=== PATIENT | female | born 1960 | race Caucasian/White ===

== ENCOUNTER 2017-03-29 11:28 | Emergency (ER) | payer OTHER ==
[~2017-03-29] VITALS: Ht 175.3 cm; Wt 74.8 kg
[~2017-03-29 11:28] MED LIST: ATEN50TA PO; CARI350T PO; ESTR10VI2 IM; OXYC30TA2 PO; PREN1TAB81 PO; PROG50VI3 IM; TRIA0.252 PO
--- NOTE | 2017-03-29 11:51 | NUR ---
PT WAS EVALUATED BY DR MCKEON. PT WAS D/C TO HOME. D/C INSTRUCTIONS GIVEN TO THE PT.
[2017-03-29 11:52] VITALS: BP 132/78
== END 2017-03-29 11:53 | disposition home or self-care (01) ==
LOC: ER 11:28
DX: Z76.0 Encounter for issue of repeat prescription (principal); I10 Essential (primary) hypertension; F32.9 Major depressive disorder, single episode, unspecified; G89.29 Other chronic pain; F17.200 Nicotine dependence, unspecified, uncomplicated; Z88.6 Allergy status to analgesic agent
CPT/HCPCS: A4663

== ENCOUNTER 2017-04-10 11:11 | Emergency (ER) | payer OTHER ==
[~2017-04-10] VITALS: Ht 175.3 cm; Wt 74.8 kg
[2017-04-10] MEDS ORDERED: PROMETHAZINE HCL 25 MG/1 ML VIAL IM ONE (12:00)
[2017-04-10] MEDS ORDERED: HYDROMORPHONE 1 MG/1 ML DISP.SYRIN IM ONE (12:00)
--- NOTE | 2017-04-10 12:01 | NUR ---
MSE COMPLETED, MEDS ADMIN, PT D/C'D HOME, ACI/RX X1 GIVEN. PT AMBULATED W'/O DIFF/TOOK ALL BELONGINGS.
[2017-04-10 12:04] VITALS: BP 142/78
[2017-04-10] MEDS ORDERED: HYDROMORPHONE 2 MG/1 ML DISP.SYRIN ONE (12:08)
[2017-04-10] MEDS ORDERED: PROMETHAZINE HCL 25 MG/1 ML VIAL ONE (12:08)
== END 2017-04-10 12:09 | disposition home or self-care (01) ==
LOC: ER 11:11
DX: M54.9 Dorsalgia, unspecified (principal); G89.29 Other chronic pain; I10 Essential (primary) hypertension; F32.9 Major depressive disorder, single episode, unspecified; F17.200 Nicotine dependence, unspecified, uncomplicated; Z88.6 Allergy status to analgesic agent
CPT/HCPCS: A4663; J1170; J2550

== ENCOUNTER 2017-04-26 14:41 | Emergency (ER) | payer OTHER ==
[~2017-04-26] VITALS: Ht 175.3 cm; Wt 74.8 kg
[2017-04-26] MEDS ORDERED: AMLO2.5T PO (14:52)
[2017-04-26] MEDS ORDERED: PROMETHAZINE HCL 25 MG/1 ML VIAL IM ONE (15:00)
[2017-04-26] MEDS ORDERED: HYDROMORPHONE 1 MG/1 ML DISP.SYRIN IM ONE (15:00)
[2017-04-26] MEDS ORDERED: PROMETHAZINE HCL 25 MG/1 ML VIAL ONE (15:12)
[2017-04-26] MEDS ORDERED: HYDROMORPHONE 2 MG/1 ML DISP.SYRIN ONE (15:12)
== END 2017-04-26 15:06 | disposition home or self-care (01) ==
LOC: ER 14:41
DX: Z76.0 Encounter for issue of repeat prescription (principal); M54.9 Dorsalgia, unspecified; G89.29 Other chronic pain; F17.200 Nicotine dependence, unspecified, uncomplicated; I10 Essential (primary) hypertension; F32.9 Major depressive disorder, single episode, unspecified; Z88.6 Allergy status to analgesic agent
CPT/HCPCS: A4663; J1170; J2550

== ENCOUNTER 2017-05-31 16:41 | Emergency (ER) | payer OTHER ==
[~2017-05-31 16:41] MED LIST changes: +AMLO2.5T PO
--- NOTE | 2017-05-31 17:15 | NUR ---
CALLED 3 TIMES, NOANSWER. PT LWBT
--- NOTE | 2017-05-31 17:50 | NUR ---
[facility]
[2017-05-31] MEDS ORDERED: ELBA1TAB PO (18:23)
== END 2017-05-31 17:15 | disposition left against medical advice (07) ==
LOC: ER 16:42
DX: G89.29 Other chronic pain (principal); M54.9 Dorsalgia, unspecified; F17.200 Nicotine dependence, unspecified, uncomplicated; I10 Essential (primary) hypertension; Z88.6 Allergy status to analgesic agent

== ENCOUNTER 2017-05-31 18:11 | Emergency (ER) | payer OTHER ==
[~2017-05-31] VITALS: Ht 175.3 cm; Wt 72.6 kg
[2017-05-31] MEDS ORDERED: ELBA1TAB PO (18:23)
--- NOTE | 2017-05-31 18:31 | NUR ---
PT IS IN ROOM #2B. DR MCKEON EVALUATED THE PT.
[2017-05-31] MEDS ORDERED: PROMETHAZINE HCL 25 MG/1 ML VIAL IM ONE (18:45)
[2017-05-31] MEDS ORDERED: HYDROMORPHONE 1 MG/1 ML DISP.SYRIN IM ONE (18:45)
--- NOTE | 2017-05-31 18:54 | NUR ---
PT WAS D/C TO HOME . D/C INSTRUCTIONS GIVEN TO THE PT.
[2017-05-31] MEDS ORDERED: HYDROMORPHONE 2 MG/1 ML DISP.SYRIN ONE (18:56)
[2017-05-31] MEDS ORDERED: PROMETHAZINE HCL 25 MG/1 ML VIAL ONE (18:57)
[2017-05-31 18:59] VITALS: BP 131/77
== END 2017-05-31 19:00 | disposition home or self-care (01) ==
LOC: ER 18:12
DX: G89.29 Other chronic pain (principal); M54.2 Cervicalgia; I10 Essential (primary) hypertension; F32.9 Major depressive disorder, single episode, unspecified; F17.200 Nicotine dependence, unspecified, uncomplicated; Z88.6 Allergy status to analgesic agent
CPT/HCPCS: A4663; J1170; J2550

== ENCOUNTER 2017-06-18 05:15 | Emergency (ER) | payer OTHER ==
[~2017-06-18] VITALS: Ht 175.3 cm; Wt 74.4 kg
[~2017-06-18 05:15] MED LIST changes: +ELBA1TAB PO
--- NOTE | 2017-06-18 05:30 | NUR ---
Patient walked in to ER c/o chronic body pain. Patient was immediately agitated upon arrival due to registration process. Patient states "I never have to fill the form out" and "my information is on file." Education provided regarding accurate records. Patient left the ER at that time stating she would go to the pharmacy instead of being seen. Patient returned several minutes later (this account) and again refused to fill out the registration form. She requested to speak to nursing social work supervisor, Nursing Industrial Workers notified and spoke with patient.
--- NOTE | 2017-06-18 05:35 | NUR ---
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
[2017-06-18] MEDS ORDERED: OXYCODONE HCL 5 MG TABLET PO ONE (05:45)
--- NOTE | 2017-06-18 05:45 | NUR ---
Patient discharged to home in stable conditon. Written and verbal after care instructions given. Patient verbalizes understanding of instructions.
--- NOTE | 2017-06-18 05:47 | NUR ---
Patient observed entering her personal vehicle and departing [place]bound on [facility] after consuming narcotic medication. ERMD, Nursing Tugboat Pilot, and [employer] notified.
[2017-06-18] MEDS ORDERED: OXYCODONE HCL 5 MG TABLET ONE (05:49)
[2017-06-19] MEDS ORDERED: OMEP20CA10 PO (11:39)
== END 2017-06-18 05:58 | disposition home or self-care (01) ==
LOC: ER 05:17
DX: G89.29 Other chronic pain (principal); Z76.5 Malingerer [conscious simulation]; F32.9 Major depressive disorder, single episode, unspecified; J84.9 Interstitial pulmonary disease, unspecified; K74.60 Unspecified cirrhosis of liver; G90.50 Complex regional pain syndrome I, unspecified; I10 Essential (primary) hypertension; Z90.49 Acquired absence of other specified parts of digestive tract; Z88.6 Allergy status to analgesic agent
CPT/HCPCS: A4663

== ENCOUNTER 2017-06-19 11:26 | Emergency (ER) | payer OTHER ==
[~2017-06-19] VITALS: Ht 175.3 cm; Wt 72.6 kg
[2017-06-19] MEDS ORDERED: OMEP20CA10 PO (11:39)
[2017-06-19 12:19] LABS: *BLOOD, URINE 1+ (NEGATIVE); *CLARITY,URINE CLEAR (CLEAR); *COLOR,URINE YELLOW (YELLOW); *KETONES,URINE 1+ (NEGATIVE); *PROTEIN,URINE 1+ (NEGATIVE); LEUKOCYTE ESTERASE ,URINE NEGATIVE (NEGATIVE); NITRITE, URINE NEGATIVE (NEGATIVE); UGLUCOSE NEGATIVE (NEGATIVE)
[2017-06-19 12:26] LABS: *BILIRUBIN,URIN NEGATIVE (NEGATIVE)
[2017-06-19 12:28] LABS: BACTERIA,URINE NONE SEEN /HPF (NONE SEEN); SQUAMOUS EPITHELIAL CELL,UR FEW /HPF (NONE SEEN); WBC,URINE NONE SEEN /HPF (0-3)
--- NOTE | 2017-06-19 15:15 | NUR ---
Patient discharged to home in stable conditon. Written and verbal after care instructions given. Patient verbalizes understanding of instructions.
== END 2017-06-19 15:16 | disposition home or self-care (01) ==
LOC: ER 11:26
DX: R31.0 Gross hematuria (principal); I10 Essential (primary) hypertension; G89.29 Other chronic pain; F32.9 Major depressive disorder, single episode, unspecified; Z88.6 Allergy status to analgesic agent; Z90.49 Acquired absence of other specified parts of digestive tract; Z87.891 Personal history of nicotine dependence
CPT/HCPCS: A4663

== ENCOUNTER 2017-07-12 08:49 | Emergency (ER) | payer OTHER ==
[~2017-07-12] VITALS: Ht 175.3 cm; Wt 73.9 kg
[~2017-07-12 08:49] MED LIST changes: -ELBA1TAB PO; +OMEP20CA10 PO
--- NOTE | 2017-07-12 09:19 | NUR ---
Patient discharged to home in stable conditon. Written and verbal after care instructions given. Patient verbalizes understanding of instructions.
== END 2017-07-12 09:20 | disposition home or self-care (01) ==
LOC: ER 08:49
DX: M54.9 Dorsalgia, unspecified (principal); R10.9 Unspecified abdominal pain; G89.29 Other chronic pain; I10 Essential (primary) hypertension; F32.9 Major depressive disorder, single episode, unspecified; F17.200 Nicotine dependence, unspecified, uncomplicated; Z88.4 Allergy status to anesthetic agent
CPT/HCPCS: A4663

== ENCOUNTER 2017-08-30 16:31 | Inpatient (IN) | payer OTHER ==
[~2017-08-30] VITALS: Ht 175.3 cm; Wt 72.6 kg
--- NOTE | 2017-08-30 18:03 | NUR ---
NPO maintained for now 2/2 to patient's complaints of abdominal pains & nausea, patient is seen resting comfortably on gurney while talking animatedly with the family members of the patient in 4B, NAD
[2017-08-30 18:04] LABS: BASOPHILS # (AUTO) 0.1 K/uL (0.0-8.0); BASOPHILS % (AUTO) 1.3 % (0.0-2.0); EOSINOPHILS # (AUTO) 0.4 K/uL (0.0-0.7); EOSINOPHILS % (AUTO) 5.5 % (0.0-7.0); HEMATOCRIT 40.3 % (37-47); HEMOGLOBIN 13.9 G/DL (12.0-16.0); LYMPHOCYTES % (AUTO) 28.1 % (20.5-51.5); MEAN CORPUSCULAR HEMOGLOBIN 33.1 UUG (27.0-31.0); MEAN CORPUSCULAR HGB CONC 35 g/dL (32.0-37.0); MEAN CORPUSCULAR VOLUME 95.9 FL (81.0-99.0); MONOCYTES # (AUTO) 0.8 K/UL (0.1-1.30); MONOCYTES % (AUTO) 12.1 % (0.0-11.0); NEUTROPHILS # (AUTO) 3.7 K/UL (1.8-8.9); PLATELET COUNT (AUTO) 197 K/UL (150-450)
[2017-08-30 18:09] LABS: CREATININE 0.7 mg/dL (0.6-1.3); POTASSIUM 3.5 mmol/L (3.5-5.1)
[2017-08-30 18:14] LABS: BILIRUBIN,TOTAL 0.2 mg/dL (0.2-1.0); TOTAL PROTEIN, SERUM 7.8 g/dL (6.4-8.2)
--- NOTE | 2017-08-30 18:35 | NUR ---
Dr Danielle is at bedside evaluating patient.
[2017-08-30] MEDS ORDERED: HYDROMORPHONE HCL 2 MG TABLET PO ONE (18:45)
[2017-08-30] MEDS ORDERED: ONDANSETRON ODT 4 MG TAB.RAPDIS SL ONE (18:45)
--- NOTE | 2017-08-30 18:50 | NUR ---
Sips of water with meds given to patient per MD order, pending results and disposition
[2017-08-30 18:55] LABS: *BILIRUBIN,URIN NEGATIVE (NEGATIVE); *BLOOD, URINE NEGATIVE (NEGATIVE); *CLARITY,URINE CLEAR (CLEAR); *COLOR,URINE LIGHT YELLOW (YELLOW); *KETONES,URINE NEGATIVE (NEGATIVE); *PROTEIN,URINE NEGATIVE (NEGATIVE); *UROBILINOGEN,URINE 0.2 E.U./dl (NORMAL); LEUKOCYTE ESTERASE ,URINE NEGATIVE (NEGATIVE); NITRITE, URINE NEGATIVE (NEGATIVE); UGLUCOSE NEGATIVE (NEGATIVE)
[2017-08-30] MEDS ORDERED: ONDANSETRON ODT 4 MG TAB.RAPDIS ONE (19:00)
[2017-08-30] MEDS ORDERED: HYDROMORPHONE HCL 2 MG TABLET ONE (19:01)
[2017-08-30 19:10] LABS: SQUAMOUS EPITHELIAL CELL,UR MODERATE /HPF (NONE SEEN); WBC,URINE 0-3 /HPF (0-3)
--- NOTE | 2017-08-30 20:26 | NUR ---
Call placed to [facility], Dr. Marcano will be paged.
[2017-08-30] MEDS ORDERED: OXYCODONE/APAP 5-325 MG TABLET PO ONE (20:30)
[2017-08-30] MEDS ORDERED: OXYCODONE/APAP 5-325 MG TABLET ONE (20:50)
--- NOTE | 2017-08-30 20:53 | NUR ---
2nd call placed to [facility], Dr. Marcano will be paged.
--- NOTE | 2017-08-30 21:01 | NUR ---
Pt. admitted to [facility], under care of Dr. Marcano Belongs List completed
[2017-08-30] MEDS ORDERED: ACETAMINOPHEN 325 MG TABLET PO PRN (21:30)
[2017-08-30] MEDS ORDERED: ONDANSETRON 4 MG/2 ML VIAL IV PRN (21:30)
[2017-08-30] MEDS ORDERED: CARISOPRODOL 350 MG TABLET PO SCH (21:30)
--- NOTE | 2017-08-30 21:30 | NUR ---
NSG: Admitted patient from ER via [facility]. A/o x4 ambulatory, able to transfer self from [facility] to bed without help/assistance. Routine admission care done. patient refused to answer questions due to assessment. patient have healed old scar on lower left leg ,under bilat breast and right knee.patient stated she have metal michelle in her leg from previous surgery done. c/o pain morphine 4 mg iv given via RN. IVHL ON RIGHT FORE ARM patient Started NS @ 75cc/hrs running well as ordred. instructed to call nurse for pain and assistance via call light. call light w/in reach..
[2017-08-30 21:35] VITALS: BP 149/55
[2017-08-30] MEDS: IV NS 1000 ML 1,000 ML IV PRN (21:45)
[2017-08-30] MEDS: AMLODIPINE 2.5 MG TABLET PO SCH (22:16)
[2017-08-30] MEDS: MORPHINE SULFATE 2 MG/1 ML DISP.SYRIN IV PRN (22:19)
[2017-08-30] MEDS ORDERED: MORPHINE SULFATE 4 MG/1 ML DISP.SYRIN ONE (22:27)
[2017-08-30] MEDS ORDERED: AMLODIPINE 2.5 MG TABLET ONE (22:28)
[2017-08-30] MEDS: TRIAZOLAM 0.125 MG TABLET PO PRN (23:27)
--- NOTE | 2017-08-30 23:28 | NUR ---
NSG: PATIENT C/O INSOMNIA. HALCION 0.125 MG PO GIVEN.
[2017-08-30] MEDS ORDERED: TRIAZOLAM 0.125 MG TABLET ONE (23:41)
[2017-08-31] MEDS: HYDROCODONE/APAP 10-325 MG TABLET PO PRN ×3 (00:18→22:22)
--- NOTE | 2017-08-31 00:20 | NUR ---
NSG: PATIENT C/O ABD PAIN. NORCO 10/325 MG PO GIVEN.
--- NOTE | 2017-08-31 00:28 | NUR ---
NSG: PATIENT STILL AWAKE.PRN NOT EFFECTIVE FOR SLEEP.
[2017-08-31] MEDS ORDERED: HYDROCODONE/APAP 10-325 MG TABLET ONE (00:32)
--- NOTE | 2017-08-31 01:20 | NUR ---
NSG: PATIENT STATED I AM FEELING BETTER NOW. PRN NORCO EFFECTIVE FOR PAIN.
[2017-08-31] MEDS: MORPHINE SULFATE 2 MG/1 ML DISP.SYRIN IV PRN ×2 (02:19→06:23)
[2017-08-31] MEDS ORDERED: MORPHINE SULFATE 4 MG/1 ML DISP.SYRIN ONE ×2 (02:28→06:34)
[2017-08-31 05:06] VITALS: BP 147/65
--- NOTE | 2017-08-31 06:45 | NUR ---
NSG: PATIENT ASKING FOR PAIN MEDICATION ROUND THE CLOCK. AMBULATE TO BATHROOM WITH STEADY GAIT. NO C/O PAIN OR DISCOMFORT THIS TIME. CONTINUE PLAN OF CARE.
[2017-08-31 07:21] LABS: BILIRUBIN,TOTAL 0.3 mg/dL (0.2-1.0); CREATININE 0.8 mg/dL (0.6-1.3); MAGNESIUM 1.9 mg/dL (1.8-2.4); PHOSPHOROUS 2.9 mg/dL (2.5-4.9); TOTAL PROTEIN, SERUM 6.9 g/dL (6.4-8.2)
[2017-08-31] MEDS ORDERED: CARISOPRODOL 350 MG TABLET PO PRN (08:00)
[2017-08-31] MEDS ORDERED: MORPHINE SULFATE 4 MG/1 ML DISP.SYRIN IV PRN (08:00)
[2017-08-31 08:07] LABS: BASOPHILS % (AUTO) 0.3 % (0.0-2.0); EOSINOPHILS # (AUTO) 0.3 K/uL (0.0-0.7); HEMATOCRIT 37.1 % (31.2-41.9); HEMOGLOBIN 13.3 g/dL (10.9-14.3); LYMPHOCYTES # (AUTO) 1.9 K/uL (20.0-40.0); LYMPHOCYTES % (AUTO) 31.2 % (20.5-51.5); MEAN CORPUSCULAR HEMOGLOBIN 34.3 uug (24.7-32.8); MEAN CORPUSCULAR HGB CONC 36 g/dL (32.3-35.6); MEAN CORPUSCULAR VOLUME 95.8 fL (75.5-95.3); MONOCYTES # (AUTO) 0.8 K/uL (2.0-10.0); MONOCYTES % (AUTO) 13.8 % (0.0-11.0); NEUTROPHILS % (AUTO) 49.7 % (38.5-71.5); PLATELET COUNT (AUTO) 190 K/uL (179-408); RED BLOOD CELL COUNT(AUTO) 3.87 MIL/uL (3.63-4.92); WHITE BLOOD COUNT (AUTO) 6.1 K/uL (3.8-11.8)
[2017-08-31] MEDS: ATENOLOL 50 MG TABLET PO SCH (08:24)
[2017-08-31] MEDS ORDERED: AMLODIPINE 2.5 MG TABLET PO SCH ×2 (09:00→21:00)
[2017-08-31] MEDS: AMLODIPINE 2.5 MG TABLET PO SCH (09:00)
[2017-08-31 11:02] VITALS: BP 128/62
[2017-08-31] MEDS: NICOTINE 7 MG/24HR PATCH TD SCH (12:28)
[2017-08-31] MEDS: HYDROMORPHONE 2 MG/1 ML DISP.SYRIN IV PRN ×3 (12:28→21:22)
[2017-08-31] MEDS: IV NS 1000 ML 1,000 ML IV PRN (12:53)
[2017-08-31] MEDS: DICYCLOMINE HCL 20 MG/2 ML AMPUL IM SCH ×2 (14:54→19:03)
[2017-08-31 15:05] VITALS: BP 122/68
[2017-08-31] MEDS: NICOTINE POLACRILEX 4 MG GUM-PK OF TEN BC PRN (19:05)
--- NOTE | 2017-08-31 19:35 | NUR ---
PT RECEIVED IN BED, AWAKE. A/OX4. ABLE TO MAKE NEEDS KNOWN. V/S STABLE. IN NO ACUTE DISTRESS. PT C/O OF ABDOMINAL PAIN 07/20. WILL ADMIN PAIN MEDICATIONS ORDERED. IVF INFUSING. ON RA, TOLERATING WELL. SAFETY MEASURES IMPLEMENTED. CALL LIGHT WITHIN REACH.
[2017-08-31 20:00] VITALS: BP 122/73
[2017-08-31] MEDS: TRIAZOLAM 0.125 MG TABLET PO PRN (21:13)
[2017-09-01] MEDS: NICOTINE POLACRILEX 4 MG GUM-PK OF TEN BC PRN ×4 (00:02→11:50)
[2017-09-01] MEDS: HYDROMORPHONE 2 MG/1 ML DISP.SYRIN IV PRN ×3 (01:21→09:14)
[2017-09-01] MEDS: IV NS 1000 ML 1,000 ML IV PRN (01:24)
[2017-09-01] MEDS: DICYCLOMINE HCL 20 MG/2 ML AMPUL IM SCH ×4 (03:06→11:28)
[2017-09-01] MEDS: HYDROCODONE/APAP 10-325 MG TABLET PO PRN ×2 (04:17→11:28)
--- NOTE | 2017-09-01 05:45 | NUR ---
END OF SHIFT NOTES. PT SLEPT INTERMITTENTLY THROUGHOUT SHIFT. IN STABLE CONDITION. IVF INFUSING. PAIN MANAGED. ALL NEEDS ATTENDED. SAFETY MAINTAINED. CALL LIGHT WITHIN REACH.
[2017-09-01 06:02] VITALS: BP 133/61
[2017-09-01 06:19] LABS: BASOPHILS % (AUTO) 0.3 % (0.0-2.0); EOSINOPHILS # (AUTO) 0.3 K/uL (0.0-0.7); EOSINOPHILS % (AUTO) 5.5 % (0.0-7.0); HEMATOCRIT 35.3 % (37-47); LYMPHOCYTES # (AUTO) 1.5 K/UL (0.8-4.8); LYMPHOCYTES % (AUTO) 23.6 % (20.5-51.5); MEAN CORPUSCULAR HEMOGLOBIN 33.2 UUG (27.0-31.0); MEAN CORPUSCULAR HGB CONC 34 g/dL (32.0-37.0); MEAN CORPUSCULAR VOLUME 97.2 FL (81.0-99.0); MONOCYTES # (AUTO) 0.8 K/UL (0.1-1.30); MONOCYTES % (AUTO) 12.1 % (0.0-11.0); NEUTROPHILS # (AUTO) 3.6 K/UL (1.8-8.9); NEUTROPHILS % (AUTO) 58.5 % (38.5-71.5); PLATELET COUNT (AUTO) 173 K/UL (150-450); RED BLOOD CELL COUNT(AUTO) 3.63 MIL/UL (4.2-5.4); WHITE BLOOD COUNT (AUTO) 6.2 K/UL (4.0-11.2)
[2017-09-01 06:34] LABS: BILIRUBIN,TOTAL 0.3 mg/dL (0.2-1.0); CREATININE 0.8 mg/dL (0.6-1.3); MAGNESIUM 1.6 mg/dL (1.8-2.4); PHOSPHOROUS 3.6 mg/dL (2.5-4.9); POTASSIUM 4.1 mmol/L (3.5-5.1); TOTAL PROTEIN, SERUM 6.2 g/dL (6.4-8.2)
--- NOTE | 2017-09-01 08:00 | NUR ---
AWAKE ALERT ORTX4 COOPERATE WELL NO SOB OR PAIN AT THIS TIME RESTING WELL WITH CALL LIGHT IN REACH CONTINUE IVF
[2017-09-01] MEDS ORDERED: ASPIRIN EC 81 MG TABLET.DR PO SCH (09:00)
[2017-09-01] MEDS: ATENOLOL 50 MG TABLET PO SCH (09:14)
[2017-09-01] MEDS: NICOTINE 7 MG/24HR PATCH TD SCH (09:14)
--- NOTE | 2017-09-01 11:00 | NUR ---
DR JULISA HIGUERA SEE PATIENT AND LAB THIS AM AND ORDER OK TO DISCHARGE HOME TODAY WITH DR DO ,D/C INSTRUCTION GIVEN ,REGARDING F/U WITH OWN PMD AND GI DR ELY ,CONTINUE HOME MEDICINE AND EDUCATION PK GIVE VERBALIZES UNDERSTAND AND SIGNS D/C SHEET HL WAS D/C AND FLU VACCINE [place] PRIOR D/C HOME TODAY
[2017-09-01 11:22] VITALS: BP 118/69
[2017-09-01] MEDS ORDERED: OXYC30TA2 PO (12:02)
[2017-09-01] MEDS ORDERED: INFLUENZA VACCINE 2017-2018 0.5 ML DISP.SYRIN IM ONE (12:30)
--- NOTE | 2017-09-01 12:30 | NUR ---
REFUSED PHAMACY TO EXPLAINED HOME MEDICINE AND DR DO
--- NOTE | 2017-09-01 13:00 | NUR ---
D/C HOME WITH HER BELONGING CONDITION STABLE
== END 2017-09-01 13:00 | disposition home or self-care (01) | DRG 254 ==
LOC: ER 16:34 → MED 21:01
PROVIDERS: ADMIT Nurse Practitioner Acute Care; ATTEND Nurse Practitioner Acute Care
DX: K59.00 Constipation, unspecified (principal); F11.20 Opioid dependence, uncomplicated; I10 Essential (primary) hypertension; K83.8 Other specified diseases of biliary tract; G89.4 Chronic pain syndrome; K57.90 Diverticulosis of intestine, part unspecified, without perforation or abscess without bleeding; Z86.19 Personal history of other infectious and parasitic diseases; Z80.9 Family history of malignant neoplasm, unspecified; Z87.891 Personal history of nicotine dependence; Z88.6 Allergy status to analgesic agent; Z87.440 Personal history of urinary (tract) infections; Z79.899 Other long term (current) drug therapy; Z82.49 Family history of ischemic heart disease and other diseases of the circulatory system; Z90.49 Acquired absence of other specified parts of digestive tract; K31.4 Gastric diverticulum; F64.0 Transsexualism; N28.1 Cyst of kidney, acquired; Z76.5 Malingerer [conscious simulation]
CPT/HCPCS: 36415; 83690; 83735; 84100; 84146; 85025; 90686; 93005; A4663; A9150; J0500; J1170; J2270; J7030; Q0162

== ENCOUNTER 2017-09-21 12:40 | Emergency (ER) | payer OTHER ==
[~2017-09-21] VITALS: Ht 175.3 cm; Wt 73.9 kg
[~2017-09-21 12:40] MED LIST changes: -OMEP20CA10 PO; -PROG50VI3 IM
[2017-09-21 13:34] LABS: CREATININE 0.7 mg/dL (0.6-1.3); POTASSIUM 3.3 mmol/L (3.5-5.1)
[2017-09-21 13:36] LABS: BASOPHILS % (AUTO) 0.6 % (0.0-2.0); EOSINOPHILS # (AUTO) 0.3 K/uL (0.0-0.7); EOSINOPHILS % (AUTO) 3.5 % (0.0-7.0); HEMOGLOBIN 13.6 g/dL (10.9-14.3); LYMPHOCYTES # (AUTO) 1.4 K/uL (20.0-40.0); LYMPHOCYTES % (AUTO) 19.3 % (20.5-51.5); MEAN CORPUSCULAR HEMOGLOBIN 33.6 uug (24.7-32.8); MEAN CORPUSCULAR HGB CONC 35 g/dL (32.3-35.6); MEAN CORPUSCULAR VOLUME 96.4 fL (75.5-95.3); MONOCYTES # (AUTO) 0.8 K/uL (2.0-10.0); MONOCYTES % (AUTO) 11.5 % (0.0-11.0); NEUTROPHILS # (AUTO) 4.8 K/uL (1.8-8.9); NEUTROPHILS % (AUTO) 65.1 % (38.5-71.5); PLATELET COUNT (AUTO) 220 K/uL (179-408); RED BLOOD CELL COUNT(AUTO) 4.04 MIL/uL (3.63-4.92); WHITE BLOOD COUNT (AUTO) 7.3 K/uL (3.8-11.8)
[2017-09-21 13:39] LABS: BILIRUBIN,DIRECT 0.1 mg/dL (0.0-0.2); BILIRUBIN,TOTAL 0.3 mg/dL (0.2-1.0); TOTAL PROTEIN, SERUM 8.1 g/dL (6.4-8.2)
--- NOTE | 2017-09-21 14:17 | NUR ---
Patient discharged to home in stable conditon. Written and verbal after care instructions given. Patient verbalizes understanding of instructions. Stressed follow up with pmd.
== END 2017-09-21 14:20 | disposition home or self-care (01) ==
LOC: ER 12:40
DX: G89.29 Other chronic pain (principal); R10.9 Unspecified abdominal pain; F17.200 Nicotine dependence, unspecified, uncomplicated; I10 Essential (primary) hypertension; Z88.6 Allergy status to analgesic agent; Z76.5 Malingerer [conscious simulation]
CPT/HCPCS: 36415; 85025; 85730; A4663

== ENCOUNTER 2017-09-23 23:30 | Emergency (ER) | payer OTHER ==
[~2017-09-23] VITALS: Ht 175.3 cm; Wt 72.6 kg
[2017-09-24 01:00] LABS: BASOPHILS # (AUTO) 0.1 K/uL (0.0-8.0); BASOPHILS % (AUTO) 0.7 % (0.0-2.0); EOSINOPHILS # (AUTO) 0.4 K/uL (0.0-0.7); HEMATOCRIT 39.9 % (37-47); HEMOGLOBIN 13.9 G/DL (12.0-16.0); LYMPHOCYTES # (AUTO) 1.4 K/UL (0.8-4.8); LYMPHOCYTES % (AUTO) 19.6 % (20.5-51.5); MEAN CORPUSCULAR HEMOGLOBIN 33.1 UUG (27.0-31.0); MEAN CORPUSCULAR HGB CONC 35 g/dL (32.0-37.0); MONOCYTES # (AUTO) 0.9 K/UL (0.1-1.30); MONOCYTES % (AUTO) 12.6 % (0.0-11.0); NEUTROPHILS # (AUTO) 4.5 K/UL (1.8-8.9); NEUTROPHILS % (AUTO) 61.1 % (38.5-71.5); PLATELET COUNT (AUTO) 282 K/UL (150-450); WHITE BLOOD COUNT (AUTO) 7.3 K/UL (4.0-11.2)
[2017-09-24 01:10] LABS: BILIRUBIN,DIRECT 0.1 mg/dL (0.0-0.2); BILIRUBIN,TOTAL 0.2 mg/dL (0.2-1.0); CREATININE 0.9 mg/dL (0.6-1.3); POTASSIUM 4.2 mmol/L (3.5-5.1); TOTAL PROTEIN, SERUM 7.5 g/dL (6.4-8.2)
[2017-09-24] MEDS: OXYCODONE HCL 5 MG TABLET PO ONE (01:14)
[2017-09-24] MEDS ORDERED: OXYCODONE HCL 5 MG TABLET ONE (01:27)
--- NOTE | 2017-09-24 01:31 | NUR ---
Patient discharged to home in stable conditon. Written and verbal after care instructions given. Patient verbalizes understanding of instructions.
== END 2017-09-24 01:32 | disposition home or self-care (01) ==
LOC: ER 23:33
DX: B19.20 Unspecified viral hepatitis C without hepatic coma (principal); I10 Essential (primary) hypertension; J84.9 Interstitial pulmonary disease, unspecified; G90.50 Complex regional pain syndrome I, unspecified; F17.200 Nicotine dependence, unspecified, uncomplicated; Z88.6 Allergy status to analgesic agent; Z90.49 Acquired absence of other specified parts of digestive tract
CPT/HCPCS: 36415; 83690; 85025; 85730; A4663

== ENCOUNTER 2017-12-29 14:25 | Emergency (ER) | payer OTHER ==
[~2017-12-29] VITALS: Ht 175.3 cm; Wt 72.6 kg
--- NOTE | 2017-12-29 15:07 | NUR ---
Pt c/o n/v and/or diarrhea since 12/17. Pt also states that she had LUQ pain yesterday. Pt denies CP, SOB, dizziness, no other complaints, no distress noted.
[2017-12-29 15:30] LABS: CREATININE 0.9 mg/dL (0.6-1.3); POTASSIUM 4.3 mmol/L (3.5-5.1)
[2017-12-29 15:31] LABS: BASOPHILS % (AUTO) 0.5 % (0.0-2.0); EOSINOPHILS # (AUTO) 0.2 K/uL (0.0-0.7); EOSINOPHILS % (AUTO) 3.1 % (0.0-7.0); HEMATOCRIT 40.8 % (31.2-41.9); HEMOGLOBIN 14.2 g/dL (10.9-14.3); LYMPHOCYTES # (AUTO) 1.7 K/uL (20.0-40.0); LYMPHOCYTES % (AUTO) 23.3 % (20.5-51.5); MEAN CORPUSCULAR HEMOGLOBIN 33.1 uug (24.7-32.8); MEAN CORPUSCULAR HGB CONC 35 g/dL (32.3-35.6); MEAN CORPUSCULAR VOLUME 95.2 fL (75.5-95.3); MONOCYTES # (AUTO) 0.8 K/uL (2.0-10.0); MONOCYTES % (AUTO) 11.1 % (0.0-11.0); NEUTROPHILS # (AUTO) 4.5 K/uL (1.8-8.9); PLATELET COUNT (AUTO) 191 K/uL (179-408); RED BLOOD CELL COUNT(AUTO) 4.29 MIL/uL (3.63-4.92); WHITE BLOOD COUNT (AUTO) 7.3 K/uL (3.8-11.8)
[2017-12-29 15:40] LABS: BILIRUBIN,DIRECT 0.1 mg/dL (0.0-0.2); BILIRUBIN,TOTAL 0.3 mg/dL (0.2-1.0); TOTAL PROTEIN, SERUM 8.2 g/dL (6.4-8.2)
== END 2017-12-29 16:52 | disposition home or self-care (01) ==
LOC: ER 14:25
DX: R11.2 Nausea with vomiting, unspecified (principal); T40.2X5A Adverse effect of other opioids, initial encounter; Y92.89 Other specified places as the place of occurrence of the external cause; I10 Essential (primary) hypertension; G89.29 Other chronic pain; Z90.89 Acquired absence of other organs; Z88.5 Allergy status to narcotic agent; Z88.8 Allergy status to other drugs, medicaments and biological substances; Z79.891 Long term (current) use of opiate analgesic; Z79.899 Other long term (current) drug therapy
CPT/HCPCS: 36415; 80048; 80076; 85025; 99284; A4663

== ENCOUNTER 2018-01-01 13:50 | Emergency (ER) | payer OTHER ==
[~2018-01-01] VITALS: Ht 175.3 cm; Wt 72.6 kg
[2018-01-01 14:59] LABS: *BILIRUBIN,URIN NEGATIVE (NEGATIVE); *BLOOD, URINE NEGATIVE (NEGATIVE); *CLARITY,URINE CLEAR (CLEAR); *COLOR,URINE YELLOW (YELLOW); *KETONES,URINE NEGATIVE (NEGATIVE); *PROTEIN,URINE NEGATIVE (NEGATIVE); *UROBILINOGEN,URINE 0.2 E.U./dl (NORMAL); LEUKOCYTE ESTERASE ,URINE NEGATIVE (NEGATIVE); NITRITE, URINE NEGATIVE (NEGATIVE); PH,URINE 6.5 (5.0-8.0); UGLUCOSE NEGATIVE (NEGATIVE)
--- NOTE | 2018-01-01 15:09 | NUR ---
URINE SENT. PT POSITIONED FOR COMFORT.
[2018-01-01 15:15] LABS: SQUAMOUS EPITHELIAL CELL,UR MODERATE /HPF (NONE SEEN); WBC,URINE 0-3 /HPF (0-3)
--- NOTE | 2018-01-01 15:33 | NUR ---
MSE COMPLETED, PT D/C'D HOME, ACI GIVEN. PT AMBULATED W/O DIFF, TOOK ALL BELONGINGS.
[2018-01-01 15:35] VITALS: BP 136/68
== END 2018-01-01 15:35 | disposition home or self-care (01) ==
LOC: ER 13:50
DX: R82.99 Other abnormal findings in urine (principal); I10 Essential (primary) hypertension; G89.29 Other chronic pain; Z88.5 Allergy status to narcotic agent; Z88.8 Allergy status to other drugs, medicaments and biological substances; Z79.891 Long term (current) use of opiate analgesic; Z79.899 Other long term (current) drug therapy; Z90.89 Acquired absence of other organs; Z90.49 Acquired absence of other specified parts of digestive tract
CPT/HCPCS: 81001; 99283; A4663

== ENCOUNTER 2018-01-08 19:16 | Emergency (ER) | payer OTHER ==
--- NOTE | 2018-01-08 20:00 | NUR ---
No answer in the wr
--- NOTE | 2018-01-08 20:15 | NUR ---
No answer in the wr when called by second nurse.
== END 2018-01-08 20:17 | disposition left against medical advice (07) ==
LOC: ER 19:16
DX: Z53.21 Procedure and treatment not carried out due to patient leaving prior to being seen by health care provider (principal)

== ENCOUNTER 2018-05-27 13:38 | Emergency (ER) | payer OTHER ==
--- NOTE | 2018-05-27 13:49 | NUR ---
Pt was not found in ER lobby. Per ER admitting pt decided not to be seen in ER.
== END 2018-05-27 14:00 | disposition left against medical advice (07) ==
LOC: ER 13:38
DX: Z53.21 Procedure and treatment not carried out due to patient leaving prior to being seen by health care provider (principal)

== ENCOUNTER 2018-05-31 13:25 | Emergency (ER) | payer OTHER ==
[~2018-05-31] VITALS: Ht 175.3 cm; Wt 72.6 kg
--- NOTE | 2018-05-31 13:57 | NUR ---
PT IS IN ROOM #2A. DR MARTINEZ EVALUATED THE PT.
[2018-05-31 14:29] LABS: BASOPHILS % (AUTO) 0.6 % (0.0-2.0); EOSINOPHILS # (AUTO) 0.1 K/uL (0.0-0.7); EOSINOPHILS % (AUTO) 1.1 % (0.0-7.0); HEMATOCRIT 41.1 % (31.2-41.9); HEMOGLOBIN 14.1 g/dL (10.9-14.3); LYMPHOCYTES # (AUTO) 1.6 K/uL (20.0-40.0); MEAN CORPUSCULAR HEMOGLOBIN 34.6 uug (24.7-32.8); MEAN CORPUSCULAR HGB CONC 34 g/dL (32.3-35.6); MONOCYTES # (AUTO) 0.8 K/uL (2.0-10.0); MONOCYTES % (AUTO) 10.8 % (0.0-11.0); NEUTROPHILS # (AUTO) 5.1 K/uL (1.8-8.9); NEUTROPHILS % (AUTO) 66.5 % (38.5-71.5); PLATELET COUNT (AUTO) 232 K/uL (179-408); RED BLOOD CELL COUNT(AUTO) 4.07 MIL/uL (3.63-4.92); WHITE BLOOD COUNT (AUTO) 7.6 K/uL (3.8-11.8)
[2018-05-31 14:38] LABS: CREATININE 0.8 mg/dL (0.6-1.3); POTASSIUM 3.6 mmol/L (3.5-5.1)
[2018-05-31 14:51] LABS: BILIRUBIN,DIRECT 0.1 mg/dL (0.0-0.2); BILIRUBIN,TOTAL 0.4 mg/dL (0.2-1.0); TOTAL PROTEIN, SERUM 8.1 g/dL (6.4-8.2)
--- NOTE | 2018-05-31 15:31 | NUR ---
PT WAS D/C TO HOME. D/C INSTRUCTIONS GIVEN TO THE PT,
[2018-05-31 15:33] VITALS: BP 132/79
== END 2018-05-31 15:34 | disposition home or self-care (01) ==
LOC: ER 13:27
DX: R60.9 Edema, unspecified (principal); I10 Essential (primary) hypertension; G89.29 Other chronic pain; Z88.5 Allergy status to narcotic agent; Z88.8 Allergy status to other drugs, medicaments and biological substances; Z90.49 Acquired absence of other specified parts of digestive tract; Z90.89 Acquired absence of other organs; Z79.891 Long term (current) use of opiate analgesic; Z79.899 Other long term (current) drug therapy
CPT/HCPCS: 36415; 71045; 80048; 80076; 83880; 84443; 84484; 85025; 85730; 93005; 99285; A4663; 70030-TC

== ENCOUNTER 2018-09-01 16:54 | Emergency (ER) | payer OTHER ==
[~2018-09-01] VITALS: Ht 175.3 cm; Wt 52.6 kg
[~2018-09-01 16:54] MED LIST changes: -AMLO2.5T PO; +AMLO2.5T3 PO
--- NOTE | 2018-09-01 17:29 | NUR ---
at bedside to examine patient.
--- NOTE | 2018-09-01 17:56 | NUR ---
Patient discharged to home in stable conditon. Written and verbal after care instructions given. Patient verbalizes understanding of instructions.
== END 2018-09-01 17:57 | disposition home or self-care (01) ==
LOC: ER 16:54
DX: S61.213A Laceration without foreign body of left middle finger without damage to nail, initial encounter (principal); I10 Essential (primary) hypertension; F17.200 Nicotine dependence, unspecified, uncomplicated; Z90.49 Acquired absence of other specified parts of digestive tract; Z90.89 Acquired absence of other organs; Z88.5 Allergy status to narcotic agent; Z88.8 Allergy status to other drugs, medicaments and biological substances; W26.0XXA Contact with knife, initial encounter; Y93.89 Activity, other specified; Y92.89 Other specified places as the place of occurrence of the external cause; Y99.8 Other external cause status
CPT/HCPCS: A4217; A4663

== ENCOUNTER 2019-03-23 14:45 | Emergency (ER) | payer OTHER ==
[~2019-03-23] VITALS: Ht 175.3 cm; Wt 70.3 kg
[~2019-03-23 14:45] MED LIST changes: -AMLO2.5T3 PO; +AMLO2.5T4 PO
[2019-03-23] MEDS ORDERED: HYDROCODONE/APAP 5-325MG TABLET PO ONE (15:15)
[2019-03-23 15:27] LABS: BASOPHILS % (AUTO) 0.7 % (0.0-2.0); EOSINOPHILS # (AUTO) 0.1 K/uL (0.0-0.7); EOSINOPHILS % (AUTO) 1.5 % (0.0-7.0); HEMATOCRIT 38.5 % (31.2-41.9); HEMOGLOBIN 13.1 g/dL (10.9-14.3); LYMPHOCYTES # (AUTO) 1.7 K/uL (20.0-40.0); LYMPHOCYTES % (AUTO) 28.2 % (20.5-51.5); MEAN CORPUSCULAR HEMOGLOBIN 34.1 uug (24.7-32.8); MEAN CORPUSCULAR HGB CONC 34 g/dL (32.3-35.6); MEAN CORPUSCULAR VOLUME 99.9 fL (75.5-95.3); MONOCYTES # (AUTO) 0.7 K/uL (2.0-10.0); MONOCYTES % (AUTO) 11.9 % (0.0-11.0); NEUTROPHILS # (AUTO) 3.6 K/uL (1.8-8.9); NEUTROPHILS % (AUTO) 57.7 % (38.5-71.5); PLATELET COUNT (AUTO) 223 K/uL (179-408); RED BLOOD CELL COUNT(AUTO) 3.85 MIL/uL (3.63-4.92); WHITE BLOOD COUNT (AUTO) 6.2 K/uL (3.8-11.8)
[2019-03-23] MEDS ORDERED: HYDROCODONE/APAP 5-325MG TABLET ONE (15:27)
[2019-03-23 15:40] LABS: CREATININE 0.9 mg/dL (0.6-1.3); POTASSIUM 3.3 mmol/L (3.5-5.1)
[2019-03-23 15:46] LABS: BILIRUBIN,DIRECT 0.1 mg/dL (0.0-0.2); BILIRUBIN,TOTAL 0.3 mg/dL (0.2-1.0)
[2019-03-23 16:13] LABS: *BILIRUBIN,URIN NEGATIVE (NEGATIVE); *BLOOD, URINE NEGATIVE (NEGATIVE); *CLARITY,URINE CLEAR (CLEAR); *COLOR,URINE LIGHT YELLOW (YELLOW); *KETONES,URINE NEGATIVE (NEGATIVE); *UROBILINOGEN,URINE 0.2 E.U./dl (NORMAL); LEUKOCYTE ESTERASE ,URINE NEGATIVE (NEGATIVE); NITRITE, URINE NEGATIVE (NEGATIVE); PH,URINE 7.5 (5.0-8.0); UGLUCOSE NEGATIVE (NEGATIVE)
[2019-03-23 16:26] LABS: SQUAMOUS EPITHELIAL CELL,UR MODERATE /HPF (NONE SEEN); WBC,URINE 0-3 /HPF (0-3)
--- NOTE | 2019-03-23 16:50 | NUR ---
Patient discharged to home in stable conditon. Written and verbal after care instructions given. Patient verbalizes understanding of instructions.
[2019-03-23 16:51] VITALS: BP 133/70
== END 2019-03-23 16:52 | disposition home or self-care (01) ==
LOC: ER 14:45
DX: G89.29 Other chronic pain (principal); E87.6 Hypokalemia; R22.43 Localized swelling, mass and lump, lower limb, bilateral; R79.89 Other specified abnormal findings of blood chemistry; R09.81 Nasal congestion; J02.9 Acute pharyngitis, unspecified; R07.9 Chest pain, unspecified; R11.10 Vomiting, unspecified; I10 Essential (primary) hypertension; F17.200 Nicotine dependence, unspecified, uncomplicated; Z88.8 Allergy status to other drugs, medicaments and biological substances; Z79.899 Other long term (current) drug therapy
CPT/HCPCS: 36415; 70030-TC; 71045; 83690; 85025; 93005; A4663

== ENCOUNTER 2019-11-22 12:56 | Emergency (ER) | payer OTHER ==
[~2019-11-22] VITALS: Ht 175.3 cm; Wt 72.1 kg
--- NOTE | 2019-11-22 13:19 | NUR ---
Patient discharged to home in stable conditon. Written and verbal after care instructions given. Patient verbalizes understanding of instructions.pt walks i nsteady gait.
== END 2019-11-22 13:23 | disposition home or self-care (01) ==
LOC: ER 12:56
DX: J20.9 Acute bronchitis, unspecified (principal); I10 Essential (primary) hypertension; F32.9 Major depressive disorder, single episode, unspecified; Z88.8 Allergy status to other drugs, medicaments and biological substances; F17.200 Nicotine dependence, unspecified, uncomplicated; Z79.899 Other long term (current) drug therapy
CPT/HCPCS: A4663

== ENCOUNTER 2019-12-01 11:15 | Emergency (ER) | payer OTHER ==
[~2019-12-01] VITALS: Ht 175.3 cm; Wt 72.1 kg
--- NOTE | 2019-12-01 12:18 | NUR ---
Patient discharged to home in stable conditon. Written and verbal after care instructions given. Patient verbalizes understanding of instructions.PT WALKS IN STEADY GAIT.
[2019-12-01 12:19] VITALS: BP 102/77
== END 2019-12-01 12:20 | disposition home or self-care (01) ==
LOC: ER 11:15
DX: J40 Bronchitis, not specified as acute or chronic (principal); I10 Essential (primary) hypertension; F32.9 Major depressive disorder, single episode, unspecified; F17.200 Nicotine dependence, unspecified, uncomplicated; Z88.8 Allergy status to other drugs, medicaments and biological substances; Z79.899 Other long term (current) drug therapy
CPT/HCPCS: 71046; A4663

== ENCOUNTER 2020-01-03 21:52 | Emergency (ER) | payer OTHER ==
[~2020-01-03] VITALS: Ht 170.2 cm; Wt 71.2 kg
[2020-01-03] MEDS ORDERED: MORPHINE SULFATE 4 MG/1 ML DISP.SYRIN IM ONE (22:30)
[2020-01-03 22:36] LABS: BASOPHILS % (AUTO) 0.7 % (0.0-2.0); EOSINOPHILS # (AUTO) 0.1 K/uL (0.0-0.7); EOSINOPHILS % (AUTO) 1.5 % (0.0-7.0); HEMATOCRIT 40.7 % (31.2-41.9); HEMOGLOBIN 14.2 g/dL (10.9-14.3); LYMPHOCYTES # (AUTO) 1.6 K/uL (20.0-40.0); LYMPHOCYTES % (AUTO) 32.6 % (20.5-51.5); MEAN CORPUSCULAR HEMOGLOBIN 35.5 uug (24.7-32.8); MEAN CORPUSCULAR HGB CONC 35 g/dL (32.3-35.6); MEAN CORPUSCULAR VOLUME 101.7 fL (75.5-95.3); MONOCYTES # (AUTO) 0.7 K/uL (2.0-10.0); MONOCYTES % (AUTO) 14.6 % (0.0-11.0); NEUTROPHILS # (AUTO) 2.4 K/uL (1.8-8.9); NEUTROPHILS % (AUTO) 50.6 % (38.5-71.5); PLATELET COUNT (AUTO) 213 K/uL (179-408); WHITE BLOOD COUNT (AUTO) 4.8 K/uL (3.8-11.8)
[2020-01-03 22:38] LABS: CREATININE 0.7 mg/dL (0.6-1.3); POTASSIUM 4.4 mmol/L (3.5-5.1)
[2020-01-03] MEDS ORDERED: MORPHINE SULFATE 4 MG/1 ML DISP.SYRIN ONE (22:45)
--- NOTE | 2020-01-03 22:56 | NUR ---
Patient returned from CT scan. No distress noted. Will continue to monitor
[2020-01-03] MEDS ORDERED: HYDROMORPHONE 1 MG/1 ML DISP.SYRIN ONE (23:39)
[2020-01-03] MEDS ORDERED: HYDROMORPHONE 1 MG/1 ML DISP.SYRIN IM ONE (23:45)
--- NOTE | 2020-01-03 23:58 | NUR ---
Patient discharged to home in stable conditon. Patient instructed not to drive. Written and verbal after care instructions given. Patient verbalizes understanding of instructions.
== END 2020-01-04 | disposition home or self-care (01) ==
LOC: ER 21:52
DX: M25.512 Pain in left shoulder (principal); R42 Dizziness and giddiness; I10 Essential (primary) hypertension; F17.200 Nicotine dependence, unspecified, uncomplicated; G89.29 Other chronic pain; Z90.49 Acquired absence of other specified parts of digestive tract; Z88.6 Allergy status to analgesic agent; Z79.899 Other long term (current) drug therapy
CPT/HCPCS: 36415; 70450; 71045; 73030; 80048; 84484; 85025; 93005; 96372 ×2; 99285; J1170; J2270; 70030-TC; A4663

== ENCOUNTER 2020-03-26 14:59 | Emergency (ER) | payer OTHER ==
[~2020-03-26] VITALS: Ht 170.2 cm; Wt 65.8 kg
--- NOTE | 2020-03-26 15:20 | NUR ---
Seen,examined by .
[2020-03-26] MEDS ORDERED: MORPHINE SULFATE 4 MG/1 ML DISP.SYRIN ONE (15:35)
[2020-03-26] MEDS: MORPHINE SULFATE 4 MG/1 ML DISP.SYRIN IM ONE (15:40)
[2020-03-26 15:47] VITALS: BP 144/95
== END 2020-03-26 15:50 | disposition home or self-care (01) ==
LOC: ER 15:03
DX: M54.41 Lumbago with sciatica, right side (principal); M25.512 Pain in left shoulder; G89.4 Chronic pain syndrome; Z76.5 Malingerer [conscious simulation]; I10 Essential (primary) hypertension
CPT/HCPCS: 96372; 99283; J2270; A4663

== ENCOUNTER 2020-04-08 13:20 | Emergency (ER) | payer OTHER ==
[~2020-04-08] VITALS: Ht 175.3 cm; Wt 63.5 kg
--- NOTE | 2020-04-08 13:36 | NUR ---
PATIENT WAS MSE BY DR MCKEON IN ROOM 05A. PATIENT A & O X4.
--- NOTE | 2020-04-08 14:03 | NUR ---
Patient discharged to home in stable condition. Written and verbal after care instructions given. Patient verbalizes understanding of instructions. Stressed follow up or return to ER for worsening s/s.
[2020-04-08 14:08] VITALS: BP 120/78
[2020-04-25] MEDS ORDERED: AMLO5TAB4 PO (16:48)
[2020-04-25] MEDS ORDERED: ACID1TAB4 PO (16:48)
== END 2020-04-08 14:14 | disposition home or self-care (01) ==
LOC: ER 13:23
DX: K13.0 Diseases of lips (principal); S01.531A Puncture wound without foreign body of lip, initial encounter; X78.8XXA Intentional self-harm by other sharp object, initial encounter; Y92.89 Other specified places as the place of occurrence of the external cause; I10 Essential (primary) hypertension; Z87.890 Personal history of sex reassignment; Z87.891 Personal history of nicotine dependence
CPT/HCPCS: A4663

== ENCOUNTER 2020-04-16 11:31 | Emergency (ER) | payer OTHER ==
[~2020-04-16] VITALS: Ht 175.3 cm; Wt 63.5 kg
[2020-04-16] MEDS ORDERED: ONDANSETRON 4 MG/2 ML VIAL IV ONE (12:00)
[2020-04-16] MEDS ORDERED: MORPHINE SULFATE 4 MG/1 ML DISP.SYRIN IV ONE (12:00)
[2020-04-16] MEDS ORDERED: IV NORMAL SALINE 1000 ML BAG IV ONE (12:00)
[2020-04-16 12:17] LABS: BASOPHILS % (AUTO) 0.6 % (0.0-2.0); EOSINOPHILS % (AUTO) 0.1 % (0.0-7.0); HEMATOCRIT 42.7 % (31.2-41.9); HEMOGLOBIN 14.9 g/dL (10.9-14.3); LYMPHOCYTES # (AUTO) 1.2 K/uL (20.0-40.0); MONOCYTES # (AUTO) 0.8 K/uL (2.0-10.0); MONOCYTES % (AUTO) 15.8 % (0.0-11.0); NEUTROPHILS # (AUTO) 2.9 K/uL (1.8-8.9); NEUTROPHILS % (AUTO) 59.5 % (38.5-71.5); PLATELET COUNT (AUTO) 149 K/uL (179-408); RED BLOOD CELL COUNT(AUTO) 4.08 MIL/uL (3.63-4.92); WHITE BLOOD COUNT (AUTO) 4.9 K/uL (3.8-11.8)
[2020-04-16] MEDS ORDERED: ONDANSETRON 4 MG/2 ML VIAL ONE ×2 (12:17→12:19)
[2020-04-16] MEDS ORDERED: MORPHINE SULFATE 4 MG/1 ML DISP.SYRIN ONE (12:17)
[2020-04-16] MEDS ORDERED: HYDROMORPHONE 2 MG/1 ML DISP.SYRIN ONE (12:20)
--- NOTE | 2020-04-16 12:24 | NUR ---
PT IS INROO #2B. DR MARTINEZ EVALUATED THE PT.
[2020-04-16 12:26] LABS: CREATININE 0.8 mg/dL (0.6-1.3); POTASSIUM 4.1 mmol/L (3.5-5.1)
[2020-04-16 12:30] LABS: MEAN CORPUSCULAR HEMOGLOBIN 37.1 uug (24.7-32.8); MEAN CORPUSCULAR HGB CONC 35 g/dL (32.3-35.6); MEAN CORPUSCULAR VOLUME 104.7 fL (75.5-95.3)
[2020-04-16] MEDS ORDERED: HYDROMORPHONE 1 MG/1 ML DISP.SYRIN IV ONE (12:30)
[2020-04-16 12:32] LABS: BILIRUBIN,DIRECT 0.3 mg/dL (0.0-0.2); BILIRUBIN,TOTAL 0.7 mg/dL (0.2-1.0); TOTAL PROTEIN, SERUM 8.1 g/dL (6.4-8.2)
[2020-04-16 12:37] LABS: BAND % (MANUAL) 1 % (0-10); BASOPHILS % (MANUAL) 1 % (0-2); EOSINOPHILS % (MANUAL) 1 % (0-8); LYMPHOCYTES % (MANUAL) 26 % (20-40); MONOCYTES % (MANUAL) 13 % (2-10); NEUTROPHILS % (MANUAL) 58 % (42-75)
[2020-04-16] MEDS ORDERED: LIDOCAINE VISCUS 2% 15 ML UDC MM ONE (12:45)
[2020-04-16] MEDS ORDERED: CLINDAMYCIN PHOSPHATE IV 300 MG in IV DEXTROSE 5% 100 ML IV ONE (13:00)
[2020-04-16] MEDS ORDERED: LIDOCAINE VISCUS 2% 15 ML UDC ONE (13:17)
[2020-04-16] MEDS ORDERED: CLINDAMYCIN PHOSPHATE 600 MG/4 ML VIAL ONE (13:18)
--- NOTE | 2020-04-16 14:41 | NUR ---
PT WAS D/C'd TO HOME. D/C INSTRUCTIONS GIVEN TO THE PT BY DR MARTINEZ.
[2020-04-16 14:44] VITALS: BP 135/77
[2020-04-25] MEDS ORDERED: AMLO5TAB4 PO (16:48)
[2020-04-25] MEDS ORDERED: ACID1TAB4 PO (16:48)
== END 2020-04-16 14:45 | disposition home or self-care (01) ==
LOC: ER 11:36
DX: S00.501A Unspecified superficial injury of lip, initial encounter (principal); L08.9 Local infection of the skin and subcutaneous tissue, unspecified; X78.8XXA Intentional self-harm by other sharp object, initial encounter; Y92.89 Other specified places as the place of occurrence of the external cause; Y99.8 Other external cause status; I10 Essential (primary) hypertension; E86.0 Dehydration; R79.89 Other specified abnormal findings of blood chemistry; G89.29 Other chronic pain; Z79.899 Other long term (current) drug therapy
CPT/HCPCS: 36415; 80048; 80076; 85025; 85730; 96361; 96365; 96375; 99284; J1170; J2405 ×2; J3490; 70030-TC; A4663; J2270; J7030

== ENCOUNTER 2020-04-18 16:12 | Emergency (ER) | payer OTHER ==
[~2020-04-18] VITALS: Ht 175.3 cm; Wt 65.3 kg
[2020-04-18] MEDS ORDERED: HYDROCODONE/APAP 5-325MG TABLET PO ONE (16:30)
[2020-04-18] MEDS ORDERED: HYDROCODONE/APAP 5-325MG TABLET ONE (16:33)
[2020-04-18 16:51] LABS: BASOPHILS # (AUTO) 0.1 K/uL (0.0-8.0); BASOPHILS % (AUTO) 1.3 % (0.0-2.0); EOSINOPHILS % (AUTO) 0.9 % (0.0-7.0); HEMATOCRIT 42.4 % (31.2-41.9); HEMOGLOBIN 14.6 g/dL (10.9-14.3); LYMPHOCYTES # (AUTO) 1.2 K/uL (20.0-40.0); LYMPHOCYTES % (AUTO) 29.5 % (20.5-51.5); MEAN CORPUSCULAR HEMOGLOBIN 36.2 uug (24.7-32.8); MEAN CORPUSCULAR HGB CONC 34 g/dL (32.3-35.6); MEAN CORPUSCULAR VOLUME 105.3 fL (75.5-95.3); MONOCYTES # (AUTO) 0.7 K/uL (2.0-10.0); MONOCYTES % (AUTO) 16.5 % (0.0-11.0); NEUTROPHILS % (AUTO) 51.8 % (38.5-71.5); PLATELET COUNT (AUTO) 155 K/uL (179-408); RED BLOOD CELL COUNT(AUTO) 4.03 MIL/uL (3.63-4.92)
[2020-04-18 17:06] LABS: BILIRUBIN,DIRECT 0.3 mg/dL (0.0-0.2); BILIRUBIN,TOTAL 0.6 mg/dL (0.2-1.0); POTASSIUM 4.1 mmol/L (3.5-5.1); TOTAL PROTEIN, SERUM 7.7 g/dL (6.4-8.2)
[2020-04-18 17:07] LABS: EOSINOPHILS % (MANUAL) 2 % (0-8); LYMPHOCYTES % (MANUAL) 30 % (20-40); MONOCYTES % (MANUAL) 16 % (2-10); NEUTROPHILS % (MANUAL) 52 % (42-75)
--- NOTE | 2020-04-18 17:23 | NUR ---
pt did not have bm/n/v while in er.
[2020-04-18 17:24] VITALS: BP 161/86
--- NOTE | 2020-04-18 17:24 | NUR ---
Patient discharged to home in stable condition. Written and verbal after care instructions given. Patient verbalizes understanding of instructions. Stressed follow up or return to ER for worsening s/s.pt walks in steady gaait. Addendum: 04/18/20 at 1725 by MIC pt called for ride to go home.
[2020-04-25] MEDS ORDERED: ACID1TAB4 PO (16:48)
[2020-04-25] MEDS ORDERED: AMLO5TAB4 PO (16:48)
== END 2020-04-18 17:31 | disposition home or self-care (01) ==
LOC: ER 16:17
DX: R19.7 Diarrhea, unspecified (principal); G89.29 Other chronic pain; R79.89 Other specified abnormal findings of blood chemistry; I10 Essential (primary) hypertension; Z76.5 Malingerer [conscious simulation]; Z86.19 Personal history of other infectious and parasitic diseases; R11.10 Vomiting, unspecified; Z79.899 Other long term (current) drug therapy
CPT/HCPCS: 36415; 70030-TC; 83690; 85025; A4663

== ENCOUNTER 2020-04-23 15:53 | Inpatient (IN) | payer OTHER ==
[~2020-04-23] VITALS: Ht 175.3 cm; Wt 67.2 kg
--- NOTE | 2020-04-23 16:18 | NUR ---
[email or web address] , medical screening exam in progress
--- NOTE | 2020-04-23 16:25 | NUR ---
Patient is demanding a stool exam/test, MD notified.
[2020-04-23] MEDS ORDERED: HYDROMORPHONE 1 MG/1 ML DISP.SYRIN IV ONE ×3 (16:30→20:45)
[2020-04-23] MEDS ORDERED: IV NORMAL SALINE 1000 ML BAG IV ONE (16:30)
[2020-04-23] MEDS ORDERED: ONDANSETRON 4 MG/2 ML VIAL IV ONE ×2 (16:30→18:45)
[2020-04-23] MEDS ORDERED: ONDANSETRON 4 MG/2 ML VIAL ONE ×2 (16:31→19:16)
[2020-04-23] MEDS ORDERED: HYDROMORPHONE 2 MG/1 ML DISP.SYRIN ONE (16:31)
[2020-04-23 17:12] LABS: EOSINOPHILS % (AUTO) 0.2 % (0.0-7.0); HEMATOCRIT 39.1 % (31.2-41.9); HEMOGLOBIN 13.7 g/dL (10.9-14.3); LYMPHOCYTES # (AUTO) 0.7 K/uL (20.0-40.0); LYMPHOCYTES % (AUTO) 15.4 % (20.5-51.5); MEAN CORPUSCULAR HEMOGLOBIN 37.3 uug (24.7-32.8); MEAN CORPUSCULAR HGB CONC 35 g/dL (32.3-35.6); MONOCYTES # (AUTO) 0.8 K/uL (2.0-10.0); MONOCYTES % (AUTO) 19.1 % (0.0-11.0); NEUTROPHILS # (AUTO) 2.8 K/uL (1.8-8.9); NEUTROPHILS % (AUTO) 64.3 % (38.5-71.5); PLATELET COUNT (AUTO) 123 K/uL (179-408); RED BLOOD CELL COUNT(AUTO) 3.69 MIL/uL (3.63-4.92); WHITE BLOOD COUNT (AUTO) 4.3 K/uL (3.8-11.8)
--- NOTE | 2020-04-23 17:31 | NUR ---
Patient is seen drinking from her own water bottle, NAD, for results and disposition
[2020-04-23 17:45] LABS: BILIRUBIN,DIRECT 0.3 mg/dL (0.0-0.2); BILIRUBIN,TOTAL 0.7 mg/dL (0.2-1.0); CREATININE 0.9 mg/dL (0.6-1.3); TOTAL PROTEIN, SERUM 6.3 g/dL (6.4-8.2)
[2020-04-23 17:48] LABS: POTASSIUM 2.6 mmol/L (3.5-5.1)
[2020-04-23 17:57] LABS: NEUTROPHILS % (MANUAL) 68 % (42-75)
[2020-04-23 17:58] LABS: BAND % (MANUAL) 2 % (0-10); LYMPHOCYTES % (MANUAL) 12 % (20-40); MONOCYTES % (MANUAL) 18 % (2-10)
[2020-04-23] MEDS ORDERED: POTASSIUM CHLORIDE 20 MEQ TAB.PRT.SR PO ONE (18:00)
--- NOTE | 2020-04-23 18:23 | NUR ---
No vomiting, no diarrhea episodes in ER, patient wants more pain medicines, Dr Braga notified
[2020-04-23] MEDS ORDERED: HYDROMORPHONE 1 MG/1 ML DISP.SYRIN ONE ×2 (19:16→20:50)
[2020-04-23] MEDS ORDERED: POTASSIUM CHLORIDE 20 MEQ TAB.PRT.SR ONE (19:16)
--- NOTE | 2020-04-23 19:24 | NUR ---
Still for CT scan & admission to 3rd floor, pending accepting nurse@this time, ednorsed to RN Dayanna accordingly
--- NOTE | 2020-04-23 19:28 | NUR ---
Per Vy Anderson, wait for CT scan results prior to transfer to inpatient.
[2020-04-23] MEDS ORDERED: diphenhydrAMINE 50 MG/1 ML VIAL IV ONE (20:45)
[2020-04-23] MEDS ORDERED: Z GUARD REMEDY PASTE 57 GM TUBE TOP PRN (20:45)
[2020-04-23] MEDS ORDERED: ACETAMINOPHEN 325 MG TABLET PO PRN (20:45)
[2020-04-23] MEDS ORDERED: METOCLOPRAMIDE HCL 10 MG/2 ML VIAL IV ONE (20:45)
[2020-04-23] MEDS ORDERED: ONDANSETRON 4 MG/2 ML VIAL IV PRN (20:45)
[2020-04-23 20:47] LABS: *BILIRUBIN,URIN NEGATIVE (NEGATIVE); *CLARITY,URINE CLEAR (CLEAR); *COLOR,URINE YELLOW (YELLOW); *KETONES,URINE NEGATIVE (NEGATIVE); *UROBILINOGEN,URINE 0.2 E.U./dl (NORMAL); LEUKOCYTE ESTERASE ,URINE NEGATIVE (NEGATIVE); NITRITE, URINE NEGATIVE (NEGATIVE); PH,URINE 7.5 (5.0-8.0); UGLUCOSE NEGATIVE (NEGATIVE)
[2020-04-23] MEDS ORDERED: diphenhydrAMINE 50 MG/1 ML VIAL ONE (20:50)
[2020-04-23] MEDS ORDERED: METOCLOPRAMIDE HCL 10 MG/2 ML VIAL ONE (20:50)
[2020-04-23 20:56] LABS: *BLOOD, URINE TRACE (NEGATIVE)
[2020-04-23 20:57] LABS: RBC,URINE 0-3 /HPF (0-3); SQUAMOUS EPITHELIAL CELL,UR MODERATE /HPF (NONE SEEN); WBC,URINE 0-3 /HPF (0-3)
[2020-04-23] MEDS ORDERED: CARISOPRODOL 350 MG TABLET PO SCH (21:00)
--- NOTE | 2020-04-23 21:24 | NUR ---
Pt. admitted to Telemetry, under care of Dr. Vy Anderson. Diagnosis: Hypokalemia Belongs List completed
--- NOTE | 2020-04-23 21:30 | NUR ---
Admitted a 59 years old, with Dx of Acute Pyelonephritis. Patient AAOx4. In no acute distress. Denies any SOB. Complain of abdominal pain, shoulder and legs. Will provide pain medication per order. IV site on left hand intact and patent. NSR on tele at 76/min. No nausea or vomiting at this time. NPO status. Routine admission care done. Plan of care initiated. Safety measure initiated and call werner within reached.
[2020-04-23] MEDS ORDERED: CEFTRIAXONE 1 G VIAL ONE (21:52)
[2020-04-23] MEDS ORDERED: CEFTRIAXONE 1 G in IV DEXTROSE 5% 50 ML IV ONE (22:00)
[2020-04-23] MEDS ORDERED: TEMAZEPAM 7.5 MG CAPSULE PO ONE (22:15)
[2020-04-23] MEDS: TRIAZOLAM 0.125 MG TABLET PO SCH (22:20)
[2020-04-23] MEDS: ENOXAPARIN SODIUM 40 MG/0.4 ML DISP.SYRIN SQ SCH (22:21)
[2020-04-23 22:36] VITALS: BP 137/88
[2020-04-23] MEDS: IV NS 1000 ML 1,000 ML IV PRN (23:10)
[2020-04-23] MEDS: HYDROMORPHONE 1 MG/1 ML DISP.SYRIN IV PRN (23:14)
[2020-04-24 00:47] VITALS: BP 156/90
[2020-04-24] MEDS: HYDROMORPHONE 1 MG/1 ML DISP.SYRIN IV PRN ×5 (02:58→23:52)
[2020-04-24 05:21] VITALS: BP 144/84
[2020-04-24] MEDS: PANTOPRAZOLE SODIUM 40 MG TABLET.DR PO SCH (06:01)
[2020-04-24 06:07] LABS: BASOPHILS % (AUTO) 0.4 % (0.0-2.0); EOSINOPHILS % (AUTO) 1.5 % (0.0-7.0); HEMATOCRIT 34.7 % (31.2-41.9); HEMOGLOBIN 12.4 g/dL (10.9-14.3); LYMPHOCYTES # (AUTO) 0.7 K/uL (20.0-40.0); MEAN CORPUSCULAR HEMOGLOBIN 37.6 uug (24.7-32.8); MEAN CORPUSCULAR HGB CONC 36 g/dL (32.3-35.6); MEAN CORPUSCULAR VOLUME 105.8 fL (75.5-95.3); MONOCYTES # (AUTO) 0.5 K/uL (2.0-10.0); MONOCYTES % (AUTO) 18.1 % (0.0-11.0); NEUTROPHILS # (AUTO) 1.4 K/uL (1.8-8.9); PLATELET COUNT (AUTO) 98 K/uL (179-408); RED BLOOD CELL COUNT(AUTO) 3.29 MIL/uL (3.63-4.92); WHITE BLOOD COUNT (AUTO) 2.6 K/uL (3.8-11.8)
--- NOTE | 2020-04-24 06:07 | NUR ---
Patient AAOx4. In no acute distress. Denies any SOB. Dilaudid 1mg IV q4 hours PRN given for complain of pain and effective. IV site on left hand intact and patent. IVF infusing. NSR on tele at 63/min. No nausea or vomiting. NPO status. Safety measure maintained and call werner within reached.
[2020-04-24] MEDS ORDERED: CARISOPRODOL 350 MG TABLET PO PRN (06:15)
[2020-04-24 06:21] LABS: MAGNESIUM 1.6 mg/dL (1.8-2.4); PHOSPHOROUS 2.4 mg/dL (2.5-4.9); POTASSIUM 3.6 mmol/L (3.5-5.1)
[2020-04-24 06:28] LABS: THYROID STIMULATING HORMONE 3.979 mIU/mL (0.358-3.740)
--- NOTE | 2020-04-24 07:30 | NUR ---
PATIENT CALM AND COMFORTABLE WITH NO SIGNS OF DISTRESS; PATIENT WITH STABLE VITAL SIGNS ; PATIENT CONTINUE TO BE MONITORED.
[2020-04-24 07:35] LABS: LYMPHOCYTES % (MANUAL) 27 % (20-40); MONOCYTES % (MANUAL) 17 % (2-10); NEUTROPHILS % (MANUAL) 54 % (42-75)
[2020-04-24 07:36] LABS: EOSINOPHILS % (MANUAL) 2 % (0-8)
[2020-04-24] MEDS: ATENOLOL 50 MG TABLET PO SCH (08:37)
[2020-04-24] MEDS: AMLODIPINE 2.5 MG TABLET PO SCH (08:38)
[2020-04-24] MEDS: MULTIVIT, IRON, MIN NO. 8, FA TABLET PO SCH (08:38)
[2020-04-24] MEDS ORDERED: CEFTRIAXONE 1 G in IV DEXTROSE 5% 50 ML IV SCH (09:00)
[2020-04-24] MEDS: MAGNESIUM SULFATE/D5W 100 ML IV SCH ×2 (10:02→11:10)
[2020-04-24 11:35] VITALS: BP 133/85
[2020-04-24] MEDS ORDERED: HYDROMORPHONE 2 MG/1 ML DISP.SYRIN IM ONE (15:00)
[2020-04-24 15:35] VITALS: BP 178/80
[2020-04-24] MEDS: IV NS 1000 ML 1,000 ML IV PRN (15:41)
[2020-04-24] MEDS ORDERED: SODIUM PHOSPHATE MM 15 MMOL in IV NORMAL SALINE 250 ML IV ONE (16:30)
--- NOTE | 2020-04-24 18:48 | NUR ---
PATIENT CALM AND COMFORTABLE THROUGH OUT SHIFT; MEDICATION COMPLIANT WITH STABLE VITAL SIGNS;REPORT GIVEN TO ONCOMING NURSE.
--- NOTE | 2020-04-24 20:03 | NUR ---
Received patient awake and alert in bed, A/Ox4. No signs of acute distress noted. Complaining of pain in the neck, back, BLE. requesting Dilaudid, informed patient that her 2mg dose was a one time dose and patient verbalized understanding. IVF running on the left hand, no s/s of infection or infiltration noted. Safety measures initiated. Bed is low and locked, call light within reach. Will continue to monitor.
[2020-04-24 20:04] VITALS: BP 154/88
[2020-04-24] MEDS: TRIAZOLAM 0.125 MG TABLET PO SCH (21:15)
[2020-04-24] MEDS: ENOXAPARIN SODIUM 40 MG/0.4 ML DISP.SYRIN SQ SCH (21:15)
[2020-04-24] MEDS: CEFTRIAXONE 1 G in IV DEXTROSE 5% 50 ML IV SCH (21:43)
[2020-04-25] VITALS: BP_SYST 115; BP_SYST 135; BP_DIAS 68; BP_DIAS 69
[2020-04-25] MEDS: HYDROMORPHONE 1 MG/1 ML DISP.SYRIN IV PRN ×3 (03:55→12:30)
[2020-04-25 05:03] VITALS: BP 134/78
[2020-04-25] MEDS: PANTOPRAZOLE SODIUM 40 MG TABLET.DR PO SCH (06:36)
[2020-04-25 07:08] LABS: BASOPHILS % (AUTO) 0.6 % (0.0-2.0); EOSINOPHILS # (AUTO) 0.1 K/uL (0.0-0.7); HEMATOCRIT 36.6 % (31.2-41.9); HEMOGLOBIN 12.8 g/dL (10.9-14.3); LYMPHOCYTES # (AUTO) 0.5 K/uL (20.0-40.0); LYMPHOCYTES % (AUTO) 23.2 % (20.5-51.5); MEAN CORPUSCULAR HEMOGLOBIN 37.1 uug (24.7-32.8); MEAN CORPUSCULAR HGB CONC 35 g/dL (32.3-35.6); MEAN CORPUSCULAR VOLUME 106.5 fL (75.5-95.3); MONOCYTES # (AUTO) 0.3 K/uL (2.0-10.0); MONOCYTES % (AUTO) 13.9 % (0.0-11.0); NEUTROPHILS # (AUTO) 1.4 K/uL (1.8-8.9); NEUTROPHILS % (AUTO) 58.3 % (38.5-71.5); PLATELET COUNT (AUTO) 106 K/uL (179-408); RED BLOOD CELL COUNT(AUTO) 3.44 MIL/uL (3.63-4.92); WHITE BLOOD COUNT (AUTO) 2.3 K/uL (3.8-11.8)
[2020-04-25 07:27] LABS: BILIRUBIN,TOTAL 0.7 mg/dL (0.2-1.0); CREATININE 0.8 mg/dL (0.6-1.3); POTASSIUM 3.4 mmol/L (3.5-5.1); TOTAL PROTEIN, SERUM 6.7 g/dL (6.4-8.2)
[2020-04-25 08:33] LABS: BAND % (MANUAL) 1 % (0-10); EOSINOPHILS % (MANUAL) 6 % (0-8); LYMPHOCYTES % (MANUAL) 27 % (20-40); MONOCYTES % (MANUAL) 8 % (2-10); NEUTROPHILS % (MANUAL) 58 % (42-75)
--- NOTE | 2020-04-25 08:38 | NUR ---
PATIENT IS AWAKE ALERT AND ORIENTED REQUESTING FOR HER PAIN MEDICATIONS MEDICATED WITH DILAUDID ORDERED REMAIN ON IVF ORDERED WITH NO S/S OF INFILTERATION ON SITE.CALL LIGHTS AND PERSONAL BELONGINGS ARE WITHIN EASY REACH MADE COMFORTABLE AND WILL CONTINUE TO OBSERVE.
[2020-04-25] MEDS: MULTIVIT, IRON, MIN NO. 8, FA TABLET PO SCH (08:39)
[2020-04-25] MEDS: ATENOLOL 50 MG TABLET PO SCH (08:39)
[2020-04-25] MEDS: THIAMINE HCL 100 MG TABLET PO SCH (08:39)
[2020-04-25] MEDS: AMLODIPINE 2.5 MG TABLET PO SCH (08:40)
[2020-04-25 11:30] VITALS: BP 159/82
[2020-04-25] MEDS: IV NS 1000 ML 1,000 ML IV PRN (11:33)
[2020-04-25] MEDS ORDERED: POTASSIUM CHLORIDE 20 MEQ TAB.PRT.SR PO ONE (12:00)
--- NOTE | 2020-04-25 12:30 | NUR ---
POTASSIUM LEVEL IS 3.4 WITH NEW REPLACEMENT ORDER FROM DR CANO PATIENT C/O POOR APPETITE BUT TOLERATED APPLE SAUCE AND CRACKERS NO NAUSEA OR VOMITING AT THIS TIME
[2020-04-25 15:04] LABS: LIPASE 127 U/L (73-393)
[2020-04-25 16:00] VITALS: BP 162/80
[2020-04-25] MEDS ORDERED: AMLO5TAB4 PO (16:48)
[2020-04-25] MEDS ORDERED: ACID1TAB4 PO (16:48)
[2020-04-25] MEDS: OXYCODONE HCL 5 MG TABLET PO PRN ×2 (17:14→23:16)
--- NOTE | 2020-04-25 17:30 | NUR ---
NOTED DISCHARGE ORDER FROM DR CANO ATTEMPTED TO REACH OUT TO THE CRACKING AND FANNING MACHINE OPERATOR BUT WAS UNABLE TO REACH HER BY PHONE PATIENT IS RESTING AT THIS TIME S/P OXY IR AT 1714 WILL ENDORSE RE DISCHARGE TO THE ONCOMING SHIFT
--- NOTE | 2020-04-25 19:45 | NUR ---
Received patient awake and alert. Patient shows no signs or symptoms of distress noted. Discharge order noted and spoke to patient regarding who will be able to pick her up. Patient reports that she does not have a ride and no one would be able to pick her up at this time because it is such a late notice. Patient also states that she is waiting for Dr. Mcnally to return to speak to her. Will contact Dr. Mcnally. Bed set to lowest position. Call light within reach. Side rails X2 are up. Will continue to monitor patient.
[2020-04-25 20:00] VITALS: BP 142/68
--- NOTE | 2020-04-25 20:20 | NUR ---
Called and spoke to Dr. Mcnally regarding patient's discharge. Dr. Mcnally notified that patient does not have a ride to go home today and is requesting to go home tomorrow. Received verbal okay that patient may stay another night and will be discharged in AM. Patient notified and has no further questions. Will continue to monitor patient.
[2020-04-25] MEDS: LORAZEPAM 2 MG/1 ML VIAL IV PRN (20:23)
[2020-04-25] MEDS: TRIAZOLAM 0.125 MG TABLET PO SCH (21:13)
[2020-04-25] MEDS: ENOXAPARIN SODIUM 40 MG/0.4 ML DISP.SYRIN SQ SCH (21:14)
[2020-04-25] MEDS: CEFTRIAXONE 1 G in IV DEXTROSE 5% 50 ML IV SCH (21:15)
[2020-04-26] MEDS: IV NS 1000 ML 1,000 ML IV PRN (02:12)
[2020-04-26] MEDS: LORAZEPAM 2 MG/1 ML VIAL IV PRN (02:23)
[2020-04-26] MEDS: OXYCODONE HCL 5 MG TABLET PO PRN ×2 (05:16→05:20)
[2020-04-26] MEDS: PANTOPRAZOLE SODIUM 40 MG TABLET.DR PO SCH (06:07)
[2020-04-26 06:25] VITALS: BP 132/75
--- NOTE | 2020-04-26 06:38 | NUR ---
Patient shows no signs or symptoms of distress at this time. Vital signs stable. Call light within reach. Bed set to lowest position. Side rails X2 are up. Will endorse patient to day shift nurse in stable condition.
[2020-04-26 07:21] LABS: CREATININE 0.8 mg/dL (0.6-1.3); POTASSIUM 3.5 mmol/L (3.5-5.1)
--- NOTE | 2020-04-26 08:00 | NUR ---
resting in bed, awake alert and oriented, denies of pain at this time, informed of d/c order, states will take pain med due time and will go home, IV site without any redness/ swelling noted, safety measures maintained, call light within reach
[2020-04-26] MEDS: ATENOLOL 50 MG TABLET PO SCH (08:38)
[2020-04-26] MEDS: THIAMINE HCL 100 MG TABLET PO SCH (08:38)
[2020-04-26] MEDS: AMLODIPINE 2.5 MG TABLET PO SCH (08:39)
[2020-04-26] MEDS: MULTIVIT, IRON, MIN NO. 8, FA TABLET PO SCH (08:39)
[2020-04-26] MEDS ORDERED: OXYCODONE HCL 5 MG TABLET PO ONE (10:30)
--- NOTE | 2020-04-26 10:30 | NUR ---
c/o generalized pain /- medicated with oxyir as ordered. IV site removed- no redness /swelling noted on site, states will wash up and get ready, provided her with top and pants since she claims her clothes are dirty.
[2020-04-26 11:37] VITALS: BP 135/67
--- NOTE | 2020-04-26 12:00 | NUR ---
discharge instructions given-verbalized understanding, hien was called, all belongings with her, pt in stable condition, escorted to lobby
== END 2020-04-26 12:00 | disposition home or self-care (01) ==
LOC: ER 15:55 → TELE3 21:16 → MEDSURG3 04-24 11:45
PROVIDERS: ADMIT Nurse Practitioner Acute Care; ATTEND Internal Medicine
DX: K74.60 Unspecified cirrhosis of liver (principal); E83.39 Other disorders of phosphorus metabolism; G62.9 Polyneuropathy, unspecified; E87.6 Hypokalemia; E83.42 Hypomagnesemia; F32.9 Major depressive disorder, single episode, unspecified; F41.9 Anxiety disorder, unspecified; G89.4 Chronic pain syndrome; Z87.891 Personal history of nicotine dependence; D72.819 Decreased white blood cell count, unspecified; D75.89 Other specified diseases of blood and blood-forming organs; R74.0 Nonspecific elevation of levels of transaminase and lactic acid dehydrogenase [LDH]; F10.239 Alcohol dependence with withdrawal, unspecified; Y90.9 Presence of alcohol in blood, level not specified; F11.23 Opioid dependence with withdrawal; I10 Essential (primary) hypertension; R73.03 Prediabetes; Z86.19 Personal history of other infectious and parasitic diseases; Z79.890 Hormone replacement therapy; F64.0 Transsexualism; V89.2XXS Person injured in unspecified motor-vehicle accident, traffic, sequela
CPT/HCPCS: 36415; 70030-TC; 83690; 83735; 84100; 84443; 85025; 87040; A4663; G0378; J0696; J1170; J1200; J1650; J2060; J2405; J2765; J3475; J3490; J7030; J7050; J7060

== ENCOUNTER 2020-11-08 20:25 | Emergency (ER) | payer OTHER ==
[~2020-11-08] VITALS: Ht 175.3 cm; Wt 69.9 kg
[~2020-11-08 20:25] MED LIST changes: +ACID1TAB4 PO; -AMLO2.5T4 PO; +AMLO5TAB4 PO
[2020-11-08] MEDS ORDERED: ONDANSETRON 4 MG/2 ML VIAL IM ONE (21:00)
[2020-11-08] MEDS ORDERED: HYDROMORPHONE 1 MG/1 ML DISP.SYRIN IM ONE (21:00)
[2020-11-08] MEDS ORDERED: LIDOCAINE HCL 2% 20 ML VIAL TP ONE (21:00)
[2020-11-08] MEDS ORDERED: HYDROMORPHONE 2 MG/1 ML DISP.SYRIN ONE ×2 (21:01→21:08)
[2020-11-08] MEDS ORDERED: LIDOCAINE HCL 2% 20 ML VIAL ONE (21:02)
[2020-11-08] MEDS ORDERED: ONDANSETRON 4 MG/2 ML VIAL ONE (21:02)
--- NOTE | 2020-11-08 21:09 | NUR ---
PHARMACY NOTE: 2mL dilaudid wasted d/t fall to floor. ALTON CARRASCO RN witnessed.
--- NOTE | 2020-11-08 21:10 | NUR ---
pt at bedside, lac tray with 2% lidocane provided, pt medicated for pain.
--- NOTE | 2020-11-08 21:45 | NUR ---
Patient discharged to home in stable condition. Written and verbal after care instructions given. Patient verbalizes understanding of instructions. Stressed follow up or return to ER for worsening s/s. RX x1 given. Patient was ambulating well, took all belongings. D/C by DR. MCKEON.
[2020-11-08 21:52] VITALS: BP 120/60
== END 2020-11-08 21:45 | disposition home or self-care (01) ==
LOC: ER 20:26
DX: S01.111A Laceration without foreign body of right eyelid and periocular area, initial encounter (principal); W01.190A Fall on same level from slipping, tripping and stumbling with subsequent striking against furniture, initial encounter; Y92.032 Bedroom in apartment as the place of occurrence of the external cause; Z88.6 Allergy status to analgesic agent; Z88.8 Allergy status to other drugs, medicaments and biological substances; Z86.19 Personal history of other infectious and parasitic diseases; G89.29 Other chronic pain; R10.9 Unspecified abdominal pain; F32.9 Major depressive disorder, single episode, unspecified; Z87.890 Personal history of sex reassignment
CPT/HCPCS: 12013; 96372 ×2; 99284; J1170 ×2; J2405; J3490; A4663

== ENCOUNTER 2021-07-04 13:32 | Emergency (ER) | payer OTHER ==
[~2021-07-04] VITALS: Ht 175.3 cm; Wt 69.4 kg
[~2021-07-04 13:32] MED LIST changes: -ACID1TAB4 PO; -AMLO5TAB4 PO; -ESTR10VI2 IM; -PREN1TAB81 PO
[2021-07-04] MEDS ORDERED: ACETAMINOPHEN 325 MG TABLET ONE (14:14)
[2021-07-04] MEDS ORDERED: HYDROCODONE/APAP 10-325 MG TABLET ONE (14:15)
[2021-07-04] MEDS ORDERED: ACETAMINOPHEN 325 MG TABLET PO ONE (14:15)
[2021-07-04] MEDS ORDERED: HYDROCODONE/APAP 10-325 MG TABLET PO ONE (14:15)
[2021-07-04] MEDS ORDERED: MORPHINE SULFATE 4 MG/1 ML DISP.SYRIN IV ONE (14:30)
--- NOTE | 2021-07-04 14:35 | NUR ---
PT IS IN ROOM #2B. DR READ EVALUATED THE PT.
[2021-07-04] MEDS ORDERED: MORPHINE SULFATE 4 MG/1 ML DISP.SYRIN ONE (14:50)
[2021-07-04] MEDS ORDERED: HYDR-3980 PO (15:58)
[2021-07-04] MEDS ORDERED: HYDROMORPHONE 1 MG/1 ML DISP.SYRIN IM ONE (16:00)
[2021-07-04] MEDS ORDERED: HYDROMORPHONE 1 MG/1 ML DISP.SYRIN ONE (16:12)
--- NOTE | 2021-07-04 16:49 | NUR ---
Pt was d/c'd to home. D/C instructions given to the pt by dr Reddy.
[2021-07-04 16:50] VITALS: BP 142/78
== END 2021-07-04 16:51 | disposition home or self-care (01) ==
LOC: ER 13:32
DX: S42.291A Other displaced fracture of upper end of right humerus, initial encounter for closed fracture (principal); S52.124A Nondisplaced fracture of head of right radius, initial encounter for closed fracture; W19.XXXA Unspecified fall, initial encounter; Y92.89 Other specified places as the place of occurrence of the external cause; G89.29 Other chronic pain; Z86.19 Personal history of other infectious and parasitic diseases; G62.9 Polyneuropathy, unspecified; Z88.6 Allergy status to analgesic agent
CPT/HCPCS: 29105; 73030; 73060; 73080; 73502; 96372 ×2; 99284; J1170; J2270; A4663

== ENCOUNTER 2021-10-09 21:25 | Emergency (ER) | payer OTHER ==
[~2021-10-09] VITALS: Ht 170.2 cm; Wt 72.6 kg
[~2021-10-09 21:25] MED LIST changes: +HYDR-3980 PO
[2021-10-09] MEDS ORDERED: HYDROMORPHONE 1 MG/1 ML DISP.SYRIN IM ONE (23:30)
[2021-10-09] MEDS ORDERED: ONDANSETRON ODT 4 MG TAB.RAPDIS SL ONE (23:30)
[2021-10-09] MEDS ORDERED: HYDROMORPHONE 1 MG/1 ML DISP.SYRIN ONE (23:47)
[2021-10-09] MEDS ORDERED: ONDANSETRON ODT 4 MG TAB.RAPDIS ONE (23:47)
[2021-10-10] MEDS ORDERED: HYDROMORPHONE 1 MG/1 ML DISP.SYRIN IM ONE (00:45)
[2021-10-10] MEDS ORDERED: HYDROMORPHONE 1 MG/1 ML DISP.SYRIN ONE (00:56)
[2021-10-10] MEDS ORDERED: OXYC-133 PO (00:58)
--- NOTE | 2021-10-10 01:01 | NUR ---
Patient discharged to home in stable condition with friend taking patient home. Written and verbal after care instructions given. Patient verbalizes understanding of instructions. Stressed follow up or return to ER for worsening s/s.
[2021-10-10 01:49] VITALS: BP 135/72
== END 2021-10-10 01:01 | disposition home or self-care (01) ==
LOC: ER 21:26
DX: S49.91XA Unspecified injury of right shoulder and upper arm, initial encounter (principal); W01.0XXA Fall on same level from slipping, tripping and stumbling without subsequent striking against object, initial encounter; Y92.89 Other specified places as the place of occurrence of the external cause; S42.291D Other displaced fracture of upper end of right humerus, subsequent encounter for fracture with routine healing; X58.XXXD Exposure to other specified factors, subsequent encounter; Z88.6 Allergy status to analgesic agent; G89.29 Other chronic pain; R10.9 Unspecified abdominal pain; Z86.19 Personal history of other infectious and parasitic diseases; Z79.899 Other long term (current) drug therapy
CPT/HCPCS: 73020; 96372 ×2; 99284; J1170 ×2; A4663; Q0162

== ENCOUNTER 2021-10-25 12:41 | Emergency (ER) | payer OTHER ==
[~2021-10-25] VITALS: Ht 175.3 cm; Wt 61.2 kg
[~2021-10-25 12:41] MED LIST changes: +OXYC-133 PO
--- NOTE | 2021-10-25 12:54 | NUR ---
DR MARTINEZ AT BEDSIDE FOR MSE.
[2021-10-25] MEDS ORDERED: OXYCODONE/APAP 5-325 MG TABLET PO ONE (13:15)
[2021-10-25] MEDS ORDERED: OXYCODONE/APAP 5-325 MG TABLET ONE (13:26)
--- NOTE | 2021-10-25 13:44 | NUR ---
Patient has been cleared deborah Menchaca. Colle splint applied. Patient discharged to home in stable condition. Written and verbal after care instructions given. Patient verbalizes understanding of instructions. Stressed follow up or return to ER for worsening s/s. Ambulated out of ED in [id number] gait.
[2021-10-25 15:12] VITALS: BP 115/84
== END 2021-10-25 15:12 | disposition home or self-care (01) ==
LOC: ER 12:41
DX: S69.91XA Unspecified injury of right wrist, hand and finger(s), initial encounter (principal); W01.0XXA Fall on same level from slipping, tripping and stumbling without subsequent striking against object, initial encounter; Y92.89 Other specified places as the place of occurrence of the external cause; S00.81XA Abrasion of other part of head, initial encounter; S80.212A Abrasion, left knee, initial encounter; S80.211A Abrasion, right knee, initial encounter; Z88.6 Allergy status to analgesic agent; G89.29 Other chronic pain; G62.9 Polyneuropathy, unspecified; Z86.19 Personal history of other infectious and parasitic diseases; Z79.899 Other long term (current) drug therapy
CPT/HCPCS: 73110; 73130; A4663

== ENCOUNTER 2021-12-23 18:00 | Emergency (ER) | payer OTHER ==
[~2021-12-23] VITALS: Ht 175.3 cm; Wt 60.8 kg
[2021-12-23] MEDS ORDERED: HYDROMORPHONE 1 MG/1 ML DISP.SYRIN IM ONE (19:15)
--- NOTE | 2021-12-23 19:15 | NUR ---
Received thorough report from COOPER Miller RN. Pt recently came in for pain in Lt ankle s/p ground level trip and fall, no LOC, no head injury. at bedside pt is aaox4 with good color and appearance, VSS, no major med issues. Patiently awaiting xr to result. Pt given one ice pack and medicated for pain 06/19, 1mg dilaudid IM without difficulty.
--- NOTE | 2021-12-23 19:20 | NUR ---
Pt complaining of severe pain in Lt foot states "it is a 10/" s/p an injury she sustained the previous evening. Pt said that she had to walk her dog this morning and walked on the injured leg. I informed her that that is probably why there is so much pain bc she prob exacerbated her injury when she walked her dog. 1mg of dilaudid ordered per EDMD. I promptly administered the pain meds via IM injection. Gave pt ice pack and elevated injured leg is a pillow. Pt states feeling much better.
--- NOTE | 2021-12-23 19:25 | NUR ---
Pt is patiently awaiting results from radiology and is anxious to be DCed home. EDMD is constantly checking to see if xr was resulted.
[2021-12-23] MEDS ORDERED: HYDROMORPHONE 1 MG/1 ML DISP.SYRIN ONE (19:56)
--- NOTE | 2021-12-23 20:00 | NUR ---
EDMD ordered clara wrap to left ankle and foot plus a post op shoe then DC home.
--- NOTE | 2021-12-23 20:15 | NUR ---
Pts left foot wrapped with 4 in clara wrap taking great care to make sure its not wrapped too tight. Pt informed about elasticity of clara and that she needs to watch out for and be cognizant of constriction due to wrapping too tight. Pt confirmed understanding. Pt has good CMS before and after application. cap refil <3sec.
--- NOTE | 2021-12-23 20:20 | NUR ---
post op shoe sized and applied to Lt foot. SHoe fits properly and pt confirms comfort. Injured metatarsals are well protected by shoe.
--- NOTE | 2021-12-23 20:30 | NUR ---
Pt given Dc instructions and confirmed understanding of aftercare. VSS, PE wnl. Pt denies any sob, dizziness or n/v. pt ambulated out of dept with steady gait. No s/sx of distress present.
[2021-12-23 22:41] VITALS: BP 128/72
== END 2021-12-23 20:30 | disposition home or self-care (01) ==
LOC: ER 18:04
DX: S99.922A Unspecified injury of left foot, initial encounter (principal); W01.0XXA Fall on same level from slipping, tripping and stumbling without subsequent striking against object, initial encounter; Y92.89 Other specified places as the place of occurrence of the external cause; Z88.6 Allergy status to analgesic agent; G89.29 Other chronic pain; R03.0 Elevated blood-pressure reading, without diagnosis of hypertension
CPT/HCPCS: 73630; 96372; 99283; J1170; A4663

== ENCOUNTER 2022-04-15 23:32 | Emergency (ER) | payer OTHER ==
[~2022-04-15] VITALS: Ht 177.8 cm; Wt 54.4 kg
--- NOTE | 2022-04-16 00:10 | NUR ---
pt in room 3 for c/o n/v.
--- NOTE | 2022-04-16 00:26 | NUR ---
Dr. Vega at bedside for MSE.
[2022-04-16] MEDS ORDERED: IV NS 1000 ML 1,000 ML IV ONE (00:30)
[2022-04-16] MEDS ORDERED: HYDROMORPHONE 1 MG/1 ML DISP.SYRIN IV ONE ×3 (00:30→05:30)
[2022-04-16] MEDS ORDERED: PROCHLORPERAZINE EDISYLATE 10 MG/2 ML VIAL IV ONE (00:30)
[2022-04-16 00:46] LABS: HEMATOCRIT 43.8 % (31.2-41.9); MEAN CORPUSCULAR HEMOGLOBIN 36.1 uug (24.7-32.8); MEAN CORPUSCULAR VOLUME 98.6 fL (75.5-95.3); PLATELET COUNT (AUTO) 161 K/uL (179-408)
[2022-04-16 00:57] LABS: CREATININE 0.5 mg/dL (0.6-1.3); POTASSIUM 3.3 mmol/L (3.5-5.1)
[2022-04-16 00:58] LABS: NEUTROPHILS % (MANUAL) 0 % (42-75)
[2022-04-16 01:02] LABS: BILIRUBIN,DIRECT 0.2 mg/dL (0.0-0.2); BILIRUBIN,TOTAL 0.6 mg/dL (0.2-1.0)
[2022-04-16] MEDS ORDERED: PROCHLORPERAZINE EDISYLATE 10 MG/2 ML VIAL ONE (01:07)
[2022-04-16] MEDS ORDERED: HYDROMORPHONE 1 MG/1 ML DISP.SYRIN ONE ×3 (01:07→05:40)
[2022-04-16] MEDS ORDERED: POTASSIUM CHLORIDE 200 ML ONE (01:31)
[2022-04-16] MEDS ORDERED: MAGNESIUM SULFATE/D5W 200 ML ONE (01:31)
--- NOTE | 2022-04-16 01:34 | NUR ---
pt is a difficult iv start iv was placed to right fa by Terry charge nurse iv infiltrated and will not work will need to locate another iv site.
[2022-04-16] MEDS ORDERED: IV NORMAL SALINE 250 ML IV ONE (02:07)
[2022-04-16] MEDS ORDERED: SWABABLE VALVE TRANSFER SET EA MC ONE (02:07)
[2022-04-16] MEDS ORDERED: IOHEXOL 300MG/ML 100 ML INFUS..BTL ONE (02:07)
--- NOTE | 2022-04-16 02:19 | NUR ---
pt taken for cat scan.
--- NOTE | 2022-04-16 02:39 | NUR ---
pt returned from cat scan.
[2022-04-16] MEDS: POTASSIUM CHLORIDE 50 ML IV SCH ×4 (02:59→05:52)
[2022-04-16] MEDS ORDERED: PROC10TA29 PO (04:02)
[2022-04-16] MEDS ORDERED: OXYC-128 PO (04:02)
[2022-04-16] MEDS: MAGNESIUM SULFATE/D5W 100 ML IV SCH ×2 (05:29→05:49)
[2022-04-16] MEDS ORDERED: POTASSIUM BICARBONATE/CIT AC 25 MEQ TABLET.EFF PO ONE (05:30)
[2022-04-16] MEDS ORDERED: POTASSIUM BICARBONATE/CIT AC 25 MEQ TABLET.EFF ONE (05:40)
--- NOTE | 2022-04-16 05:52 | NUR ---
pt received iv 20meq kcl and received po kcl. the additional 20 kcl was cancel by
[2022-04-16 06:29] VITALS: BP 120/82
== END 2022-04-16 06:33 | disposition home or self-care (01) ==
LOC: ER 23:35
DX: R19.7 Diarrhea, unspecified (principal); E87.6 Hypokalemia; E83.42 Hypomagnesemia; K76.0 Fatty (change of) liver, not elsewhere classified; M25.50 Pain in unspecified joint; R11.0 Nausea; E46 Unspecified protein-calorie malnutrition; Z68.1 Body mass index [BMI] 19.9 or less, adult; Z87.891 Personal history of nicotine dependence; Z88.6 Allergy status to analgesic agent; Z87.890 Personal history of sex reassignment; Z86.19 Personal history of other infectious and parasitic diseases
CPT/HCPCS: 36415; 74178; 80048; 80076; 83735; 85007; 85025; 96361; 96365; 96375; 96376; 99285; J0780; J1170 ×3; J3475; J3480; J7040; Q9967; 70030-TC; A4663

== ENCOUNTER 2022-11-05 21:41 | Emergency (ER) | payer OTHER ==
[~2022-11-05] VITALS: Ht 175.3 cm; Wt 68.0 kg
[~2022-11-05 21:41] MED LIST changes: +OXYC-128 PO; +PROC10TA29 PO
--- NOTE | 2022-11-05 21:55 | NUR ---
After being triaged, patient was placed back in the waiting room due to no beds avialable in the ER.
--- NOTE | 2022-11-05 23:45 | NUR ---
Patient was called to be placed in room but was not present in the waiting room or outside of ER.
--- NOTE | 2022-11-06 00:30 | NUR ---
Patient was called to be placed in room but was not present in the waiting room or outside of ER.
--- NOTE | 2022-11-06 01:00 | NUR ---
Patient was called to be placed in room but was not present. PATIENT WAS TRIAGED BUT LEFT BEFORE BEING DISCHARGED.
[2022-11-06] MEDS ORDERED: NAPR-1009 PO (17:04)
== END 2022-11-06 01:00 | disposition left against medical advice (07) ==
LOC: ER 21:41
DX: M25.571 Pain in right ankle and joints of right foot (principal)
CPT/HCPCS: 73610

== ENCOUNTER 2022-11-06 15:42 | Emergency (ER) | payer OTHER ==
[~2022-11-06] VITALS: Ht 177.8 cm; Wt 54.4 kg
[2022-11-06] MEDS ORDERED: NAPR-1009 PO (17:04)
== END 2022-11-06 17:12 | disposition home or self-care (01) ==
LOC: ER 15:42
DX: M25.571 Pain in right ankle and joints of right foot (principal); G62.9 Polyneuropathy, unspecified; Z87.891 Personal history of nicotine dependence; Z88.6 Allergy status to analgesic agent; G89.29 Other chronic pain; R10.9 Unspecified abdominal pain; Z86.19 Personal history of other infectious and parasitic diseases
CPT/HCPCS: A4663

== ENCOUNTER 2022-11-23 21:44 | Emergency (ER) | payer OTHER ==
[~2022-11-23] VITALS: Ht 175.3 cm; Wt 63.5 kg
[~2022-11-23 21:44] MED LIST changes: +NAPR-1009 PO
--- NOTE | 2022-11-23 22:10 | NUR ---
Patient to room #2A from home with c/o right ankle pain , diarrhea with nausea and vomiting x 3 days. patient is a/o x4, with no s/s of any distress noted, c/o 10/10 pain to ankle area, informed of plan of care awaiting MD exam. #20g established to right hand, blood collected and sent to lab.
[2022-11-23 22:43] LABS: HEMATOCRIT 40.6 % (31.2-41.9); MEAN CORPUSCULAR HEMOGLOBIN 35.7 uug (24.7-32.8); PLATELET COUNT (AUTO) 232 K/uL (179-408)
[2022-11-23] MEDS ORDERED: CLONIDINE HCL 0.1 MG TABLET PO ONE (22:45)
[2022-11-23] MEDS ORDERED: HYDROMORPHONE 1 MG/1 ML DISP.SYRIN IM ONE (22:45)
[2022-11-23] MEDS ORDERED: PROCHLORPERAZINE MALEATE 5 MG TABLET PO ONE (22:45)
[2022-11-23 22:46] LABS: CREATININE 0.6 mg/dL (0.6-1.3); POTASSIUM 3.5 mmol/L (3.5-5.1)
[2022-11-23 22:49] LABS: NEUTROPHILS % (MANUAL) 0 % (42-75)
[2022-11-23] MEDS ORDERED: CLONIDINE HCL 0.1 MG TABLET ONE (22:56)
[2022-11-23] MEDS ORDERED: PROCHLORPERAZINE MALEATE 5 MG TABLET ONE (22:56)
[2022-11-23] MEDS ORDERED: HYDROMORPHONE 2 MG/1 ML DISP.SYRIN ONE ×2 (22:57→23:55)
[2022-11-23] MEDS ORDERED: IV NS 1000 ML 1,000 ML IV ONE (23:00)
--- NOTE | 2022-11-23 23:05 | NUR ---
patient sitting at bedside with caregiver, medicated as per order at this time.
[2022-11-23] MEDS ORDERED: HYDROMORPHONE 1 MG/1 ML DISP.SYRIN IV ONE (23:45)
[2022-11-23] MEDS ORDERED: MAGNESIUM SULFATE/D5W 100 ML ONE (23:55)
[2022-11-23] MEDS: MAGNESIUM SULFATE/D5W 100 ML IV SCH (23:59)
--- NOTE | 2022-11-24 00:06 | NUR ---
Continues to sit up at bedside, spoke with ER MD, patient wants to leave. Patient agreeded to take mag and normal saline. c/opain has been medicated as per order at this time.
[2022-11-24] MEDS ORDERED: MAGNESIUM SULFATE/D5W 100 ML ONE (01:00)
[2022-11-24] MEDS ORDERED: PROC10TA29 PO (01:15)
--- NOTE | 2022-11-24 01:47 | NUR ---
IVF CONTINUES PER ORDER, CARE-RURAL SOCIOLOGIST REMAINS AT BEDSIDE.
[2022-11-24] MEDS: MAGNESIUM SULFATE/D5W 100 ML IV SCH (02:30)
[2022-11-24] MEDS ORDERED: HYDROMORPHONE 1 MG/1 ML DISP.SYRIN ONE (03:41)
[2022-11-24] MEDS ORDERED: HYDROMORPHONE 1 MG/1 ML DISP.SYRIN IV ONE (03:45)
--- NOTE | 2022-11-24 03:53 | NUR ---
AMA FORM SIGNED, SALINE LOCK REMOVED, REMAINS STABLE FOR DISCHARGE HOME, COPY OF LAB GIVEN.
[2022-11-24 03:56] VITALS: BP 141/89
== END 2022-11-24 03:58 | disposition left against medical advice (07) ==
LOC: ER 21:44
DX: M76.61 Achilles tendinitis, right leg (principal); E87.1 Hypo-osmolality and hyponatremia; E83.42 Hypomagnesemia; R19.7 Diarrhea, unspecified; R11.0 Nausea; G89.29 Other chronic pain; G62.9 Polyneuropathy, unspecified; Z41.1 Encounter for cosmetic surgery; Z87.890 Personal history of sex reassignment; Z88.6 Allergy status to analgesic agent
CPT/HCPCS: 99284; 96365; 96375; 80048; 83735; 85025; 36415; 96372; 96366; 96376; 85007; J3475 ×2; J1170 ×3; J7040; J8499; 70030-TC

== ENCOUNTER 2023-02-03 15:40 | Inpatient (IN) | payer OTHER ==
[~2023-02-03] VITALS: Ht 170.2 cm; Wt 70.3 kg
[2023-02-03] MEDS ORDERED: ONDANSETRON 4 MG/2 ML VIAL IV ONE ×2 (15:45→18:45)
--- NOTE | 2023-02-03 15:57 | NUR ---
PT IS IN ROOM #2A. DR CARTER EVALUATED THE PT.
[2023-02-03 16:01] LABS: HEMATOCRIT 45.4 % (31.2-41.9); MEAN CORPUSCULAR VOLUME 93.4 fL (75.5-95.3); PLATELET COUNT (AUTO) 282 K/uL (179-408)
[2023-02-03] MEDS ORDERED: ONDANSETRON 4 MG/2 ML VIAL ONE ×2 (16:09→18:44)
[2023-02-03 16:21] LABS: ALANINE AMINOTRANSFERASE 20 U/L (14-59); ALKALINE PHOSPHATASE 154 U/L (50-136); ASPARTATE AMINOTRANSFERASE 20 U/L (15-37); BILIRUBIN,DIRECT 0.3 mg/dL (0.0-0.2); BILIRUBIN,TOTAL 0.8 mg/dL (0.2-1.0); CARBON DIOXIDE 27 mmol/L (21-32); CHLORIDE 85 mmol/L (98-107); CREATININE 0.6 mg/dL (0.6-1.3); GLUCOSE 125 mg/dL (74-106); LIPASE 34 U/L (73-393); POTASSIUM 3.2 mmol/L (3.5-5.1); TOTAL PROTEIN, SERUM 8.1 g/dL (6.4-8.2); UREA NITROGEN, BLOOD 4 mg/dL (7-18)
[2023-02-03] MEDS ORDERED: CYCLOBENZAPRINE HCL 10 MG TABLET PO ONE (16:30)
[2023-02-03] MEDS ORDERED: ACETAMINOPHEN 325 MG TABLET PO ONE (16:30)
[2023-02-03] MEDS ORDERED: IV NORMAL SALINE 1000 ML BAG IV ONE (16:30)
[2023-02-03] MEDS ORDERED: MIRT-93 PO (16:35)
[2023-02-03] MEDS ORDERED: ONDA4TAB5 PO (16:44)
[2023-02-03] MEDS ORDERED: POTASSIUM CHLORIDE 20 MEQ TAB.PRT.SR PO ONE (16:45)
--- NOTE | 2023-02-03 17:48 | NUR ---
DR CARTER TALKED TO DR ALVARES.
[2023-02-03 18:33] LABS: *BLOOD, URINE NEGATIVE (NEGATIVE); *CLARITY,URINE CLEAR (CLEAR); *COLOR,URINE YELLOW (YELLOW); *KETONES,URINE NEGATIVE (NEGATIVE); *UROBILINOGEN,URINE 0.2 E.U./dl (NORMAL); LEUKOCYTE ESTERASE ,URINE NEGATIVE (NEGATIVE); NITRITE, URINE NEGATIVE (NEGATIVE); PH,URINE 8.5 (5.0-8.0); UGLUCOSE NEGATIVE (NEGATIVE)
[2023-02-03 18:34] LABS: *BILIRUBIN,URIN 1+ (NEGATIVE)
[2023-02-03] MEDS ORDERED: FENTANYL CITRATE 100 MCG/2 ML AMPUL ONE (18:44)
[2023-02-03] MEDS ORDERED: FENTANYL CITRATE 100 MCG/2 ML AMPUL IV ONE (18:45)
[2023-02-03] MEDS ORDERED: CEFTRIAXONE /D5W 50ML IVPB **ER PYXIS IV ONE (18:45)
[2023-02-03] MEDS ORDERED: CEFTRIAXONE 1 G in IV DEXTROSE 5% 50 ML IV ONE (18:45)
[2023-02-03] MEDS ORDERED: METRONIDAZOLE 500 MG/NS 100 ML PIGGYBACK IV ONE (18:45)
[2023-02-03] MEDS ORDERED: METRONIDAZOLE 500 MG/NS 100ML 100 ML IV ONE (19:34)
--- NOTE | 2023-02-03 20:19 | NUR ---
CALLED 3RD FLOOR FOR TELE BED. WILL CALL ME BACK FOR BED ASSIGNMENT
--- NOTE | 2023-02-03 20:55 | NUR ---
PATIENT ASSIGNED TO ROOM 314 - TELE
--- NOTE | 2023-02-03 21:26 | NUR ---
REPORT GIVEN TO ANUP VARGAS TELE
--- NOTE | 2023-02-03 21:40 | NUR ---
Pt. admitted to tele ROOM 314 , under care of Dr. DAVIDA EGAN Belongs List completed PATIENT TRANSFERED IN STABLE CONDITION
[2023-02-03 21:58] VITALS: BP 159/94
[2023-02-03] MEDS: HYDROMORPHONE 1 MG/1 ML DISP.SYRIN IV PRN (22:28)
[2023-02-03] MEDS ORDERED: POTASSIUM CHLORIDE 20 MEQ in IV NS 1000 ML 1,000 ML IV PRN (22:45)
[2023-02-03] MEDS ORDERED: HYDROMORPHONE 1 MG/1 ML DISP.SYRIN IV PRN (22:45)
[2023-02-03] MEDS ORDERED: ONDANSETRON 4 MG/2 ML VIAL IV PRN (22:45)
[2023-02-03] MEDS ORDERED: REMEDY ESSENTIAL ZINC PASTE 113 GM TP PRN (22:45)
[2023-02-04] MEDS: ENOXAPARIN SODIUM 40 MG/0.4 ML DISP.SYRIN SQ SCH ×2 (01:12→20:28)
[2023-02-04] MEDS ORDERED: PIPERACILLIN SODIUM/TAZO 3.375 GM VIAL ONE (02:04)
[2023-02-04] MEDS: HYDROMORPHONE 1 MG/1 ML DISP.SYRIN IV PRN ×6 (02:39→23:59)
[2023-02-04 04:00] VITALS: BP 148/89
--- NOTE | 2023-02-04 05:45 | NUR ---
Patient admitted to ER for abdominal pain, vomiting and diarrhea. Patient arrived on MS unit from ER on accompanied by transporter on a wheelchair. Patient AAOX4, patient is cooperative but very demanding when it comes to her pain medication. Patient skin is intact, no acute respiratory observed. He tolerated well his meds, IV site is paten, dry and free of pain. She agree to do the admission interview. Despite the pain med administered, she only slept for a few hours and then wake up awaiting for her next dose. However, no behavior issues observed. Will continue to monitor patient for safety.
[2023-02-04] MEDS: PIPERACILLIN SODIUM/TAZOBACTAM 3.375 G in IV DEXTROSE 5% 50 ML IV SCH ×3 (06:58)
[2023-02-04 07:12] LABS: HEMATOCRIT 44.1 % (31.2-41.9); MEAN CORPUSCULAR HEMOGLOBIN 32.9 uug (24.7-32.8); MEAN CORPUSCULAR VOLUME 94.7 fL (75.5-95.3); PLATELET COUNT (AUTO) 224 K/uL (179-408)
[2023-02-04 07:53] LABS: CREATININE 0.7 mg/dL (0.6-1.3); MAGNESIUM 1.3 mg/dL (1.8-2.4); PHOSPHOROUS 3.9 mg/dL (2.5-4.9); POTASSIUM 3.4 mmol/L (3.5-5.1)
[2023-02-04] MEDS: MAGNESIUM SULFATE/D5W 100 ML IV SCH ×4 (08:40→12:20)
[2023-02-04] MEDS: PANTOPRAZOLE SODIUM 40 MG VIAL IV SCH (08:48)
--- NOTE | 2023-02-04 09:35 | NUR ---
Rcvd pt. AA0X4. No SOB or any respiratory distress. No c/o of dizziness and diarrhea at the moment. Pt. ambulatory. NPO at the moment. Seen by the cubing machine tender and GI doctor, awaiting for further orders. Pt. Verbalizes pain but vital signs wnl. Explain pt about the pain management. Will give pain medication as ordered.
[2023-02-04 11:29] VITALS: BP 174/93
[2023-02-04] MEDS ORDERED: PIPERACILLIN SODIUM/TAZOBACTAM 3.375 G in IV DEXTROSE 5% 50 ML IV SCH (12:00)
[2023-02-04] MEDS: POTASSIUM CHLORIDE 50 ML IV SCH ×3 (13:00→14:00)
[2023-02-04] MEDS: POTASSIUM CHLORIDE 10 MEQ, LIDOCAINE-MPF 1% 1 ML in IV DEXTROSE 5% 100 ML IV SCH ×3 (15:11→17:00)
[2023-02-04 16:00] VITALS: BP 169/96
[2023-02-04] MEDS ORDERED: ALPR2TAB7 PO (17:44)
[2023-02-04] MEDS ORDERED: LIPA1CAP34 PO (17:45)
[2023-02-04] MEDS ORDERED: OMEP40CA21 PO (17:47)
[2023-02-04] MEDS ORDERED: POTASSIUM CHLORIDE 20 MEQ TAB.PRT.SR PO ONE (18:15)
[2023-02-04] MEDS: PIPERACILLIN SODIUM/TAZOBACTAM 3.375 G in IV DEXTROSE 5% 100 ML IV SCH ×2 (18:26→23:32)
[2023-02-04 20:00] VITALS: BP 199/102
--- NOTE | 2023-02-04 20:00 | NUR ---
Received patient lying in bed. AAOx4. In no acute distress. Denies any SOB. Complain of back pain, will provide pain medication per order. IV site on left FA intact and patent. NSR on tele with HR of 71/min. Needs assessed and attended to. Safety measure initiated and call light within reached.
[2023-02-04] MEDS: ACETAMINOPHEN 325 MG TABLET PO PRN (20:29)
[2023-02-04 20:37] VITALS: BP 178/64
[2023-02-04] MEDS ORDERED: MIRTAZAPINE 15 MG TABLET PO SCH ×2 (21:00)
--- NOTE | 2023-02-04 21:00 | NUR ---
Informed Dr Dela Cruz, pt Bp was 199/102 taken at 1999. Retook BP at this time and was 178/64. Dr. Dela Cruz with order to start Apresoline IV PRN form SBP greater than 150. Order noted and will carry out order.
[2023-02-04] MEDS: AMLODIPINE 5 MG TABLET PO SCH (21:08)
[2023-02-04 22:33] VITALS: BP 191/95
--- NOTE | 2023-02-04 22:34 | NUR ---
Patient was given Norvasc at 2108 per MD order. Recheck BP and still up to 191/95, HR 65. Will provide Apresoline per order.
[2023-02-04] MEDS: hydrALAZINE HCL 25 MG TABLET PO PRN (22:36)
--- NOTE | 2023-02-05 | NUR ---
Noted left FA IV site leaking. Placed new Iv on right wrist #22G.
[2023-02-05 00:40] VITALS: BP 136/82
[2023-02-05] MEDS: HYDROMORPHONE 1 MG/1 ML DISP.SYRIN IV PRN ×5 (04:00→20:22)
[2023-02-05 05:14] VITALS: BP 169/87
[2023-02-05] MEDS: PIPERACILLIN SODIUM/TAZOBACTAM 3.375 G in IV DEXTROSE 5% 100 ML IV SCH ×3 (05:15→22:13)
[2023-02-05] MEDS: hydrALAZINE HCL 25 MG TABLET PO PRN ×2 (05:18→16:28)
--- NOTE | 2023-02-05 05:55 | NUR ---
No adverse reaction noted from IV antibiotic. Dilaudid 1mg via IV given for complain of back pain and effective. NSR on tele with HR of 75/min. Needs attended to and met. Safety measure maintained and call light within reached.
[2023-02-05 06:40] VITALS: BP 140/75
--- NOTE | 2023-02-05 08:00 | NUR ---
AWAKE ALERT AND ORIENTED X3 ON RA SATURATING 99%. PATIENT SAID HAD 1 EPISODE OF LOOSE STOOL WILL START ON CLEAR LIQUID TOLERATED. PATIENT DENIES SOB EXCEPT ON AND OFF SEVERE BACK PAIN CONTINUE WITH DILAUDID FOR PAIN MANAGEMENT. SR ON MONITOR
[2023-02-05] MEDS: PANTOPRAZOLE SODIUM 40 MG VIAL IV SCH (08:31)
[2023-02-05] MEDS: AMLODIPINE 5 MG TABLET PO SCH (08:32)
--- NOTE | 2023-02-05 10:00 | NUR ---
SEEN BY DR ALBARRAN FOR FOLLOW-UP SAID OK TO DC TELEMETRY. SEE NOTES
[2023-02-05] MEDS: LOSARTAN POTASSIUM 50 MG TABLET PO SCH (10:33)
[2023-02-05 11:42] VITALS: BP 137/81
--- NOTE | 2023-02-05 13:16 | NUR ---
CONTINUE WITH PAIN MANAGEMENT FOR LOWER BACK PAIN. RELIEVED WITH DILAUDID 1MG IVP.
[2023-02-05 15:43] VITALS: BP 152/74
--- NOTE | 2023-02-05 18:42 | NUR ---
PATIENT TOLERATING DIET STARTED. STOOL FOR C-DIFF SENT. CONTINUE WITH PAIN MANAGEMENT
[2023-02-05 20:00] VITALS: BP 167/80
[2023-02-05] MEDS: AMLODIPINE 10 MG TABLET PO SCH (20:08)
[2023-02-05] MEDS: ENOXAPARIN SODIUM 40 MG/0.4 ML DISP.SYRIN SQ SCH (20:09)
[2023-02-05] MEDS: ACETAMINOPHEN 325 MG TABLET PO PRN (20:21)
[2023-02-06] MEDS: HYDROMORPHONE 1 MG/1 ML DISP.SYRIN IV PRN ×6 (00:29→20:44)
[2023-02-06 03:59] VITALS: BP 167/84
[2023-02-06] MEDS: hydrALAZINE HCL 25 MG TABLET PO PRN (04:06)
[2023-02-06] MEDS: ACETAMINOPHEN 325 MG TABLET PO PRN (04:10)
[2023-02-06] MEDS: PIPERACILLIN SODIUM/TAZOBACTAM 3.375 G in IV DEXTROSE 5% 100 ML IV SCH ×3 (05:37→22:07)
[2023-02-06 07:05] LABS: HEMATOCRIT 45.2 % (31.2-41.9); MEAN CORPUSCULAR HEMOGLOBIN 32.7 uug (24.7-32.8); MEAN CORPUSCULAR VOLUME 97.2 fL (75.5-95.3); PLATELET COUNT (AUTO) 213 K/uL (179-408)
[2023-02-06 07:30] LABS: BILIRUBIN,TOTAL 0.5 mg/dL (0.2-1.0); CREATININE 0.6 mg/dL (0.6-1.3); MAGNESIUM 1.9 mg/dL (1.8-2.4); PHOSPHOROUS 4.2 mg/dL (2.5-4.9); POTASSIUM 4.1 mmol/L (3.5-5.1); TOTAL PROTEIN, SERUM 7.6 g/dL (6.4-8.2)
[2023-02-06] MEDS: PANTOPRAZOLE SODIUM 40 MG VIAL IV SCH (08:28)
[2023-02-06] MEDS: LOSARTAN POTASSIUM 50 MG TABLET PO SCH (08:29)
[2023-02-06] MEDS: hydrALAZINE HCL 50 MG TABLET PO SCH ×3 (08:31→22:07)
[2023-02-06 11:09] VITALS: BP 131/72
--- NOTE | 2023-02-06 13:26 | NUR ---
CONTINUE WITH PAIN MANAGEMENT FOR LOWER BACK PAIN.
[2023-02-06 15:28] VITALS: BP 117/70
[2023-02-06 20:00] VITALS: BP 136/77
[2023-02-06] MEDS: AMLODIPINE 10 MG TABLET PO SCH (20:41)
[2023-02-06] MEDS: ENOXAPARIN SODIUM 40 MG/0.4 ML DISP.SYRIN SQ SCH (20:43)
[2023-02-07] MEDS: HYDROMORPHONE 1 MG/1 ML DISP.SYRIN IV PRN ×6 (01:02→21:02)
[2023-02-07 03:37] VITALS: BP 105/65
[2023-02-07] MEDS: PIPERACILLIN SODIUM/TAZOBACTAM 3.375 G in IV DEXTROSE 5% 100 ML IV SCH ×3 (05:05→21:05)
[2023-02-07] MEDS: hydrALAZINE HCL 50 MG TABLET PO SCH ×3 (05:29→21:04)
--- NOTE | 2023-02-07 07:30 | NUR ---
NIGHT NURSE REPORT TO RN: 1) TOP TO BOTTOM: Received awake and lying in bed comfortably watching TV. No sign of distress or discomfort observed - good skin color. 2) BREATHING: On RA - no sign of SOB, Cynosis, or labored breathing 3) INFECTION CONTROL: Has x2 iv access as follows: (i) SUZETTE Midline (ii) RFA Peripheral line (iii) Clean, dry, patent, no sign of infection or inflammation observed 4) SKIN INTEGRITY: S kin intact 5) EATING & DRINKING: Has poor appetite since admission, however, never eat breakfast at home. 6) MOBILITY:Uses a waker or cane - has non in the room, will let physio know. 7) HYGIENE: Self - caring 8) TOILETING: Continent 9) MAINTAINING SAFE ENVIRONMENT: (i) Has non-slip sock, bed low level, call werner within reach, floor clear of clutters. (ii) Patient AOx4 10) COMMUNICATION: Speaks Urdu - no barrier 11) PLAN: (i) safety (ii) pain management (iii) continue to assess, plan, implement, and evaluate care accordingly
[2023-02-07 08:00] VITALS: BP 119/70
[2023-02-07] MEDS: PANTOPRAZOLE SODIUM 40 MG VIAL IV SCH (08:46)
--- NOTE | 2023-02-07 08:46 | NUR ---
PAIN MANAGEMENT: 1) Dilaudid administered as prescribed. 2) Pain score 10/10 3) Sharp and burning 4) Site: (i) lower back (ii) R knee
[2023-02-07] MEDS: LOSARTAN POTASSIUM 50 MG TABLET PO SCH (08:47)
--- NOTE | 2023-02-07 09:15 | NUR ---
Offered build up - refused stated that it makes her sick
--- NOTE | 2023-02-07 10:15 | NUR ---
1) Called and asked for new and clean blankets. 2) Offered two blankets - and bed made for patient. 3) Offered fluids - drinks - refused.
[2023-02-07 12:00] VITALS: BP 120/58
--- NOTE | 2023-02-07 12:55 | NUR ---
1) Dilaudid administered as prescribed - next dose due at 16:55hrs 2) Awaiting effect of medication
[2023-02-07] MEDS: DRONABINOL 2.5 MG CAPSULE PO SCH ×2 (13:07→16:50)
--- NOTE | 2023-02-07 14:44 | NUR ---
1) Didn't eat much this afternoon. 2) Started on Marinol - to increase appetite
[2023-02-07 16:00] VITALS: BP 104/60
--- NOTE | 2023-02-07 17:17 | NUR ---
Pain med administered as prescribed - await effect of medication
--- NOTE | 2023-02-07 17:25 | NUR ---
Asked for toiletries and provided as follows: 1) Tooth paste 2) mouth wash 3) shaving machine 4) Shaving foam 5) Roll on 6) Tooth brush 7) shampoo Offered assistance to freshen up - patient declined.
--- NOTE | 2023-02-07 18:40 | NUR ---
1) No change in condition, patient watching tv at the time of this report. 2) Patient seem comfortable, no non verbal sign of pain, sob, distress or cyanosis 3) Will endorse care to night staff, who will care for patient accordingly.
[2023-02-07 20:07] VITALS: BP 120/61
[2023-02-07] MEDS: AMLODIPINE 10 MG TABLET PO SCH (20:47)
[2023-02-07] MEDS: ENOXAPARIN SODIUM 40 MG/0.4 ML DISP.SYRIN SQ SCH (20:49)
[2023-02-08] VITALS (7 sets, daily range): BP systolic 91–130; BP diastolic 52–75
[2023-02-08] MEDS: HYDROMORPHONE 1 MG/1 ML DISP.SYRIN IV PRN ×2 (01:13→04:54)
[2023-02-08] MEDS: PIPERACILLIN SODIUM/TAZOBACTAM 3.375 G in IV DEXTROSE 5% 100 ML IV SCH (05:22)
--- NOTE | 2023-02-08 06:28 | NUR ---
SHIFT NOTE: RECEIVED PATIENT AT START OF SHIFT ALERT AND ORIENTED X4 PT WAS GIVEN LAST DOSE OF PAIN AT [facility] 0457 FOR ABDOMINAL PAIN. PT CHECKED IN 30 MINUTES FOR PAIN PT SLEEPING. NO SIGNS OF RESPIRATORY DISTRESS NOTED. WILL CONTINUE TO MONITOR AND OTHER PAIN MEDICATION GIVEN ORDERED NO SIGNS OF ADVERSE REACTION NOTED. FALL AND SAFETY MAINTAINED. WILL ENDORSE TO AM NURSE.
[2023-02-08] MEDS: hydrALAZINE HCL 50 MG TABLET PO SCH (06:58)
[2023-02-08] MEDS: PANTOPRAZOLE SODIUM 40 MG TABLET.DR PO SCH (06:58)
[2023-02-08 07:18] LABS: HEMATOCRIT 42.8 % (31.2-41.9); MEAN CORPUSCULAR VOLUME 96.4 fL (75.5-95.3); PLATELET COUNT (AUTO) 208 K/uL (179-408)
[2023-02-08 07:42] LABS: CREATININE 0.6 mg/dL (0.6-1.3); MAGNESIUM 1.8 mg/dL (1.8-2.4); PHOSPHOROUS 4.2 mg/dL (2.5-4.9); POTASSIUM 3.8 mmol/L (3.5-5.1)
[2023-02-08] MEDS: DRONABINOL 2.5 MG CAPSULE PO SCH ×2 (08:13→16:57)
--- NOTE | 2023-02-08 08:35 | NUR ---
Pt bp 101/52. Held erlin Patel aware.
[2023-02-08 08:41] LABS: NEUTROPHILS % (MANUAL) 0 % (42-75)
[2023-02-08 08:51] LABS: THYROID STIMULATING HORMONE 2.856 mIU/mL (0.358-3.740)
[2023-02-08] MEDS: hydrALAZINE HCL 25 MG TABLET PO SCH ×2 (09:00→16:57)
--- NOTE | 2023-02-08 09:00 | NUR ---
Pts bp 91/55 Hr 87. Pt denies any feelings of dizziness or headaches. Pt also wants dilaudid 1 mg as ordered prn pain. Informed pt that i need to hold Dilaudid and inform MD for her safety.
[2023-02-08] MEDS ORDERED: HYDROCODONE/APAP 10-325 MG TABLET PO PRN (09:30)
[2023-02-08] MEDS ORDERED: IV NORMAL SALINE 250 ML IV ONE (09:30)
--- NOTE | 2023-02-08 10:54 | NUR ---
Pt was given [place] as alternative. pt expressed her displeasure for norco and still wants dilaudid irrespective of low BP. I explained the risk of respiratory depression. Pt verbalize understanding.
--- NOTE | 2023-02-08 10:58 | NUR ---
Pts bp now 125/66 post 250ml bolus per md order. pt resting at this time. Offers no complaints. Will continue pts plan of care.
[2023-02-08] MEDS: OXYCODONE HCL 5 MG TABLET PO PRN ×2 (14:01→20:41)
[2023-02-08] MEDS ORDERED: hydrALAZINE HCL 50 MG TABLET PO SCH (17:00)
--- NOTE | 2023-02-08 18:55 | NUR ---
Pt stable. Offers no complaints at the moment. Pt now on oxy IR for pain management. Pt diet now regular.Pt tolerated diet with no complaints of nausea or vomiting or stomach pains. Continent of bowel and bladder.No diarrhea episodes as well. BP stable at 130/75. HR 78. Will endorse to incoming RN to continue pts plan of care.
[2023-02-08] MEDS: AMLODIPINE 10 MG TABLET PO SCH (20:40)
[2023-02-09] MEDS: OXYCODONE HCL 5 MG TABLET PO PRN ×2 (03:07→09:07)
[2023-02-09 04:54] VITALS: BP 126/66
--- NOTE | 2023-02-09 06:30 | NUR ---
RECEIVED PATIENT ALERT AND ORIENTED X4 PATIENT GIVEN MEDICATION ORDERED WAS GIVEN PAIN MEDICATION OF OXY IR FOR PAIN 6 TABLETS NO SIGNS ADVERSE REACTION FROM PAIN MEDICATION AND OTHER MEDICATION. PAIN MEDICATION WAS GIVEN TWICE DURING THE SHIFT LAST DOSE GIVEN AT 0300 AND NEXT DOSE IS DUE AT 0800 FALL AND SAFETY MAINTAINED WILL CONTINUE TO MONITOR AND ENDORSE TO NEXT SHIFT NURSE.
[2023-02-09] MEDS: PANTOPRAZOLE SODIUM 40 MG TABLET.DR PO SCH (07:12)
[2023-02-09] MEDS: DRONABINOL 2.5 MG CAPSULE PO SCH (09:07)
[2023-02-09 09:09] VITALS: BP 143/73
[2023-02-09] MEDS: hydrALAZINE HCL 25 MG TABLET PO SCH (09:09)
[2023-02-09] MEDS ORDERED: AMLO5TAB4 PO (11:36)
[2023-02-09] MEDS ORDERED: OXYC30TA2 PO (11:36)
[2023-02-09] MEDS ORDERED: Dronabinol PO (11:36)
[2023-02-09 12:01] VITALS: BP 119/76
--- NOTE | 2023-02-09 13:00 | NUR ---
RECEIVED REPORT FROM ALICIA GUZMAN, NOC SHIFT RN. PATIENT IS ALERT & ORIENTED X4, AND SPEAKS SYRIAN. VITAL SIGNS STABLE. PATIENT TOLERATES PO MEDICATIONS AND DIET WELL. PATIENT DENIES NAUSEA AND VOMITING. PATIENT HAS COMPLAINT OF PAIN. RN GAVE MEDICATIONS ORDERED BY MD. PATIENT EXPRESSED A RELIEF OF SOME PAIN. CALL LIGHT WITHIN REACH. PATIENT MADE OF DISCHARGE BY MD. RN CONFIRMED. PATIENT AGREEABLE TO DISCHARGE. DISCHARGE INSTRUCTIONS & MEDICATION SCRIPT GIVEN. PATIENT VERBALIZED UNDERSTANDING. ALL QUESTIONS ANSWERED. PATIENT BELONGINGS ACCOUNTED FOR AND PATIENT BELONGINGS LIST SIGNED. RIGHT HAND IV DISCONTINUED. CATHETER TIP INTACT. RIGHT MIDLINE IV DISCONTINUED. CATHETER TIP INTACT. PATIENT DISCHARGE VIA WHEELCHAIR IN STABLE CONDITION TO CAREGIVER AT 1300.
== END 2023-02-09 13:00 | disposition home or self-care (01) | DRG 426 ==
LOC: ER 15:40 → TELE3 21:09 → MEDSURG3 02-05 10:21
PROVIDERS: ADMIT Nurse Practitioner Acute Care; ATTEND Internal Medicine
PROC: 05HB33Z Insertion of Infusion Device into Right Basilic Vein, Percutaneous Approach (ICD-10-PCS; principal; 2023-02-05)
DX: E87.1 Hypo-osmolality and hyponatremia (principal); A04.9 Bacterial intestinal infection, unspecified; K74.60 Unspecified cirrhosis of liver; E87.6 Hypokalemia; E83.42 Hypomagnesemia; F64.0 Transsexualism; M54.40 Lumbago with sciatica, unspecified side; E78.5 Hyperlipidemia, unspecified; G89.4 Chronic pain syndrome; R79.89 Other specified abnormal findings of blood chemistry; S39.012A Strain of muscle, fascia and tendon of lower back, initial encounter; W18.30XA Fall on same level, unspecified, initial encounter; Y92.89 Other specified places as the place of occurrence of the external cause; N28.1 Cyst of kidney, acquired; Z91.81 History of falling; F41.9 Anxiety disorder, unspecified; F32.A Depression, unspecified; B19.20 Unspecified viral hepatitis C without hepatic coma; R55 Syncope and collapse; Z76.5 Malingerer [conscious simulation]; E86.1 Hypovolemia; J45.909 Unspecified asthma, uncomplicated; Z88.5 Allergy status to narcotic agent; E86.0 Dehydration; I10 Essential (primary) hypertension; I51.89 Other ill-defined heart diseases; Z20.822 Contact with and (suspected) exposure to COVID-19; Z98.82 Breast implant status; Z79.899 Other long term (current) drug therapy; Z72.0 Tobacco use
CPT/HCPCS: 36415; 70030-TC; 71045; 83550; 83690; 83735; 84100; 84443; 84484; 85025; 93005; 93307; A4663; C9113; G0378; J0696; J1170; J1650; J2001; J2405; J2543; J3010; J3480; J3490; J7040; Q0167

== ENCOUNTER 2023-05-25 21:46 | Emergency (ER) | payer OTHER ==
[~2023-05-25] VITALS: Ht 170.2 cm; Wt 61.2 kg
[~2023-05-25 21:46] MED LIST changes: +ALPR2TAB7 PO; +AMLO5TAB4 PO; -ATEN50TA PO; +Dronabinol PO; -HYDR-3980 PO; +LIPA1CAP34 PO; +MIRT-93 PO; -NAPR-1009 PO; +OMEP40CA21 PO; -OXYC-128 PO; -OXYC-133 PO; -PROC10TA29 PO
--- NOTE | 2023-05-25 21:50 | NUR ---
AT BEDSIDE FOR EVAL.
[2023-05-25] MEDS ORDERED: OXYCODONE/APAP 5-325 MG TABLET ONE (21:58)
[2023-05-25] MEDS ORDERED: OXYC30TA2 PO (21:59)
[2023-05-25] MEDS ORDERED: OXYCODONE/APAP 5-325 MG TABLET PO ONE (22:00)
--- NOTE | 2023-05-25 22:03 | NUR ---
Called Patient's caregiver, left voicemail. Called [employer] for taxi voucher, [employer] will call back with ETA.
--- NOTE | 2023-05-25 22:10 | NUR ---
PT A,A AND O X 3 WITH C/O OF SEVERE BODY PAIN AND SHE STATED SHE IS GOING THROUGH WITHDRAWL. Patient discharged to home in stable condition. Written and verbal after care instructions given. Patient verbalizes understanding of instructions. Stressed follow up or return to ER for worsening s/s. PT AMB OUT WITH CANE, WAITING FOR TAXI.
[2023-05-25 22:20] VITALS: BP 134/51; TEMP 97.9; O2SAT 95
== END 2023-05-25 22:10 | disposition home or self-care (01) ==
LOC: ER 21:47
DX: G89.29 Other chronic pain (principal); M54.2 Cervicalgia; M25.512 Pain in left shoulder; M25.562 Pain in left knee; M25.561 Pain in right knee; F17.210 Nicotine dependence, cigarettes, uncomplicated; Z76.0 Encounter for issue of repeat prescription; Z88.8 Allergy status to other drugs, medicaments and biological substances; Z79.899 Other long term (current) drug therapy
CPT/HCPCS: A4663

== ENCOUNTER 2023-06-07 14:27 | Emergency (ER) | payer OTHER ==
[~2023-06-07] VITALS: Ht 175.3 cm; Wt 61.2 kg
--- NOTE | 2023-06-07 14:41 | NUR ---
Patient is constantly on her cellphone even during triage and registration time, pending MD evaluation.
--- NOTE | 2023-06-07 14:45 | NUR ---
Dr Alejandre is at bedside, medical screening exam in progress
[2023-06-07 15:12] LABS: HEMATOCRIT 41.8 % (31.2-41.9); MEAN CORPUSCULAR HEMOGLOBIN 34.6 uug (24.7-32.8); MEAN CORPUSCULAR VOLUME 100.4 fL (75.5-95.3); PLATELET COUNT (AUTO) 156 K/uL (179-408)
[2023-06-07 15:17] LABS: CREATININE 0.5 mg/dL (0.6-1.3); POTASSIUM 3.4 mmol/L (3.5-5.1)
[2023-06-07 15:23] LABS: BILIRUBIN,DIRECT 0.2 mg/dL (0.0-0.2); BILIRUBIN,TOTAL 0.5 mg/dL (0.2-1.0); MAGNESIUM 1.7 mg/dL (1.8-2.4); TOTAL PROTEIN, SERUM 6.6 g/dL (6.4-8.2)
[2023-06-07] MEDS ORDERED: POTA10CA43 PO (15:54)
[2023-06-07] MEDS ORDERED: MAGN200T5 PO (15:54)
[2023-06-07 16:00] VITALS: O2SAT 95
--- NOTE | 2023-06-07 16:08 | NUR ---
Taxi voucher was provided by RN [employer] supervisor Patricia. Patient is for discharge now.
--- NOTE | 2023-06-07 16:11 | NUR ---
Patient discharged to home by Dr Alejandre in stable condition with slow steady gait. Written and verbal after care instructions given to patient. Patient verbalized understanding and compliance of instructions. Stressed follow up with primary doctor and your pain doctor or return to ER for worsening s/s. Copies of all the tests' results were also given to patient.
[2023-06-08] MEDS ORDERED: OXYC5TAB3 PO (02:01)
== END 2023-06-07 16:14 | disposition home or self-care (01) ==
LOC: ER 14:27
DX: M79.10 Myalgia, unspecified site (principal); E87.6 Hypokalemia; E83.42 Hypomagnesemia; F17.210 Nicotine dependence, cigarettes, uncomplicated; Z90.49 Acquired absence of other specified parts of digestive tract; Z90.89 Acquired absence of other organs; Z88.8 Allergy status to other drugs, medicaments and biological substances; Z79.899 Other long term (current) drug therapy
CPT/HCPCS: 36415; 83735; 85025; 93005; A4663

== ENCOUNTER 2023-06-08 01:00 | Emergency (ER) | payer OTHER ==
[~2023-06-08] VITALS: Ht 175.3 cm; Wt 61.2 kg
[~2023-06-08 01:00] MED LIST changes: +MAGN200T5 PO; +POTA10CA43 PO
--- NOTE | 2023-06-08 01:24 | NUR ---
Patient to room #3, awaiting MD exam, informed of plan of care at this time. Patient c/o chronic pain in multiple areas, but at this time c/o BLE pain from thigh down to feet. left foot with some discoloration noted. No s/s of any distress noted. Stated will see her PMD on friday, will continue to monitor.
[2023-06-08] MEDS ORDERED: MAGNESIUM OXIDE 400 MG TABLET PO ONE (01:45)
[2023-06-08] MEDS ORDERED: POTASSIUM CHLORIDE 20 MEQ TAB.PRT.SR PO ONE (01:45)
[2023-06-08] MEDS ORDERED: OXYCODONE/APAP 5-325 MG TABLET PO ONE (01:45)
[2023-06-08] MEDS ORDERED: MAGNESIUM OXIDE 400 MG TABLET ONE (01:48)
[2023-06-08] MEDS ORDERED: OXYCODONE/APAP 5-325 MG TABLET ONE (01:49)
[2023-06-08] MEDS ORDERED: POTASSIUM CHLORIDE 20 MEQ TAB.PRT.SR ONE (01:49)
[2023-06-08] MEDS ORDERED: OXYCODONE HCL 5 MG TABLET ONE (01:55)
[2023-06-08] MEDS ORDERED: OXYCODONE HCL 5 MG TABLET PO ONE (02:00)
[2023-06-08] MEDS ORDERED: OXYC5TAB3 PO (02:01)
--- NOTE | 2023-06-08 02:06 | NUR ---
patient has been medicated as per order, ACI given remains stable for discharge home with friend.
[2023-06-08 02:07] VITALS: BP 153/96; O2SAT 96
== END 2023-06-08 02:15 | disposition home or self-care (01) ==
LOC: ER 01:00
DX: E83.42 Hypomagnesemia (principal); E87.6 Hypokalemia; F11.10 Opioid abuse, uncomplicated; F17.210 Nicotine dependence, cigarettes, uncomplicated; Z90.89 Acquired absence of other organs; Z90.49 Acquired absence of other specified parts of digestive tract; Z88.8 Allergy status to other drugs, medicaments and biological substances; Z79.899 Other long term (current) drug therapy
CPT/HCPCS: A4663

== ENCOUNTER 2023-06-23 03:42 | Emergency (ER) | payer OTHER ==
[~2023-06-23] VITALS: Ht 175.3 cm; Wt 61.2 kg
[~2023-06-23 03:42] MED LIST changes: +OXYC5TAB3 PO
[2023-06-23 03:46] VITALS: O2SAT 97
[2023-06-23] MEDS ORDERED: LIDOCAINE 5% PATCH TD ONE ×2 (04:15)
[2023-06-23] MEDS ORDERED: ACETAMINOPHEN ES 500 MG TABLET ONE (04:15)
[2023-06-23] MEDS ORDERED: ACETAMINOPHEN ES 500 MG TABLET PO ONE (04:15)
[2023-06-23] MEDS ORDERED: DEXAMETHASONE SOD PHOSPHATE 4 MG INJ IM ONE (04:15)
[2023-06-23] MEDS ORDERED: DEXAMETHASONE SOD PHOSPHATE 10 MG INJ ONE (04:16)
[2023-06-23] MEDS ORDERED: diphenhydrAMINE 50 MG/1 ML VIAL IM ONE (12:45)
[2023-06-23] MEDS ORDERED: HYDROMORPHONE 1 MG/1 ML DISP.SYRIN IM ONE (12:45)
[2023-06-23] MEDS ORDERED: diphenhydrAMINE 50 MG/1 ML VIAL ONE (12:46)
[2023-06-23] MEDS ORDERED: HYDROMORPHONE 2 MG/1 ML DISP.SYRIN ONE (12:46)
== END 2023-06-23 14:07 | disposition short-term general hospital (02) ==
LOC: ER 03:49
DX: S32.028A Other fracture of second lumbar vertebra, initial encounter for closed fracture (principal); F17.210 Nicotine dependence, cigarettes, uncomplicated; Z90.49 Acquired absence of other specified parts of digestive tract; Z90.89 Acquired absence of other organs; Z88.8 Allergy status to other drugs, medicaments and biological substances; Z79.899 Other long term (current) drug therapy; Z20.822 Contact with and (suspected) exposure to COVID-19; X58.XXXA Exposure to other specified factors, initial encounter; Y93.89 Activity, other specified; Y92.89 Other specified places as the place of occurrence of the external cause; Y99.8 Other external cause status
CPT/HCPCS: 99285; 72128; 87426; 72131; 96372 ×3; J1100; J1200; J1170; A4663; A9150

== ENCOUNTER 2024-02-22 17:56 | Inpatient (IN) | payer OTHER ==
[~2024-02-22] VITALS: Ht 175.3 cm; Wt 54.4 kg
[2024-02-22] MEDS ORDERED: ERGO800011 PO (18:52)
[2024-02-22] MEDS ORDERED: GABA800T11 PO (18:52)
[2024-02-22] MEDS ORDERED: OXYC20TA42 PO (18:52)
[2024-02-22] MEDS ORDERED: TRIA0.2585 PO (18:52)
[2024-02-22] MEDS ORDERED: NICO-780 TD (18:52)
[2024-02-22] MEDS ORDERED: ACET-3117 PO (18:52)
[2024-02-22] MEDS ORDERED: DOCU100T2 PO (18:52)
[2024-02-22] MEDS ORDERED: AMLO10TA59 PO (18:52)
[2024-02-22] MEDS ORDERED: BISA10SU61 RC (18:52)
[2024-02-22] MEDS ORDERED: MULT-213 PO (18:52)
[2024-02-22] MEDS ORDERED: ASPI-612 PO (18:52)
[2024-02-22] MEDS: IV NORMAL SALINE 500 ML BAG IV ONE (19:09)
[2024-02-22] MEDS ORDERED: FENTANYL CITRATE 100 MCG/2 ML AMPUL ONE ×2 (19:19→20:12)
[2024-02-22] MEDS ORDERED: ONDANSETRON 4 MG/2 ML VIAL ONE (19:20)
[2024-02-22] MEDS: FENTANYL CITRATE 100 MCG/2 ML AMPUL IV ONE ×2 (19:25→20:16)
[2024-02-22] MEDS: ONDANSETRON 4 MG/2 ML VIAL IV ONE (19:26)
[2024-02-22 20:17] LABS: BASOPHILS % (AUTO) 0.3 % (0.0-2.0); EOSINOPHILS % (AUTO) 0.3 % (0.0-7.0); HEMATOCRIT 42.2 % (31.2-41.9); LYMPHOCYTES # (AUTO) 1.7 K/uL (0.8-4.8); LYMPHOCYTES % (AUTO) 18.7 % (20.5-51.5); MEAN CORPUSCULAR HEMOGLOBIN 32.5 uug (24.7-32.8); MEAN CORPUSCULAR HGB CONC 36 g/dL (32.3-35.6); MEAN CORPUSCULAR VOLUME 91.3 fL (75.5-95.3); MONOCYTES % (AUTO) 10.9 % (0.0-11.0); NEUTROPHILS # (AUTO) 6.4 K/uL (1.8-8.9); NEUTROPHILS % (AUTO) 69.8 % (38.5-71.5); PLATELET COUNT (AUTO) 271 K/uL (179-408); RED BLOOD CELL COUNT(AUTO) 4.62 MIL/uL (3.63-4.92); RED CELL DISTRIBUTION WIDTH 13.9 % (12.3-17.7); WHITE BLOOD COUNT (AUTO) 9.2 K/uL (3.8-11.8)
[2024-02-22 20:18] LABS: DIFFERENTIAL COMMENT 1
[2024-02-22 20:21] LABS: ALANINE AMINOTRANSFERASE 47 U/L (14-59); ALBUMIN 2.8 g/dL (3.4-5.0); ALKALINE PHOSPHATASE 144 U/L (50-136); ASPARTATE AMINOTRANSFERASE 141 U/L (15-37); BILIRUBIN,TOTAL 0.4 mg/dL (0.2-1.0); C-REACTIVE PROTEIN 0.07 mg/dL (0.00-0.30); CALCIUM 8.1 mg/dL (8.5-10.1); CARBON DIOXIDE 22 mmol/L (21-32); CHLORIDE 98 mmol/L (98-107); CREATININE 0.7 mg/dL (0.6-1.3); GLUCOSE 110 mg/dL (74-106); MAGNESIUM 1.6 mg/dL (1.8-2.4); POTASSIUM 3.2 mmol/L (3.5-5.1); SODIUM SERUM 134 mmol/L (136-145); TOTAL PROTEIN, SERUM 7.4 g/dL (6.4-8.2); UREA NITROGEN, BLOOD 3 mg/dL (7-18)
[2024-02-22 20:28] LABS: ETHANOL < 3 MG/DL (0-10)
[2024-02-22 20:29] LABS: LACTIC ACID 2.1 mmol/L (0.4-2.0)
[2024-02-22] MEDS ORDERED: MAGNESIUM CHLORIDE 64 MG TABLET.SA PO STA (20:29)
[2024-02-22] MEDS ORDERED: POTASSIUM BICARBONATE/CIT AC 25 MEQ TABLET.EFF PO ONE (20:30)
[2024-02-22] MEDS ORDERED: POTASSIUM BICARBONATE/CIT AC 25 MEQ TABLET.EFF ONE (20:47)
[2024-02-22] MEDS ORDERED: PANTOPRAZOLE SODIUM 40 MG VIAL ONE (20:53)
[2024-02-22] MEDS ORDERED: HYDROMORPHONE 1 MG/1 ML DISP.SYRIN ONE ×2 (20:53→23:55)
[2024-02-22] MEDS: HYDROMORPHONE 1 MG/1 ML DISP.SYRIN IV ONE (21:06)
[2024-02-22] MEDS: PANTOPRAZOLE SODIUM IV 40 MG in IV DEXTROSE 5% 100 ML IV ONE (21:06)
[2024-02-22] MEDS ORDERED: DIATR MEGLU/DIATRIZOATE SODIUM 30 ML BOTTLE ONE (21:07)
[2024-02-22] MEDS: DIATR MEGLU/DIATRIZOATE SODIUM 30 ML BOTTLE PO ONE (21:21)
[2024-02-22] MEDS: POTASSIUM CHLORIDE 50 ML IV SCH (21:22)
[2024-02-22] MEDS ORDERED: predniSONE 20 MG TABLET ONE (22:45)
[2024-02-22] MEDS: MAGNESIUM SULFATE/D5W 100 ML IV SCH (23:03)
[2024-02-23] MEDS: HYDROMORPHONE 1 MG/1 ML DISP.SYRIN IV ONE (00:05)
[2024-02-23 01:00] VITALS: BP 161/96; TEMP 98.7
[2024-02-23] MEDS: OXYCODONE/APAP 5-325 MG TABLET PO PRN (03:44)
[2024-02-23 06:00] VITALS: BP 121/73; TEMP 97.4; O2SAT 100
[2024-02-23] MEDS ORDERED: MORPHINE SULFATE 2 MG/1 ML DISP.SYRIN IV PRN (09:00)
[2024-02-23] MEDS ORDERED: LORAZEPAM 2 MG/1 ML VIAL IV PRN (09:00)
[2024-02-23] MEDS ORDERED: ONDANSETRON 4 MG/2 ML VIAL IV PRN (09:00)
[2024-02-23] MEDS ORDERED: ACETAMINOPHEN 650 MG SUPP.RECT RC PRN (09:00)
[2024-02-23] MEDS: PANTOPRAZOLE SODIUM 40 MG VIAL IV SCH (09:43)
[2024-02-23] MEDS: POTASSIUM CHLORIDE 20 MEQ in IV D5 1/2 NS 1000 ML 1,000 ML IV PRN (09:44)
[2024-02-23] MEDS: PIPERACILLIN SODIUM/TAZOBACTAM 3.375 G in IV DEXTROSE 5% 100 ML IV SCH (09:44)
[2024-02-23] MEDS: HYDROMORPHONE 1 MG/1 ML DISP.SYRIN IV PRN (10:46)
[2024-02-23 11:59] VITALS: BP 149/81; TEMP 97.6; O2SAT 100
[2024-02-23] MEDS ORDERED: PIPERACILLIN SODIUM/TAZOBACTAM 3.375 G in IV DEXTROSE 5% 50 ML IV SCH (14:00)
[2024-02-23 16:11] VITALS: BP 143/80; TEMP 98.3; O2SAT 100
[2024-02-23] MEDS ORDERED: Medication Not On Formulary EA (Acetaminophen 650 MG) PO PRN (18:30)
[2024-02-23] MEDS: HYDROMORPHONE 2 MG/1 ML DISP.SYRIN IV PRN (19:29)
[2024-02-23 20:20] VITALS: BP 134/83; TEMP 97.6; O2SAT 100
[2024-02-23] MEDS ORDERED: TRIAZOLAM 0.25 MG PO SCH (21:00)
[2024-02-23 22:40] LABS: *OCCULT BLOOD STOOL POSITIVE (NEGATIVE)
[2024-02-24 06:00] VITALS: BP 162/85; TEMP 97.9; O2SAT 100
[2024-02-24] MEDS ORDERED: ALPRAZOLAM 0.5 MG TABLET PO PRN (07:30)
[2024-02-24] MEDS ORDERED: TRIAZOLAM 0.125 MG TABLET PO PRN (07:30)
[2024-02-24] MEDS: AMLODIPINE 10 MG TABLET PO SCH (08:12)
[2024-02-24] MEDS: NICOTINE 21 MG/24HR PATCH TD SCH (08:13)
[2024-02-24] MEDS: MULTIVIT, IRON, MIN NO. 8, FA TABLET PO SCH (08:13)
[2024-02-24 09:16] LABS: BASOPHILS % (AUTO) 0.7 % (0.0-2.0); EOSINOPHILS # (AUTO) 0.3 K/uL (0.0-0.7); EOSINOPHILS % (AUTO) 6.9 % (0.0-7.0); HEMOGLOBIN 13.3 g/dL (10.9-14.3); LYMPHOCYTES # (AUTO) 1.5 K/uL (0.8-4.8); MEAN CORPUSCULAR HEMOGLOBIN 32.7 uug (24.7-32.8); MEAN CORPUSCULAR HGB CONC 35 g/dL (32.3-35.6); MEAN CORPUSCULAR VOLUME 93.6 fL (75.5-95.3); MONOCYTES # (AUTO) 0.5 K/uL (0.1-1.30); MONOCYTES % (AUTO) 13.9 % (0.0-11.0); NEUTROPHILS # (AUTO) 1.6 K/uL (1.8-8.9); NEUTROPHILS % (AUTO) 39.5 % (38.5-71.5); PLATELET COUNT (AUTO) 158 K/uL (179-408); RED BLOOD CELL COUNT(AUTO) 4.06 MIL/uL (3.63-4.92); RED CELL DISTRIBUTION WIDTH 14.1 % (12.3-17.7)
[2024-02-24 09:35] LABS: CALCIUM 8.1 mg/dL (8.5-10.1); CREATININE 0.6 mg/dL (0.6-1.3); POTASSIUM 3.7 mmol/L (3.5-5.1)
[2024-02-24 09:38] LABS: DIFFERENTIAL COMMENT 1
[2024-02-24 09:41] LABS: ALBUMIN 2.6 g/dL (3.4-5.0); BILIRUBIN,TOTAL 0.5 mg/dL (0.2-1.0); MAGNESIUM 1.9 mg/dL (1.8-2.4); PHOSPHOROUS 4.3 mg/dL (2.5-4.9); TOTAL PROTEIN, SERUM 6.9 g/dL (6.4-8.2)
[2024-02-24 11:35] VITALS: BP 160/95; TEMP 97.9; O2SAT 99
[2024-02-24] MEDS ORDERED: LORAZEPAM 2 MG/1 ML VIAL IV PRN (12:30)
[2024-02-24 15:57] VITALS: BP 155/83; TEMP 98.2; O2SAT 98
[2024-02-24 20:25] VITALS: BP 166/86; TEMP 98.5; O2SAT 99
[2024-02-24] MEDS: CLONIDINE HCL 0.1 MG TABLET PO PRN (22:35)
[2024-02-25 06:21] VITALS: BP 149/80; TEMP 98.7; O2SAT 97
[2024-02-25 07:22] LABS: BASOPHILS % (AUTO) 0.7 % (0.0-2.0); EOSINOPHILS # (AUTO) 0.4 K/uL (0.0-0.7); EOSINOPHILS % (AUTO) 10.8 % (0.0-7.0); HEMATOCRIT 35.4 % (31.2-41.9); HEMOGLOBIN 12.2 g/dL (10.9-14.3); LYMPHOCYTES # (AUTO) 1.4 K/uL (0.8-4.8); LYMPHOCYTES % (AUTO) 35.2 % (20.5-51.5); MEAN CORPUSCULAR HEMOGLOBIN 32.1 uug (24.7-32.8); MEAN CORPUSCULAR HGB CONC 35 g/dL (32.3-35.6); MEAN CORPUSCULAR VOLUME 92.9 fL (75.5-95.3); MONOCYTES # (AUTO) 0.6 K/uL (0.1-1.30); MONOCYTES % (AUTO) 14.9 % (0.0-11.0); NEUTROPHILS # (AUTO) 1.5 K/uL (1.8-8.9); NEUTROPHILS % (AUTO) 38.4 % (38.5-71.5); PLATELET COUNT (AUTO) 160 K/uL (179-408); RED BLOOD CELL COUNT(AUTO) 3.81 MIL/uL (3.63-4.92); WHITE BLOOD COUNT (AUTO) 3.9 K/uL (3.8-11.8)
[2024-02-25 07:29] LABS: CALCIUM 8.2 mg/dL (8.5-10.1); CREATININE 0.6 mg/dL (0.6-1.3); POTASSIUM 3.6 mmol/L (3.5-5.1)
[2024-02-25 08:03] LABS: DIFFERENTIAL COMMENT 1
[2024-02-25 11:18] VITALS: BP 144/82; TEMP 97.9; O2SAT 97
[2024-02-25 15:25] VITALS: BP 160/86; TEMP 98.7; O2SAT 99
[2024-02-25 20:00] VITALS: BP 168/88; TEMP 98; TEMP 98.2; O2SAT 97
[2024-02-25] MEDS: GOLYTELY 4000 ML BOTTLE PO ONE (21:26)
[2024-02-26 04:46] VITALS: BP 145/87; TEMP 97.9; O2SAT 97
[2024-02-26 05:06] VITALS: TEMP 97.9
[2024-02-26 07:30] LABS: BASOPHILS % (AUTO) 0.4 % (0.0-2.0); EOSINOPHILS # (AUTO) 0.5 K/uL (0.0-0.7); EOSINOPHILS % (AUTO) 10.8 % (0.0-7.0); HEMATOCRIT 38.9 % (31.2-41.9); HEMOGLOBIN 13.6 g/dL (10.9-14.3); LYMPHOCYTES # (AUTO) 1.4 K/uL (0.8-4.8); LYMPHOCYTES % (AUTO) 31.1 % (20.5-51.5); MEAN CORPUSCULAR HEMOGLOBIN 32.3 uug (24.7-32.8); MEAN CORPUSCULAR HGB CONC 35 g/dL (32.3-35.6); MEAN CORPUSCULAR VOLUME 92.1 fL (75.5-95.3); MONOCYTES # (AUTO) 0.6 K/uL (0.1-1.30); MONOCYTES % (AUTO) 14.1 % (0.0-11.0); NEUTROPHILS # (AUTO) 1.9 K/uL (1.8-8.9); NEUTROPHILS % (AUTO) 43.6 % (38.5-71.5); PLATELET COUNT (AUTO) 157 K/uL (179-408); RED BLOOD CELL COUNT(AUTO) 4.22 MIL/uL (3.63-4.92); RED CELL DISTRIBUTION WIDTH 13.8 % (12.3-17.7); WHITE BLOOD COUNT (AUTO) 4.4 K/uL (3.8-11.8)
[2024-02-26 07:41] LABS: CALCIUM 8.6 mg/dL (8.5-10.1); CREATININE 0.5 mg/dL (0.6-1.3); POTASSIUM 3.5 mmol/L (3.5-5.1)
[2024-02-26 07:51] LABS: DIFFERENTIAL COMMENT 1
[2024-02-26 09:39] VITALS: BP 155/98; TEMP 97.6; O2SAT 97
[2024-02-26 11:56] VITALS: BP 142/86; TEMP 97.8; O2SAT 99
[2024-02-26 16:00] VITALS: BP 130/83; TEMP 98.3; O2SAT 99
[2024-02-27 04:00] VITALS: TEMP 98.2
[2024-02-27 06:00] VITALS: TEMP 98.2
[2024-02-27] MEDS ORDERED: MIDAZOLAM HCL 2 MG/2 ML VIAL ONE (09:59)
[2024-02-27] MEDS ORDERED: LIDOCAINE 2% (GLYDO= UROJET) 10 ML JELLY MM ONE (09:59)
[2024-02-27] MEDS ORDERED: PROPOFOL 200 MG/20 ML BOTTLE ONE (10:00)
[2024-02-27] MEDS ORDERED: GLUCAGON,HUMAN RECOMBINANT 1 MG VIAL ONE (11:00)
[2024-02-27] MEDS ORDERED: HYDROMORPHONE 1 MG/1 ML DISP.SYRIN ONE (12:18)
[2024-02-27 15:35] VITALS: BP 142/85; TEMP 98; O2SAT 99
[2024-02-27 20:00] VITALS: BP 164/85; TEMP 98.1; O2SAT 98
[2024-02-28 04:00] VITALS: BP 102/62; TEMP 98.2; O2SAT 97
[2024-02-28 06:00] VITALS: BP 102/62; TEMP 98.2; O2SAT 97
[2024-02-28 06:14] LABS: BASOPHILS % (AUTO) 0.5 % (0.0-2.0); EOSINOPHILS # (AUTO) 0.3 K/uL (0.0-0.7); EOSINOPHILS % (AUTO) 9.4 % (0.0-7.0); HEMATOCRIT 34.8 % (31.2-41.9); HEMOGLOBIN 12.3 g/dL (10.9-14.3); LYMPHOCYTES # (AUTO) 1.5 K/uL (0.8-4.8); LYMPHOCYTES % (AUTO) 41.1 % (20.5-51.5); MEAN CORPUSCULAR HEMOGLOBIN 32.6 uug (24.7-32.8); MEAN CORPUSCULAR HGB CONC 35 g/dL (32.3-35.6); MEAN CORPUSCULAR VOLUME 92.4 fL (75.5-95.3); MONOCYTES # (AUTO) 0.6 K/uL (0.1-1.30); MONOCYTES % (AUTO) 14.9 % (0.0-11.0); NEUTROPHILS # (AUTO) 1.3 K/uL (1.8-8.9); NEUTROPHILS % (AUTO) 34.1 % (38.5-71.5); PLATELET COUNT (AUTO) 140 K/uL (179-408); RED BLOOD CELL COUNT(AUTO) 3.77 MIL/uL (3.63-4.92); RED CELL DISTRIBUTION WIDTH 14.2 % (12.3-17.7); WHITE BLOOD COUNT (AUTO) 3.7 K/uL (3.8-11.8)
[2024-02-28 06:24] LABS: CALCIUM 8.3 mg/dL (8.5-10.1); CREATININE 0.6 mg/dL (0.6-1.3); POTASSIUM 3.4 mmol/L (3.5-5.1)
[2024-02-28 06:26] LABS: DIFFERENTIAL COMMENT 1
[2024-02-28] MEDS: POTASSIUM CHLORIDE 20 MEQ TAB.PRT.SR PO SCH (10:08)
[2024-02-28] MEDS: MEGESTROL ACETATE 20 MG TABLET PO SCH (10:08)
[2024-02-28] MEDS: MIRALAX 17 GM POWD.PACK PO SCH (10:08)
[2024-02-28 12:00] VITALS: BP 116/67; TEMP 97.6; O2SAT 97
[2024-02-28 16:00] VITALS: BP 139/67; TEMP 98.2; O2SAT 98
[2024-02-28] MEDS: ENSURE WITH FIBER 237 ML LIQUID (CHOCOLATE) PO SCH (16:19)
[2024-02-28 20:00] VITALS: BP 141/77; TEMP 98.4; O2SAT 98
[2024-02-29 05:30] VITALS: BP 145/77; TEMP 98.1; O2SAT 98
[2024-02-29 11:35] VITALS: BP 135/76; TEMP 98.2; O2SAT 99
[2024-02-29 16:00] VITALS: BP 145/78; TEMP 98.4; O2SAT 98
[2024-02-29 20:05] VITALS: BP 138/76; TEMP 98.3; O2SAT 97
[2024-03-01 05:39] VITALS: BP 147/85; TEMP 98.4; O2SAT 98
[2024-03-01] MEDS ORDERED: METR500T PO (09:18)
[2024-03-01] MEDS ORDERED: OXYC20TA42 PO (09:18)
[2024-03-01] MEDS ORDERED: ACID1TAB4 PO (09:18)
[2024-03-01] MEDS ORDERED: CIPR500S2 PO (09:18)
[2024-03-01 11:33] VITALS: BP 149/79; TEMP 97.9; O2SAT 97
[2024-03-01] MEDS ORDERED: PANTOPRAZOLE SODIUM 40 MG TABLET.DR PO SCH (17:00)
== END 2024-03-01 12:05 | disposition home health service (06) | DRG 248 ==
LOC: ER 17:59 → MEDSURG3 23:53
PROVIDERS: ADMIT Nurse Practitioner Acute Care; ATTEND Internal Medicine
PROC: 05HB33Z Insertion of Infusion Device into Right Basilic Vein, Percutaneous Approach (ICD-10-PCS; principal; 2024-02-22)
PROC: 0DJD8ZZ Inspection of Lower Intestinal Tract, Via Natural or Artificial Opening Endoscopic (ICD-10-PCS; 2024-02-27)
PROC: 0DB38ZX Excision of Lower Esophagus, Via Natural or Artificial Opening Endoscopic, Diagnostic (ICD-10-PCS; 2024-02-27)
PROC: 0DB68ZX Excision of Stomach, Via Natural or Artificial Opening Endoscopic, Diagnostic (ICD-10-PCS; 2024-02-27)
DX: A04.9 Bacterial intestinal infection, unspecified (principal); E87.1 Hypo-osmolality and hyponatremia; E87.20 Acidosis, unspecified; K74.60 Unspecified cirrhosis of liver; E87.6 Hypokalemia; M25.551 Pain in right hip; S72.91XD Unspecified fracture of right femur, subsequent encounter for closed fracture with routine healing; X58.XXXD Exposure to other specified factors, subsequent encounter; Z91.81 History of falling; F64.0 Transsexualism; Z86.19 Personal history of other infectious and parasitic diseases; G89.4 Chronic pain syndrome; E78.5 Hyperlipidemia, unspecified; F41.9 Anxiety disorder, unspecified; F32.A Depression, unspecified; F17.210 Nicotine dependence, cigarettes, uncomplicated; K31.4 Gastric diverticulum; R19.5 Other fecal abnormalities; M19.90 Unspecified osteoarthritis, unspecified site; K22.9 Disease of esophagus, unspecified; I10 Essential (primary) hypertension; N28.1 Cyst of kidney, acquired; M51.17 Intervertebral disc disorders with radiculopathy, lumbosacral region; Z88.5 Allergy status to narcotic agent; Z79.891 Long term (current) use of opiate analgesic; Z79.899 Other long term (current) drug therapy; F11.10 Opioid abuse, uncomplicated; Z68.1 Body mass index [BMI] 19.9 or less, adult
CPT/HCPCS: 36415; 70450; 72100; 73502; 74150; 76705; 83550; 83605; 83735; 84100; 85025; 86140; 86803; 88313-TC; 88342; A4663; C9113; G0378; G0480; J1170; J1610; J2250; J2405; J2543; J3010; J3475; J3480; J3490; J7040; J7512; Q9963

== ENCOUNTER 2024-04-09 15:33 | Emergency (ER) | payer OTHER ==
[~2024-04-09] VITALS: Ht 175.3 cm; Wt 50.0 kg
[~2024-04-09 15:33] MED LIST changes: +ACET-3117 PO; +ACID1TAB4 PO; +AMLO10TA59 PO; -AMLO5TAB4 PO; +ASPI-612 PO; +BISA10SU61 RC; -CARI350T PO; +CIPR500S2 PO; +DOCU100T2 PO; -Dronabinol PO; +ERGO800011 PO; +GABA800T11 PO; -LIPA1CAP34 PO; -MAGN200T5 PO; +METR500T PO; -MIRT-93 PO; +MULT-213 PO; +NICO-780 TD; -OMEP40CA21 PO; +OXYC20TA42 PO; -OXYC30TA2 PO; -OXYC5TAB3 PO; -POTA10CA43 PO; -TRIA0.252 PO; +TRIA0.2585 PO
[2024-04-09] MEDS ORDERED: HYDROMORPHONE 1 MG/1 ML DISP.SYRIN ONE (16:43)
[2024-04-09] MEDS ORDERED: HYDROMORPHONE 2 MG/1 ML DISP.SYRIN ONE ×2 (16:43→18:42)
[2024-04-09] MEDS ORDERED: ONDANSETRON 4 MG/2 ML VIAL ONE (16:45)
[2024-04-09 16:46] LABS: HEMATOCRIT 50.9 % (31.2-41.9)
[2024-04-09] MEDS: ONDANSETRON 4 MG/2 ML VIAL IV ONE (16:47)
[2024-04-09] MEDS: HYDROMORPHONE 1 MG/1 ML DISP.SYRIN IV ONE ×2 (16:47→18:45)
[2024-04-09 17:03] LABS: CALCIUM 8.4 mg/dL (8.5-10.1); CREATININE 0.5 mg/dL (0.6-1.3); POTASSIUM 3.3 mmol/L (3.5-5.1)
[2024-04-09 17:09] LABS: ALBUMIN 3.1 g/dL (3.4-5.0); BILIRUBIN,DIRECT 0.2 mg/dL (0.0-0.2); BILIRUBIN,TOTAL 0.6 mg/dL (0.2-1.0); MAGNESIUM 1.8 mg/dL (1.8-2.4); TOTAL PROTEIN, SERUM 7.8 g/dL (6.4-8.2)
[2024-04-09 17:16] LABS: BASOPHILS % (AUTO) 0.8 % (0.0-2.0); DIFFERENTIAL COMMENT 0; EOSINOPHILS % (AUTO) 0.8 % (0.0-7.0); HEMOGLOBIN 17.1 g/dL (10.9-14.3); LYMPHOCYTES # (AUTO) 1.4 K/uL (0.8-4.8); LYMPHOCYTES % (AUTO) 37.4 % (20.5-51.5); MEAN CORPUSCULAR HEMOGLOBIN 32.7 uug (24.7-32.8); MEAN CORPUSCULAR HGB CONC 34 g/dL (32.3-35.6); MEAN CORPUSCULAR VOLUME 97.1 fL (75.5-95.3); MONOCYTES # (AUTO) 0.4 K/uL (0.1-1.30); MONOCYTES % (AUTO) 10.6 % (0.0-11.0); NEUTROPHILS # (AUTO) 1.9 K/uL (1.8-8.9); NEUTROPHILS % (AUTO) 50.4 % (38.5-71.5); PLATELET COUNT (AUTO) 173 K/uL (179-408); RED BLOOD CELL COUNT(AUTO) 5.24 MIL/uL (3.63-4.92); RED CELL DISTRIBUTION WIDTH 16.3 % (12.3-17.7); WHITE BLOOD COUNT (AUTO) 3.8 K/uL (3.8-11.8)
[2024-04-09] MEDS ORDERED: POTASSIUM BICARBONATE/CIT AC 25 MEQ TABLET.EFF ONE (17:44)
[2024-04-09] MEDS: POTASSIUM BICARBONATE/CIT AC 25 MEQ TABLET.EFF PO ONE (17:49)
[2024-04-09] MEDS ORDERED: ONDA4TAB5 PO (18:21)
[2024-04-09] MEDS ORDERED: HYDR4TAB4 PO (18:22)
[2024-04-09 18:57] VITALS: BP 128/66; TEMP 98.3; O2SAT 97
== END 2024-04-09 19:00 | disposition home or self-care (01) ==
LOC: ER 15:33
DX: G89.29 Other chronic pain (principal); R11.2 Nausea with vomiting, unspecified; E87.1 Hypo-osmolality and hyponatremia; E87.6 Hypokalemia; E46 Unspecified protein-calorie malnutrition; R19.7 Diarrhea, unspecified; E83.51 Hypocalcemia; F32.A Depression, unspecified; F17.200 Nicotine dependence, unspecified, uncomplicated; Z98.890 Other specified postprocedural states; Z79.899 Other long term (current) drug therapy; Z68.1 Body mass index [BMI] 19.9 or less, adult; Z88.5 Allergy status to narcotic agent
CPT/HCPCS: 99284; 96374; 96375; 80076; 80048; 82607; 83735; 85025; 36415; 73502; 74018; 96376; J2405; J1170 ×3; J7040; A4606; A4663

== ENCOUNTER 2024-04-23 22:47 | Emergency (ER) | payer SELFPAY ==
[~2024-04-23] VITALS: Ht 172.7 cm; Wt 49.9 kg
[2024-04-23] MEDS: LORAZEPAM 2 MG/1 ML VIAL IV ONE (00:19)
[~2024-04-23 22:47] MED LIST changes: +HYDR4TAB4 PO; +ONDA4TAB5 PO
[2024-04-24] MEDS ORDERED: LORAZEPAM 2 MG/1 ML VIAL ONE (00:02)
[2024-04-24] MEDS: IV NORMAL SALINE 1000 ML BAG IV ONE ×4 (00:19→12:47)
[2024-04-24] MEDS: IBUPROFEN 400 MG TABLET PO ONE (01:32)
[2024-04-24] MEDS: HYDROCODONE/APAP 10-325 MG TABLET PO ONE ×2 (01:32→13:39)
[2024-04-24] MEDS ORDERED: HYDROCODONE/APAP 10-325 MG TABLET ONE ×2 (03:19→13:36)
[2024-04-24] MEDS ORDERED: IBUPROFEN 400 MG TABLET ONE (03:19)
[2024-04-24 03:30] LABS: BASOPHILS % (AUTO) 0.7 % (0.0-2.0); EOSINOPHILS # (AUTO) 0.1 K/uL (0.0-0.7); EOSINOPHILS % (AUTO) 3.5 % (0.0-7.0); HEMOGLOBIN 18.5 g/dL (10.9-14.3); LYMPHOCYTES # (AUTO) 1.9 K/uL (0.8-4.8); LYMPHOCYTES % (AUTO) 57.3 % (20.5-51.5); MEAN CORPUSCULAR HEMOGLOBIN 33.2 uug (24.7-32.8); MEAN CORPUSCULAR HGB CONC 34 g/dL (32.3-35.6); MONOCYTES # (AUTO) 0.4 K/uL (0.1-1.30); MONOCYTES % (AUTO) 11.9 % (0.0-11.0); NEUTROPHILS # (AUTO) 0.9 K/uL (1.8-8.9); NEUTROPHILS % (AUTO) 26.6 % (38.5-71.5); PLATELET COUNT (AUTO) 152 K/uL (179-408); RED BLOOD CELL COUNT(AUTO) 5.56 MIL/uL (3.63-4.92); RED CELL DISTRIBUTION WIDTH 15.9 % (12.3-17.7); WHITE BLOOD COUNT (AUTO) 3.3 K/uL (3.8-11.8)
[2024-04-24 03:34] LABS: DIFFERENTIAL COMMENT 1
[2024-04-24 03:48] LABS: CALCIUM 8.3 mg/dL (8.5-10.1); CREATININE 0.5 mg/dL (0.6-1.3); POTASSIUM 3.2 mmol/L (3.5-5.1)
[2024-04-24 04:13] LABS: LACTIC ACID 2.5 mmol/L (0.4-2.0)
[2024-04-24] MEDS ORDERED: LORAZEPAM 0.5 MG TABLET ONE (05:39)
[2024-04-24] MEDS ORDERED: OXYCODONE HCL 5 MG TABLET ONE (05:40)
[2024-04-24] MEDS: LORAZEPAM 0.5 MG TABLET PO ONE (05:43)
[2024-04-24] MEDS: OXYCODONE HCL 5 MG TABLET PO ONE (05:45)
[2024-04-24] MEDS ORDERED: HYDR-3980 PO (06:25)
[2024-04-24 07:24] LABS: BILIRUBIN,DIRECT 0.2 mg/dL (0.0-0.2); BILIRUBIN,TOTAL 0.6 mg/dL (0.2-1.0)
[2024-04-24 14:23] VITALS: BP 149/81; O2SAT 96
== END 2024-04-24 14:22 | disposition left against medical advice (07) ==
LOC: ER 22:50
DX: G89.4 Chronic pain syndrome (principal); E86.0 Dehydration; F17.200 Nicotine dependence, unspecified, uncomplicated; Z98.890 Other specified postprocedural states; Z79.899 Other long term (current) drug therapy; Z88.1 Allergy status to other antibiotic agents
CPT/HCPCS: 99284; 96374; 36415; 96361; 80048; 82247; 82248; 85025; 83605 ×2; J2060; J7040 ×5; A4606; A4663

== ENCOUNTER 2024-05-16 22:03 | Emergency (ER) | payer OTHER ==
[~2024-05-16] VITALS: Ht 172.7 cm; Wt 49.9 kg
[2024-05-16 22:03] VITALS: O2SAT 98
[~2024-05-16 22:03] MED LIST changes: +HYDR-3980 PO
== END 2024-05-16 23:10 | disposition left against medical advice (07) ==
LOC: ER 22:04
DX: G89.29 Other chronic pain (principal); M25.511 Pain in right shoulder; M25.551 Pain in right hip; N64.4 Mastodynia; Z53.21 Procedure and treatment not carried out due to patient leaving prior to being seen by health care provider
CPT/HCPCS: A4606; A4663

== ENCOUNTER 2024-07-05 23:06 | Emergency (ER) | payer OTHER ==
[~2024-07-05] VITALS: Ht 172.7 cm; Wt 49.9 kg
[2024-07-05] MEDS ORDERED: HYDROMORPHONE HCL 2 MG TABLET ONE (23:43)
[2024-07-05] MEDS: HYDROMORPHONE HCL 2 MG TABLET PO ONE (23:44)
[2024-07-06] MEDS: SULFAMETH/TRIMETH 800/160 MG TABLET PO ONE (01:21)
[2024-07-06] MEDS ORDERED: SULFAMETH/TRIMETH 800/160 MG TABLET ONE (01:26)
[2024-07-06 01:32] LABS: BASOPHILS # (AUTO) 0.2 K/UL (0.0-0.2); BASOPHILS % (AUTO) 4.3 % (0.0-2.0); EOSINOPHILS % (AUTO) 1.1 % (0.0-7.0); HEMATOCRIT 44.9 % (31.2-41.9); HEMOGLOBIN 15.8 g/dL (10.9-14.3); LYMPHOCYTES # (AUTO) 1.5 K/uL (0.8-4.8); LYMPHOCYTES % (AUTO) 34.7 % (20.5-51.5); MEAN CORPUSCULAR HEMOGLOBIN 35.3 uug (24.7-32.8); MEAN CORPUSCULAR HGB CONC 35 g/dL (32.3-35.6); MEAN CORPUSCULAR VOLUME 100.2 fL (75.5-95.3); MONOCYTES # (AUTO) 0.5 K/uL (0.1-1.30); MONOCYTES % (AUTO) 11.9 % (0.0-11.0); PLATELET COUNT (AUTO) 172 K/uL (179-408); RED BLOOD CELL COUNT(AUTO) 4.48 MIL/uL (3.63-4.92); RED CELL DISTRIBUTION WIDTH 14.3 % (12.3-17.7); WHITE BLOOD COUNT (AUTO) 4.3 K/uL (3.8-11.8)
[2024-07-06 01:46] LABS: DIFFERENTIAL COMMENT 1
[2024-07-06 01:53] LABS: CALCIUM 8.7 mg/dL (8.5-10.1); CREATININE 0.5 mg/dL (0.6-1.3); POTASSIUM 3.5 mmol/L (3.5-5.1)
[2024-07-06 01:59] LABS: BILIRUBIN,TOTAL 0.6 mg/dL (0.2-1.0); TOTAL PROTEIN, SERUM 7.2 g/dL (6.4-8.2)
[2024-07-06] MEDS ORDERED: HYDR2TAB4 PO (02:41)
[2024-07-06] MEDS ORDERED: HYDROMORPHONE HCL 2 MG TABLET ONE (02:41)
[2024-07-06] MEDS: HYDROMORPHONE HCL 2 MG TABLET PO ONE (02:44)
[2024-07-06 06:16] VITALS: BP 124/78; TEMP 98; O2SAT 98
== END 2024-07-06 06:16 | disposition home or self-care (01) ==
LOC: ER 23:06
DX: G89.29 Other chronic pain (principal); M79.671 Pain in right foot; M25.551 Pain in right hip; F32.A Depression, unspecified; F17.210 Nicotine dependence, cigarettes, uncomplicated; Z98.890 Other specified postprocedural states; Z90.49 Acquired absence of other specified parts of digestive tract; Z79.82 Long term (current) use of aspirin; Z79.1 Long term (current) use of non-steroidal anti-inflammatories (NSAID); Z79.891 Long term (current) use of opiate analgesic; Z79.899 Other long term (current) drug therapy; Z88.1 Allergy status to other antibiotic agents
CPT/HCPCS: 36415; 73502; 73590; 73630; 85025; A4606; A4663

== ENCOUNTER 2024-07-31 20:46 | Emergency (ER) | payer OTHER ==
[~2024-07-31] VITALS: Ht 172.7 cm; Wt 49.9 kg
[~2024-07-31 20:46] MED LIST changes: +HYDR2TAB4 PO
[2024-07-31 20:49] VITALS: O2SAT 97
[2024-07-31] MEDS ORDERED: OXYCODONE/APAP 5-325 MG TABLET ONE (21:35)
[2024-07-31] MEDS ORDERED: OXYC1TAB12 PO (21:36)
[2024-07-31] MEDS: OXYCODONE/APAP 5-325 MG TABLET PO ONE (21:38)
== END 2024-07-31 22:13 | disposition home or self-care (01) ==
LOC: ER 20:47
DX: M79.10 Myalgia, unspecified site (principal); G89.4 Chronic pain syndrome; F41.9 Anxiety disorder, unspecified; R45.1 Restlessness and agitation; R03.0 Elevated blood-pressure reading, without diagnosis of hypertension; J98.01 Acute bronchospasm; F32.A Depression, unspecified; F17.200 Nicotine dependence, unspecified, uncomplicated; Z98.890 Other specified postprocedural states; Z90.49 Acquired absence of other specified parts of digestive tract; Z79.82 Long term (current) use of aspirin; Z76.5 Malingerer [conscious simulation]; Z79.891 Long term (current) use of opiate analgesic; Z79.899 Other long term (current) drug therapy; Z88.1 Allergy status to other antibiotic agents
CPT/HCPCS: 93005; A4606; A4663

== ENCOUNTER 2024-08-01 22:58 | Emergency (ER) | payer OTHER ==
[~2024-08-01] VITALS: Ht 172.7 cm; Wt 49.9 kg
[~2024-08-01 22:58] MED LIST changes: +OXYC1TAB12 PO
[2024-08-01] MEDS ORDERED: OXYCODONE HCL 5 MG TABLET ONE (23:39)
[2024-08-01] MEDS: OXYCODONE HCL 5 MG TABLET PO ONE (23:41)
[2024-08-02] MEDS ORDERED: OXYCODONE HCL 5 MG TABLET ONE (01:11)
[2024-08-02] MEDS: OXYCODONE HCL 5 MG TABLET PO ONE (01:13)
[2024-08-02 01:19] VITALS: BP 132/72; O2SAT 98
== END 2024-08-02 01:19 | disposition home or self-care (01) ==
LOC: ER 22:59
DX: S30.0XXA Contusion of lower back and pelvis, initial encounter (principal); J98.01 Acute bronchospasm; F32.A Depression, unspecified; G89.29 Other chronic pain; F17.200 Nicotine dependence, unspecified, uncomplicated; Z98.890 Other specified postprocedural states; Z79.1 Long term (current) use of non-steroidal anti-inflammatories (NSAID); Z79.82 Long term (current) use of aspirin; Z79.891 Long term (current) use of opiate analgesic; Z79.899 Other long term (current) drug therapy; Z88.1 Allergy status to other antibiotic agents; W18.39XA Other fall on same level, initial encounter; Y93.89 Activity, other specified; Y92.89 Other specified places as the place of occurrence of the external cause; Y99.8 Other external cause status
CPT/HCPCS: 72131; 72192; A4606; A4663

== ENCOUNTER 2024-09-16 15:47 | Emergency (ER) | payer OTHER ==
[~2024-09-16] VITALS: Ht 175.3 cm; Wt 54.4 kg
[2024-09-16 16:01] VITALS: O2SAT 97
[2024-09-16] MEDS ORDERED: ONDANSETRON 4 MG/2 ML VIAL ONE (17:25)
[2024-09-16] MEDS ORDERED: PANTOPRAZOLE SODIUM 40 MG VIAL ONE (17:25)
[2024-09-16] MEDS ORDERED: HYDROMORPHONE 2 MG/1 ML DISP.SYRIN ONE ×3 (17:25→19:27)
[2024-09-16] MEDS: HYDROMORPHONE 1 MG/1 ML DISP.SYRIN IV ONE ×4 (17:37→19:30)
[2024-09-16] MEDS: PANTOPRAZOLE SODIUM 40 MG VIAL IV ONE (17:37)
[2024-09-16] MEDS: ONDANSETRON 4 MG/2 ML VIAL IV ONE (17:37)
[2024-09-16 17:58] LABS: BASOPHILS % (AUTO) 0.8 % (0.0-2.0); EOSINOPHILS # (AUTO) 0.1 K/uL (0.0-0.7); EOSINOPHILS % (AUTO) 1.6 % (0.0-7.0); HEMATOCRIT 38.9 % (31.2-41.9); HEMOGLOBIN 13.6 g/dL (10.9-14.3); LYMPHOCYTES # (AUTO) 1.4 K/uL (0.8-4.8); LYMPHOCYTES % (AUTO) 30.8 % (20.5-51.5); MEAN CORPUSCULAR HEMOGLOBIN 34.8 uug (24.7-32.8); MEAN CORPUSCULAR HGB CONC 35 g/dL (32.3-35.6); MEAN CORPUSCULAR VOLUME 99.8 fL (75.5-95.3); MONOCYTES # (AUTO) 0.5 K/uL (0.1-1.30); MONOCYTES % (AUTO) 10.7 % (0.0-11.0); NEUTROPHILS # (AUTO) 2.5 K/uL (1.8-8.9); NEUTROPHILS % (AUTO) 56.1 % (38.5-71.5); PLATELET COUNT (AUTO) 217 K/uL (179-408); WHITE BLOOD COUNT (AUTO) 4.5 K/uL (3.8-11.8)
[2024-09-16 18:00] LABS: DIFFERENTIAL COMMENT 1
[2024-09-16 18:01] LABS: CALCIUM 8.8 mg/dL (8.5-10.1); CARBON DIOXIDE 26 mmol/L (21-32); CHLORIDE 98 mmol/L (98-107); CREATININE 0.4 mg/dL (0.6-1.3); GLUCOSE 125 mg/dL (74-106); POTASSIUM 3.4 mmol/L (3.5-5.1); SODIUM SERUM 135 mmol/L (136-145); UREA NITROGEN, BLOOD 2 mg/dL (7-18)
[2024-09-16] MEDS ORDERED: diphenhydrAMINE 50 MG/1 ML VIAL ONE (18:05)
[2024-09-16 18:07] LABS: ALANINE AMINOTRANSFERASE 25 U/L (14-59); ALKALINE PHOSPHATASE 82 U/L (50-136); ASPARTATE AMINOTRANSFERASE 35 U/L (15-37); BILIRUBIN,DIRECT 0.2 mg/dL (0.0-0.2); BILIRUBIN,TOTAL 0.3 mg/dL (0.2-1.0); TOTAL PROTEIN, SERUM 7.3 g/dL (6.4-8.2)
== END 2024-09-16 19:55 | disposition home or self-care (01) ==
LOC: ER 15:47
DX: K22.6 Gastro-esophageal laceration-hemorrhage syndrome (principal); M54.50 Low back pain, unspecified; F17.210 Nicotine dependence, cigarettes, uncomplicated; F32.A Depression, unspecified; G89.29 Other chronic pain; Z90.49 Acquired absence of other specified parts of digestive tract; Z90.89 Acquired absence of other organs; Z79.82 Long term (current) use of aspirin; Z79.899 Other long term (current) drug therapy; Z88.5 Allergy status to narcotic agent; Z88.7 Allergy status to serum and vaccine
CPT/HCPCS: 99284; 96374; 96375; 80076; 80048; 85025; 85610; 36415; 96376 ×2; J1200; J2405; J2470; J1171 ×3; A4606; A4663

== ENCOUNTER 2024-09-17 20:04 | Emergency (ER) | payer OTHER ==
[~2024-09-17] VITALS: Ht 175.3 cm; Wt 54.4 kg
[2024-09-17 20:37] LABS: *OCCULT BLOOD STOOL NEGATIVE (NEGATIVE)
[2024-09-17] MEDS ORDERED: HYDROMORPHONE 2 MG/1 ML DISP.SYRIN ONE ×2 (20:43→22:11)
[2024-09-17] MEDS ORDERED: ONDANSETRON 4 MG/2 ML VIAL ONE (20:43)
[2024-09-17] MEDS ORDERED: PANTOPRAZOLE SODIUM 40 MG VIAL ONE (20:44)
[2024-09-17] MEDS: HYDROMORPHONE 1 MG/1 ML DISP.SYRIN IV ONE ×2 (20:46→22:19)
[2024-09-17] MEDS: PANTOPRAZOLE SODIUM IV 80 MG in IV DEXTROSE 5% 100 ML IV ONE (20:47)
[2024-09-17] MEDS: IV NORMAL SALINE 500 ML BAG IV ONE (20:48)
[2024-09-17 20:49] LABS: BASOPHILS % (AUTO) 0.5 % (0.0-2.0); DIFFERENTIAL COMMENT 1; EOSINOPHILS # (AUTO) 0.1 K/uL (0.0-0.7); EOSINOPHILS % (AUTO) 1.6 % (0.0-7.0); HEMATOCRIT 39.9 % (31.2-41.9); HEMOGLOBIN 14.3 g/dL (10.9-14.3); LYMPHOCYTES % (AUTO) 35.7 % (20.5-51.5); MEAN CORPUSCULAR HEMOGLOBIN 35.4 uug (24.7-32.8); MEAN CORPUSCULAR HGB CONC 36 g/dL (32.3-35.6); MONOCYTES # (AUTO) 0.5 K/uL (0.1-1.30); MONOCYTES % (AUTO) 9.4 % (0.0-11.0); NEUTROPHILS % (AUTO) 52.8 % (38.5-71.5); PLATELET COUNT (AUTO) 223 K/uL (179-408); RED BLOOD CELL COUNT(AUTO) 4.03 MIL/uL (3.63-4.92); RED CELL DISTRIBUTION WIDTH 13.3 % (12.3-17.7); WHITE BLOOD COUNT (AUTO) 5.6 K/uL (3.8-11.8)
[2024-09-17] MEDS: ONDANSETRON 4 MG/2 ML VIAL IV ONE (20:49)
[2024-09-17 20:51] LABS: CALCIUM 8.5 mg/dL (8.5-10.1); CARBON DIOXIDE 26 mmol/L (21-32); CHLORIDE 92 mmol/L (98-107); CREATININE 0.4 mg/dL (0.6-1.3); GLUCOSE 130 mg/dL (74-106); POTASSIUM 3.1 mmol/L (3.5-5.1); SODIUM SERUM 129 mmol/L (136-145); UREA NITROGEN, BLOOD 1 mg/dL (7-18)
[2024-09-17 21:01] LABS: ALANINE AMINOTRANSFERASE 27 U/L (14-59); ALBUMIN 3.1 g/dL (3.4-5.0); ALKALINE PHOSPHATASE 83 U/L (50-136); ASPARTATE AMINOTRANSFERASE 35 U/L (15-37); BILIRUBIN,DIRECT 0.2 mg/dL (0.0-0.2); BILIRUBIN,TOTAL 0.3 mg/dL (0.2-1.0); LIPASE 12 U/L (16-77); TOTAL PROTEIN, SERUM 7.5 g/dL (6.4-8.2)
[2024-09-17 21:41] LABS: *BILIRUBIN,URIN NEGATIVE (NEGATIVE); *BLOOD, URINE NEGATIVE (NEGATIVE); *CLARITY,URINE CLEAR (CLEAR); *COLOR,URINE YELLOW (YELLOW); *KETONES,URINE NEGATIVE (NEGATIVE); *PROTEIN,URINE NEGATIVE (NEGATIVE); *UROBILINOGEN,URINE 0.2 E.U./dl (NORMAL); LEUKOCYTE ESTERASE ,URINE NEGATIVE (NEGATIVE); NITRITE, URINE NEGATIVE (NEGATIVE); PH,URINE 7.5 (5.0-8.0); UGLUCOSE NEGATIVE (NEGATIVE)
[2024-09-18] MEDS ORDERED: HYDROMORPHONE 2 MG/1 ML DISP.SYRIN ONE (01:02)
[2024-09-18] MEDS: HYDROMORPHONE 1 MG/1 ML DISP.SYRIN IV ONE (01:11)
[2024-09-18] MEDS ORDERED: ONDANSETRON 4 MG/2 ML VIAL ONE (03:33)
[2024-09-18] MEDS: ONDANSETRON 4 MG/2 ML VIAL IV ONE (03:40)
[2024-09-18] MEDS ORDERED: OXYC10TA49 PO ×2 (05:28→05:32)
[2024-09-18] MEDS ORDERED: OXYCODONE HCL 5 MG TABLET ONE (05:31)
[2024-09-18] MEDS: OXYCODONE HCL 5 MG TABLET PO ONE (05:33)
[2024-09-18 05:52] VITALS: BP 133/84; TEMP 97.7; O2SAT 96
== END 2024-09-18 05:42 | disposition home or self-care (01) ==
LOC: ER 20:05
DX: R10.84 Generalized abdominal pain (principal); G89.29 Other chronic pain; M48.56XA Collapsed vertebra, not elsewhere classified, lumbar region, initial encounter for fracture; R11.2 Nausea with vomiting, unspecified; F11.23 Opioid dependence with withdrawal; R03.0 Elevated blood-pressure reading, without diagnosis of hypertension; E87.1 Hypo-osmolality and hyponatremia; E87.6 Hypokalemia; F17.210 Nicotine dependence, cigarettes, uncomplicated; F32.A Depression, unspecified; Z79.82 Long term (current) use of aspirin; Z90.49 Acquired absence of other specified parts of digestive tract; Z90.89 Acquired absence of other organs; Z88.5 Allergy status to narcotic agent; Z88.7 Allergy status to serum and vaccine
CPT/HCPCS: 99285; 74176; 96374; 96375; 82270; 80076; 80048; 81003; 83690; 85025; 85730; 36415; 96376 ×2; J2405 ×2; J2470 ×2; J1171 ×3; J7040; A4606; A4663

== ENCOUNTER 2024-09-26 19:43 | Emergency (ER) | payer OTHER ==
[2024-09-25] MEDS: MIDAZOLAM HCL 2 MG/2 ML VIAL IV ONE (23:40)
[~2024-09-26] VITALS: Ht 175.3 cm; Wt 57.6 kg
[~2024-09-26 19:43] MED LIST changes: +OXYC10TA49 PO
[2024-09-26] MEDS: IV NORMAL SALINE 1000 ML BAG IV ONE (20:30)
[2024-09-26] MEDS ORDERED: diphenhydrAMINE 50 MG/1 ML VIAL ONE (20:36)
[2024-09-26] MEDS ORDERED: ONDANSETRON 4 MG/2 ML VIAL ONE (20:36)
[2024-09-26] MEDS ORDERED: HYDROMORPHONE 1 MG/1 ML DISP.SYRIN ONE (20:36)
[2024-09-26] MEDS ORDERED: LORAZEPAM 2 MG/1 ML VIAL ONE (20:37)
[2024-09-26 20:38] LABS: BASOPHILS # (AUTO) 0.1 K/UL (0.0-0.2); BASOPHILS % (AUTO) 1.3 % (0.0-2.0); EOSINOPHILS # (AUTO) 0.1 K/uL (0.0-0.7); EOSINOPHILS % (AUTO) 1.9 % (0.0-7.0); HEMATOCRIT 39.2 % (31.2-41.9); LYMPHOCYTES # (AUTO) 2.7 K/uL (0.8-4.8); LYMPHOCYTES % (AUTO) 44.4 % (20.5-51.5); MEAN CORPUSCULAR HGB CONC 36 g/dL (32.3-35.6); MEAN CORPUSCULAR VOLUME 97.8 fL (75.5-95.3); MONOCYTES # (AUTO) 0.6 K/uL (0.1-1.30); MONOCYTES % (AUTO) 10.6 % (0.0-11.0); NEUTROPHILS # (AUTO) 2.5 K/uL (1.8-8.9); NEUTROPHILS % (AUTO) 41.8 % (38.5-71.5); PLATELET COUNT (AUTO) 231 K/uL (179-408); RED BLOOD CELL COUNT(AUTO) 4.01 MIL/uL (3.63-4.92); RED CELL DISTRIBUTION WIDTH 13.1 % (12.3-17.7)
[2024-09-26 20:44] LABS: CALCIUM 8.7 mg/dL (8.5-10.1); CREATININE 0.6 mg/dL (0.6-1.3); POTASSIUM 3.1 mmol/L (3.5-5.1)
[2024-09-26] MEDS: HYDROMORPHONE 1 MG/1 ML DISP.SYRIN IV ONE (20:45)
[2024-09-26] MEDS: diphenhydrAMINE 50 MG/1 ML VIAL IV ONE (20:45)
[2024-09-26] MEDS: LORAZEPAM 2 MG/1 ML VIAL IV ONE (20:45)
[2024-09-26] MEDS: ONDANSETRON 4 MG/2 ML VIAL IV ONE (20:45)
[2024-09-26 20:49] LABS: ALBUMIN 3.4 g/dL (3.4-5.0); BILIRUBIN,DIRECT 0.1 mg/dL (0.0-0.2); BILIRUBIN,TOTAL 0.5 mg/dL (0.2-1.0)
[2024-09-26] MEDS ORDERED: DIAZEPAM 10 MG/2 ML DISP.SYRIN ONE ×2 (21:28→22:11)
[2024-09-26] MEDS: DIAZEPAM 10 MG/2 ML DISP.SYRIN IV ONE ×2 (21:30→22:21)
[2024-09-26] MEDS: POTASSIUM CHLORIDE 50 ML IV ONE (21:40)
[2024-09-26] MEDS ORDERED: MIDAZOLAM HCL 2 MG/2 ML VIAL ONE (22:27)
[2024-09-26] MEDS ORDERED: IV 0.9% SODIUM CHLORID+ 20 KCL 1,000 ML ONE (23:44)
[2024-09-26] MEDS: IV 0.9% SODIUM CHLORID+ 20 KCL 1,000 ML IV ONE (23:45)
[2024-09-27] MEDS ORDERED: HYDROMORPHONE 1 MG/1 ML DISP.SYRIN ONE ×3 (00:29→05:28)
[2024-09-27] MEDS ORDERED: POTASSIUM CHLORIDE 20 MEQ TAB.PRT.SR ONE (00:41)
[2024-09-27] MEDS ORDERED: POTASSIUM BICARBONATE/CIT AC 25 MEQ TABLET.EFF ONE (00:44)
[2024-09-27] MEDS: HYDROMORPHONE 1 MG/1 ML DISP.SYRIN IM ONE ×2 (00:50→05:30)
[2024-09-27] MEDS: HYDROMORPHONE 1 MG/1 ML DISP.SYRIN IV ONE (00:53)
[2024-09-27] MEDS: POTASSIUM BICARBONATE/CIT AC 25 MEQ TABLET.EFF PO ONE ×2 (01:00→01:15)
[2024-09-27 04:12] LABS: *BILIRUBIN,URIN NEGATIVE (NEGATIVE); *BLOOD, URINE NEGATIVE (NEGATIVE); *CLARITY,URINE CLEAR (CLEAR); *COLOR,URINE Other (YELLOW); *KETONES,URINE NEGATIVE (NEGATIVE); *PROTEIN,URINE NEGATIVE (NEGATIVE); *UROBILINOGEN,URINE 0.2 E.U./dl (NORMAL); LEUKOCYTE ESTERASE ,URINE NEGATIVE (NEGATIVE); NITRITE, URINE NEGATIVE (NEGATIVE); UGLUCOSE NEGATIVE (NEGATIVE)
[2024-09-27] MEDS ORDERED: OXYC10TA49 PO (04:30)
[2024-09-27 04:31] LABS: *AMPHETAMINE, URINE NEGATIVE (NEGATIVE); *BARBITURATE, URINE NEGATIVE (NEGATIVE); *BENZODIAZEPINE, URINE POSITIVE (NEGATIVE); *CANNABINOID, URINE POSITIVE (NEGATIVE); *COCCAINE, URINE NEGATIVE (NEGATIVE); *OPIATE, URINE POSITIVE (NEGATIVE); *PHENCYCLIDINE SCREEN,URINE NEGATIVE (NEGATIVE)
[2024-09-27 04:32] LABS: FENTANYL, URINE NEGATIVE (NEGATIVE)
[2024-09-27 05:50] VITALS: BP 151/99; TEMP 208.4; O2SAT 97
== END 2024-09-27 05:35 | disposition home or self-care (01) ==
LOC: ER 19:43
DX: G89.4 Chronic pain syndrome (principal); M54.9 Dorsalgia, unspecified; F10.129 Alcohol abuse with intoxication, unspecified; F17.210 Nicotine dependence, cigarettes, uncomplicated; F32.A Depression, unspecified; F41.9 Anxiety disorder, unspecified; G62.9 Polyneuropathy, unspecified; Z79.82 Long term (current) use of aspirin; Z88.5 Allergy status to narcotic agent; Z88.7 Allergy status to serum and vaccine; Z90.49 Acquired absence of other specified parts of digestive tract; Z86.69 Personal history of other diseases of the nervous system and sense organs; Z86.79 Personal history of other diseases of the circulatory system; Z87.09 Personal history of other diseases of the respiratory system; Z87.19 Personal history of other diseases of the digestive system; Y90.9 Presence of alcohol in blood, level not specified; Y90.8 Blood alcohol level of 240 mg/100 ml or more
CPT/HCPCS: 80076; 80048; 83735; 85025; 36415; 99285; 96361 ×2; 96374; 96375; 96376; 83605 ×2; 80320; 80307; 81003; 96372; J3360 ×2; J1200; J2060; J2250; J2405; J1171 ×4; J7040 ×2; A4606; A4663; G0480

== ENCOUNTER 2024-10-13 18:10 | Emergency (ER) | payer OTHER ==
[~2024-10-13] VITALS: Ht 175.3 cm; Wt 57.6 kg
[2024-10-14] MEDS ORDERED: HYDROMORPHONE HCL 2 MG TABLET ONE ×3 (00:31→03:16)
[2024-10-14] MEDS: HYDROMORPHONE HCL 2 MG TABLET PO ONE ×3 (00:33→03:17)
[2024-10-14 00:49] LABS: BASOPHILS % (AUTO) 0.6 % (0.0-2.0); EOSINOPHILS # (AUTO) 0.1 K/uL (0.0-0.7); EOSINOPHILS % (AUTO) 1.3 % (0.0-7.0); HEMATOCRIT 45.7 % (31.2-41.9); HEMOGLOBIN 16.1 g/dL (10.9-14.3); LYMPHOCYTES # (AUTO) 1.7 K/uL (0.8-4.8); LYMPHOCYTES % (AUTO) 34.2 % (20.5-51.5); MEAN CORPUSCULAR HEMOGLOBIN 34.8 uug (24.7-32.8); MEAN CORPUSCULAR HGB CONC 35 g/dL (32.3-35.6); MEAN CORPUSCULAR VOLUME 99.1 fL (75.5-95.3); MONOCYTES # (AUTO) 0.5 K/uL (0.1-1.30); NEUTROPHILS # (AUTO) 2.6 K/uL (1.8-8.9); NEUTROPHILS % (AUTO) 52.9 % (38.5-71.5); PLATELET COUNT (AUTO) 201 K/uL (179-408); RED BLOOD CELL COUNT(AUTO) 4.61 MIL/uL (3.63-4.92); RED CELL DISTRIBUTION WIDTH 12.9 % (12.3-17.7)
[2024-10-14 01:20] LABS: ALANINE AMINOTRANSFERASE 21 U/L (14-59); ALBUMIN 3.5 g/dL (3.4-5.0); ALKALINE PHOSPHATASE 106 U/L (50-136); ASPARTATE AMINOTRANSFERASE 32 U/L (15-37); BILIRUBIN,DIRECT 0.3 mg/dL (0.0-0.2); BILIRUBIN,TOTAL 0.7 mg/dL (0.2-1.0); CALCIUM 9.3 mg/dL (8.5-10.1); CARBON DIOXIDE 25 mmol/L (21-32); CHLORIDE 99 mmol/L (98-107); CREATININE 0.6 mg/dL (0.6-1.3); GLUCOSE 116 mg/dL (74-106); POTASSIUM 3.3 mmol/L (3.5-5.1); SODIUM SERUM 139 mmol/L (136-145); TOTAL PROTEIN, SERUM 8.5 g/dL (6.4-8.2); UREA NITROGEN, BLOOD 1 mg/dL (7-18)
[2024-10-14] MEDS ORDERED: ONDANSETRON ODT 4 MG TAB.RAPDIS ONE (01:38)
[2024-10-14] MEDS: ONDANSETRON ODT 4 MG TAB.RAPDIS SL ONE (01:40)
[2024-10-14 03:26] VITALS: BP 138/88; TEMP 97.8; O2SAT 97
== END 2024-10-14 03:26 | disposition home or self-care (01) ==
LOC: ER 18:11
DX: R55 Syncope and collapse (principal); G89.29 Other chronic pain; F11.20 Opioid dependence, uncomplicated; F17.210 Nicotine dependence, cigarettes, uncomplicated; R51.9 Headache, unspecified; F41.9 Anxiety disorder, unspecified; Z79.82 Long term (current) use of aspirin; Z90.49 Acquired absence of other specified parts of digestive tract; Z88.5 Allergy status to narcotic agent; Z88.7 Allergy status to serum and vaccine
CPT/HCPCS: 36415; 70450; 71045; 72100; 72170; 73020; 73502; 84484; 85025; A4606; A4663; Q0162

== ENCOUNTER 2024-10-15 22:04 | Emergency (ER) | payer OTHER ==
[~2024-10-15] VITALS: Ht 175.3 cm; Wt 45.4 kg
[2024-10-15] MEDS ORDERED: HYDROMORPHONE HCL 2 MG TABLET ONE (23:15)
[2024-10-15] MEDS: HYDROMORPHONE HCL 2 MG TABLET PO ONE (23:18)
[2024-10-16] MEDS ORDERED: HYDROMORPHONE HCL 2 MG TABLET ONE (00:21)
[2024-10-16] MEDS: HYDROMORPHONE HCL 2 MG TABLET PO ONE (00:24)
[2024-10-16 00:40] VITALS: BP 128/82; TEMP 98; O2SAT 98
== END 2024-10-16 00:40 | disposition home or self-care (01) ==
LOC: ER 22:07
DX: S42.214A Unspecified nondisplaced fracture of surgical neck of right humerus, initial encounter for closed fracture (principal); S32.008A Other fracture of unspecified lumbar vertebra, initial encounter for closed fracture; F17.210 Nicotine dependence, cigarettes, uncomplicated; F41.9 Anxiety disorder, unspecified; Z79.82 Long term (current) use of aspirin; Z90.49 Acquired absence of other specified parts of digestive tract; Z88.5 Allergy status to narcotic agent; Z88.7 Allergy status to serum and vaccine; W18.39XA Other fall on same level, initial encounter; Y93.89 Activity, other specified; Y92.89 Other specified places as the place of occurrence of the external cause; Y99.8 Other external cause status
CPT/HCPCS: A4606; A4663

== ENCOUNTER 2024-10-19 21:27 | Inpatient (IN) | payer OTHER ==
[~2024-10-19] VITALS: Ht 175.3 cm; Wt 56.7 kg
[2024-10-19] MEDS ORDERED: HYDROMORPHONE HCL 2 MG TABLET ONE ×2 (22:10→23:51)
[2024-10-19] MEDS: HYDROMORPHONE HCL 2 MG TABLET PO ONE ×2 (22:15→23:50)
[2024-10-19] MEDS: IV NORMAL SALINE 1000 ML BAG IV ONE (23:30)
[2024-10-20 00:08] LABS: BASOPHILS % (AUTO) 0.8 % (0.0-2.0); EOSINOPHILS # (AUTO) 0.1 K/uL (0.0-0.7); EOSINOPHILS % (AUTO) 2.8 % (0.0-7.0); HEMATOCRIT 38.6 % (31.2-41.9); HEMOGLOBIN 13.9 g/dL (10.9-14.3); LYMPHOCYTES # (AUTO) 1.8 K/uL (0.8-4.8); LYMPHOCYTES % (AUTO) 41.3 % (20.5-51.5); MEAN CORPUSCULAR HEMOGLOBIN 35.2 uug (24.7-32.8); MEAN CORPUSCULAR HGB CONC 36 g/dL (32.3-35.6); MEAN CORPUSCULAR VOLUME 97.7 fL (75.5-95.3); MONOCYTES # (AUTO) 0.6 K/uL (0.1-1.30); MONOCYTES % (AUTO) 14.5 % (0.0-11.0); NEUTROPHILS # (AUTO) 1.7 K/uL (1.8-8.9); NEUTROPHILS % (AUTO) 40.6 % (38.5-71.5); PLATELET COUNT (AUTO) 183 K/uL (179-408); RED BLOOD CELL COUNT(AUTO) 3.95 MIL/uL (3.63-4.92); RED CELL DISTRIBUTION WIDTH 13.3 % (12.3-17.7); WHITE BLOOD COUNT (AUTO) 4.2 K/uL (3.8-11.8)
[2024-10-20 00:27] LABS: ALBUMIN 3.1 g/dL (3.4-5.0); BILIRUBIN,DIRECT 0.2 mg/dL (0.0-0.2); BILIRUBIN,TOTAL 0.6 mg/dL (0.2-1.0); CREATININE 0.6 mg/dL (0.6-1.3); POTASSIUM 3.1 mmol/L (3.5-5.1); TOTAL PROTEIN, SERUM 7.4 g/dL (6.4-8.2)
[2024-10-20] MEDS ORDERED: ACETAMINOPHEN 325 MG TABLET PO PRN (01:00)
[2024-10-20] MEDS ORDERED: ONDANSETRON 4 MG/2 ML VIAL IV PRN (01:00)
[2024-10-20 01:03] VITALS: BP 164/88; TEMP 98; O2SAT 95
[2024-10-20] MEDS: HYDROMORPHONE HCL 2 MG TABLET PO ONE (04:19)
[2024-10-20] MEDS: CLONIDINE HCL 0.1 MG TABLET PO ONE (05:28)
[2024-10-20 06:29] VITALS: BP 198/99; TEMP 97.9; O2SAT 97
[2024-10-20] MEDS: PANTOPRAZOLE SODIUM 40 MG TABLET.DR PO SCH (06:44)
[2024-10-20 06:56] LABS: EOSINOPHILS # (AUTO) 0.1 K/uL (0.0-0.7); EOSINOPHILS % (AUTO) 3.6 % (0.0-7.0); HEMATOCRIT 36.3 % (31.2-41.9); LYMPHOCYTES # (AUTO) 1.5 K/uL (0.8-4.8); LYMPHOCYTES % (AUTO) 36.3 % (20.5-51.5); MEAN CORPUSCULAR HEMOGLOBIN 35.1 uug (24.7-32.8); MEAN CORPUSCULAR HGB CONC 36 g/dL (32.3-35.6); MONOCYTES # (AUTO) 0.7 K/uL (0.1-1.30); MONOCYTES % (AUTO) 17.4 % (0.0-11.0); NEUTROPHILS # (AUTO) 1.7 K/uL (1.8-8.9); NEUTROPHILS % (AUTO) 41.7 % (38.5-71.5); PLATELET COUNT (AUTO) 159 K/uL (179-408); RED CELL DISTRIBUTION WIDTH 13.4 % (12.3-17.7)
[2024-10-20 07:10] LABS: DIFFERENTIAL COMMENT 1
[2024-10-20 07:23] LABS: ALANINE AMINOTRANSFERASE 23 U/L (14-59); ALBUMIN 2.8 g/dL (3.4-5.0); ALKALINE PHOSPHATASE 85 U/L (50-136); ASPARTATE AMINOTRANSFERASE 33 U/L (15-37); BILIRUBIN,TOTAL 0.7 mg/dL (0.2-1.0); CALCIUM 8.2 mg/dL (8.5-10.1); CARBON DIOXIDE 30 mmol/L (21-32); CHLORIDE 102 mmol/L (98-107); CREATININE 0.8 mg/dL (0.6-1.3); GLUCOSE 130 mg/dL (74-106); MAGNESIUM 1.7 mg/dL (1.8-2.4); PHOSPHOROUS 3.8 mg/dL (2.5-4.9); POTASSIUM 3.6 mmol/L (3.5-5.1); SODIUM SERUM 138 mmol/L (136-145); TOTAL PROTEIN, SERUM 6.8 g/dL (6.4-8.2); UREA NITROGEN, BLOOD 1 mg/dL (7-18)
[2024-10-20 10:50] LABS: BASOPHILS % (MANUAL) 1 % (0-2); EOSINOPHILS % (MANUAL) 4 % (0-8); LYMPHOCYTES % (MANUAL) 36 % (20-40); MONOCYTES % (MANUAL) 17 % (2-10); NEUTROPHILS % (MANUAL) 42 % (42-75); PLATELET ESTIMATE DECREASED
[2024-10-20 11:31] VITALS: BP 150/81; TEMP 97.8; O2SAT 97
[2024-10-20 12:00] LABS: C-REACTIVE PROTEIN < 0.20 mg/dL (0.00-0.30)
[2024-10-20] MEDS: MAGNESIUM OXIDE 400 MG TABLET PO ONE (12:35)
[2024-10-20] MEDS: HYDROMORPHONE 1 MG/1 ML DISP.SYRIN IV ONE (12:44)
[2024-10-20] MEDS: NICOTINE 21 MG/24HR PATCH TD SCH (12:44)
[2024-10-20] MEDS: PREGABALIN 50 MG CAPSULE PO SCH (12:55)
[2024-10-20] MEDS: METHOCARBAMOL 750 MG TABLET PO SCH (13:42)
[2024-10-20 15:41] VITALS: BP 101/46; TEMP 98.1; O2SAT 96
[2024-10-20] MEDS: OXYCODONE HCL 5 MG TABLET PO PRN (15:55)
[2024-10-20 19:43] VITALS: BP 133/74; TEMP 98.3; O2SAT 97
[2024-10-21 06:19] VITALS: BP 150/76; TEMP 98.3; O2SAT 97
[2024-10-21 07:29] LABS: CALCIUM 8.1 mg/dL (8.5-10.1); CREATININE 0.9 mg/dL (0.6-1.3); POTASSIUM 3.7 mmol/L (3.5-5.1)
[2024-10-21] MEDS: MULTIVIT, IRON, MIN NO. 8, FA TABLET PO SCH (08:53)
[2024-10-21] MEDS ORDERED: Medication Not On Formulary EA (Multivitamins W-Minerals (Multivitamin With Minerals) 1 PO SCH (09:00)
[2024-10-21] MEDS ORDERED: ASPIRIN 325 MG TABLET PO SCH (09:00)
[2024-10-21] MEDS ORDERED: AMLODIPINE 10 MG TABLET PO SCH (09:00)
[2024-10-21] MEDS ORDERED: METH-806 PO (10:52)
[2024-10-21] MEDS ORDERED: OXYC15TA2 PO (10:52)
[2024-10-21] MEDS ORDERED: PREG75CA PO (10:52)
[2024-10-21 11:33] VITALS: BP 155/80; TEMP 98.3; O2SAT 97
[2024-10-21] MEDS: HYDROMORPHONE 1 MG/1 ML DISP.SYRIN IV ONE (13:19)
[2024-10-21 13:30] VITALS: BP 149/81; TEMP 97.9; O2SAT 98
[2024-10-21 15:26] VITALS: BP 149/82; TEMP 98.2; O2SAT 96
[2024-10-21] MEDS ORDERED: MULT-213 PO (17:37)
[2024-10-21] MEDS ORDERED: NICO-671 TP (17:37)
== END 2024-10-21 15:15 | disposition home or self-care (01) | DRG 347 ==
LOC: ER 21:27 → MEDSURG3 23:00
PROVIDERS: ADMIT Internal Medicine; ATTEND Nurse Practitioner Family
DX: M48.56XA Collapsed vertebra, not elsewhere classified, lumbar region, initial encounter for fracture (principal); E44.1 Mild protein-calorie malnutrition; M25.551 Pain in right hip; M48.56XD Collapsed vertebra, not elsewhere classified, lumbar region, subsequent encounter for fracture with routine healing; E87.6 Hypokalemia; E78.5 Hyperlipidemia, unspecified; G89.29 Other chronic pain; F41.9 Anxiety disorder, unspecified; M15.9 Polyosteoarthritis, unspecified; B19.20 Unspecified viral hepatitis C without hepatic coma; E83.42 Hypomagnesemia; I10 Essential (primary) hypertension; M51.17 Intervertebral disc disorders with radiculopathy, lumbosacral region; T40.2X6A Underdosing of other opioids, initial encounter; Z91.148 Patient's other noncompliance with medication regimen for other reason; Y92.89 Other specified places as the place of occurrence of the external cause; Z86.19 Personal history of other infectious and parasitic diseases; Z79.82 Long term (current) use of aspirin; Z79.891 Long term (current) use of opiate analgesic; Z88.5 Allergy status to narcotic agent; Z96.641 Presence of right artificial hip joint; F17.210 Nicotine dependence, cigarettes, uncomplicated; E88.09 Other disorders of plasma-protein metabolism, not elsewhere classified; F32.A Depression, unspecified; F64.0 Transsexualism
CPT/HCPCS: 36415; 70030-TC; 83735; 84100; 85025; 86140; 90937; A4606; A4663; G0378; J1171; J7040

== ENCOUNTER 2024-11-11 19:02 | Emergency (ER) | payer OTHER ==
[~2024-11-11 19:02] MED LIST changes: -ACET-3117 PO; -ACID1TAB4 PO; -ALPR2TAB7 PO; -AMLO10TA59 PO; -ASPI-612 PO; -BISA10SU61 RC; -CIPR500S2 PO; -DOCU100T2 PO; -ERGO800011 PO; -GABA800T11 PO; -HYDR-3980 PO; -HYDR2TAB4 PO; -HYDR4TAB4 PO; +METH-806 PO; -METR500T PO; +NICO-671 TP; -ONDA4TAB5 PO; -OXYC10TA49 PO; +OXYC15TA2 PO; -OXYC1TAB12 PO; -OXYC20TA42 PO; +PREG75CA PO; -TRIA0.2585 PO
== END 2024-11-11 20:00 | disposition left against medical advice (07) ==
LOC: ER 19:08
DX: R52 Pain, unspecified (principal); Z53.21 Procedure and treatment not carried out due to patient leaving prior to being seen by health care provider

== ENCOUNTER 2024-11-13 16:46 | Emergency (ER) | payer OTHER ==
[~2024-11-13] VITALS: Ht 175.3 cm; Wt 56.7 kg
[2024-11-13 17:07] VITALS: O2SAT 97
== END 2024-11-13 19:14 | disposition left against medical advice (07) ==
LOC: ER 16:46
DX: M25.559 Pain in unspecified hip (principal); Z53.21 Procedure and treatment not carried out due to patient leaving prior to being seen by health care provider
CPT/HCPCS: A4606; A4663

== ENCOUNTER 2024-11-24 13:06 | Emergency (ER) | payer OTHER ==
[~2024-11-24] VITALS: Ht 175.3 cm; Wt 56.7 kg
[2024-11-24] MEDS ORDERED: PANTOPRAZOLE SODIUM 40 MG VIAL ONE (17:07)
[2024-11-24 17:22] LABS: HEMATOCRIT 43.2 % (31.2-41.9); HEMOGLOBIN 15.2 g/dL (10.9-14.3); LYMPHOCYTES % (AUTO) 42.6 % (20.5-51.5); MEAN CORPUSCULAR HEMOGLOBIN 33.9 uug (24.7-32.8); MEAN CORPUSCULAR HGB CONC 35 g/dL (32.3-35.6); MEAN CORPUSCULAR VOLUME 96.4 fL (75.5-95.3); MONOCYTES # (AUTO) 0.7 K/uL (0.1-1.30); MONOCYTES % (AUTO) 14.6 % (0.0-11.0); NEUTROPHILS # (AUTO) 1.9 K/uL (1.8-8.9); NEUTROPHILS % (AUTO) 40.8 % (38.5-71.5); PLATELET COUNT (AUTO) 184 K/uL (179-408); RED BLOOD CELL COUNT(AUTO) 4.49 MIL/uL (3.63-4.92); RED CELL DISTRIBUTION WIDTH 13.5 % (12.3-17.7); WHITE BLOOD COUNT (AUTO) 4.8 K/uL (3.8-11.8)
[2024-11-24] MEDS: IV NORMAL SALINE 1000 ML BAG IV ONE (17:28)
[2024-11-24 17:30] LABS: CALCIUM 8.5 mg/dL (8.5-10.1); CARBON DIOXIDE 26 mmol/L (21-32); CHLORIDE 102 mmol/L (98-107); CREATININE 0.6 mg/dL (0.6-1.3); GLUCOSE 111 mg/dL (74-106); SODIUM SERUM 142 mmol/L (136-145); UREA NITROGEN, BLOOD 2 mg/dL (7-18)
[2024-11-24] MEDS ORDERED: diphenhydrAMINE 50 MG/1 ML VIAL ONE (17:30)
[2024-11-24] MEDS ORDERED: ONDANSETRON 4 MG/2 ML VIAL ONE (17:30)
[2024-11-24] MEDS ORDERED: HYDROMORPHONE 1 MG/1 ML DISP.SYRIN ONE ×2 (17:31→21:15)
[2024-11-24 17:32] LABS: POTASSIUM 5.8 mmol/L (3.5-5.1)
[2024-11-24] MEDS: diphenhydrAMINE 50 MG/1 ML VIAL IV ONE (17:34)
[2024-11-24 17:39] LABS: DIFFERENTIAL COMMENT 1
[2024-11-24] MEDS: ONDANSETRON 4 MG/2 ML VIAL IV ONE (17:43)
[2024-11-24] MEDS: HYDROMORPHONE 1 MG/1 ML DISP.SYRIN IV ONE (17:50)
[2024-11-24 18:01] LABS: ALANINE AMINOTRANSFERASE 34 U/L (14-59); ALBUMIN 3.3 g/dL (3.4-5.0); ALKALINE PHOSPHATASE 100 U/L (50-136); ASPARTATE AMINOTRANSFERASE 89 U/L (15-37); BILIRUBIN,DIRECT < 0.1 mg/dL (0.0-0.2); BILIRUBIN,TOTAL 0.5 mg/dL (0.2-1.0); LIPASE < 10 U/L (16-77); TOTAL PROTEIN, SERUM 8.5 g/dL (6.4-8.2)
[2024-11-24 20:45] LABS: POTASSIUM 3.2 mmol/L (3.5-5.1)
[2024-11-24] MEDS ORDERED: ONDA4TAB5 PO (21:17)
[2024-11-24 21:20] LABS: *AMPHETAMINE, URINE NEGATIVE (NEGATIVE); *BARBITURATE, URINE NEGATIVE (NEGATIVE); *BENZODIAZEPINE, URINE NEGATIVE (NEGATIVE); *CANNABINOID, URINE NEGATIVE (NEGATIVE); *COCCAINE, URINE NEGATIVE (NEGATIVE); *OPIATE, URINE POSITIVE (NEGATIVE); *PHENCYCLIDINE SCREEN,URINE NEGATIVE (NEGATIVE); FENTANYL, URINE NEGATIVE (NEGATIVE)
[2024-11-24] MEDS: HYDROMORPHONE HCL 2 MG TABLET PO ONE (21:20)
[2024-11-24] MEDS ORDERED: POTASSIUM CHLORIDE 20 MEQ TAB.PRT.SR ONE (21:22)
[2024-11-24] MEDS: POTASSIUM CHLORIDE 20 MEQ TAB.PRT.SR PO ONE (21:23)
[2024-11-24 21:44] VITALS: BP 131/71; TEMP 98; O2SAT 97
== END 2024-11-24 21:45 | disposition home or self-care (01) ==
LOC: ER 13:06
DX: G89.29 Other chronic pain (principal); F11.23 Opioid dependence with withdrawal; R11.2 Nausea with vomiting, unspecified; R19.7 Diarrhea, unspecified; E78.5 Hyperlipidemia, unspecified; F17.210 Nicotine dependence, cigarettes, uncomplicated; Z79.899 Other long term (current) drug therapy; Z86.19 Personal history of other infectious and parasitic diseases; Z88.5 Allergy status to narcotic agent; Z88.7 Allergy status to serum and vaccine; Z90.49 Acquired absence of other specified parts of digestive tract; Z86.69 Personal history of other diseases of the nervous system and sense organs; Z86.79 Personal history of other diseases of the circulatory system; Z87.09 Personal history of other diseases of the respiratory system; Z86.59 Personal history of other mental and behavioral disorders
CPT/HCPCS: 80076; 80048; 83690; 84132; 85025; 85730; 84484; 36415; 73551; 99284; 96361; 96374; 96375; 80320; 80307; J1200; J2405; J2470; J1171 ×2; J7040; A4606; A4663; G0480

== ENCOUNTER 2024-11-25 19:46 | Emergency (ER) | payer OTHER ==
[~2024-11-25] VITALS: Ht 170.2 cm; Wt 63.5 kg
[~2024-11-25 19:46] MED LIST changes: +ONDA4TAB5 PO
[2024-11-25 20:29] LABS: EOSINOPHILS # (AUTO) 0.1 K/uL (0.0-0.7); EOSINOPHILS % (AUTO) 2.5 % (0.0-7.0); HEMATOCRIT 43.4 % (31.2-41.9); HEMOGLOBIN 15.4 g/dL (10.9-14.3); LYMPHOCYTES # (AUTO) 1.8 K/uL (0.8-4.8); LYMPHOCYTES % (AUTO) 47.6 % (20.5-51.5); MEAN CORPUSCULAR HEMOGLOBIN 34.3 uug (24.7-32.8); MEAN CORPUSCULAR HGB CONC 36 g/dL (32.3-35.6); MEAN CORPUSCULAR VOLUME 96.7 fL (75.5-95.3); MONOCYTES # (AUTO) 0.4 K/uL (0.1-1.30); MONOCYTES % (AUTO) 11.8 % (0.0-11.0); NEUTROPHILS # (AUTO) 1.4 K/uL (1.8-8.9); NEUTROPHILS % (AUTO) 37.1 % (38.5-71.5); PLATELET COUNT (AUTO) 183 K/uL (179-408); RED BLOOD CELL COUNT(AUTO) 4.49 MIL/uL (3.63-4.92); RED CELL DISTRIBUTION WIDTH 13.6 % (12.3-17.7); WHITE BLOOD COUNT (AUTO) 3.8 K/uL (3.8-11.8)
[2024-11-25] MEDS: IV NS 1000 ML 1,000 ML IV ONE (20:32)
[2024-11-25 20:36] LABS: DIFFERENTIAL COMMENT 1
[2024-11-25 20:37] LABS: CALCIUM 8.2 mg/dL (8.5-10.1); CREATININE 0.6 mg/dL (0.6-1.3); POTASSIUM 3.2 mmol/L (3.5-5.1)
[2024-11-25 20:43] LABS: ALBUMIN 3.3 g/dL (3.4-5.0); BILIRUBIN,TOTAL 0.4 mg/dL (0.2-1.0); TOTAL PROTEIN, SERUM 8.2 g/dL (6.4-8.2)
[2024-11-25] MEDS ORDERED: POTASSIUM CHLORIDE 20 MEQ TAB.PRT.SR ONE (20:58)
[2024-11-25] MEDS: POTASSIUM CHLORIDE 20 MEQ TAB.PRT.SR PO ONE (21:01)
[2024-11-25 21:20] VITALS: BP 130/70
== END 2024-11-25 21:20 | disposition home or self-care (01) ==
LOC: ER 19:46
DX: F10.129 Alcohol abuse with intoxication, unspecified (principal); F17.210 Nicotine dependence, cigarettes, uncomplicated; G89.4 Chronic pain syndrome; Z79.899 Other long term (current) drug therapy; Z86.19 Personal history of other infectious and parasitic diseases; Z88.5 Allergy status to narcotic agent; Z88.7 Allergy status to serum and vaccine; Z90.49 Acquired absence of other specified parts of digestive tract
CPT/HCPCS: 80053; 85025; 36415; 99283; 96360; 80320; J7040; A4606; A4663; G0480

== ENCOUNTER 2024-12-15 14:50 | Emergency (ER) | payer OTHER ==
[~2024-12-15] VITALS: Ht 175.3 cm; Wt 49.9 kg
[2024-12-15] MEDS ORDERED: HYDROMORPHONE HCL 2 MG TABLET ONE (17:59)
[2024-12-15] MEDS: HYDROMORPHONE HCL 2 MG TABLET PO ONE (18:01)
[2024-12-15 18:37] LABS: BASOPHILS % (AUTO) 0.8 % (0.0-2.0); EOSINOPHILS # (AUTO) 0.1 K/uL (0.0-0.7); HEMATOCRIT 38.5 % (31.2-41.9); HEMOGLOBIN 13.4 g/dL (10.9-14.3); LYMPHOCYTES # (AUTO) 1.3 K/uL (0.8-4.8); LYMPHOCYTES % (AUTO) 22.4 % (20.5-51.5); MEAN CORPUSCULAR HEMOGLOBIN 32.6 uug (24.7-32.8); MEAN CORPUSCULAR HGB CONC 35 g/dL (32.3-35.6); MEAN CORPUSCULAR VOLUME 93.9 fL (75.5-95.3); MONOCYTES # (AUTO) 0.9 K/uL (0.1-1.30); MONOCYTES % (AUTO) 16.4 % (0.0-11.0); NEUTROPHILS # (AUTO) 3.3 K/uL (1.8-8.9); NEUTROPHILS % (AUTO) 58.4 % (38.5-71.5); PLATELET COUNT (AUTO) 245 K/uL (179-408); RED CELL DISTRIBUTION WIDTH 13.3 % (12.3-17.7); WHITE BLOOD COUNT (AUTO) 5.6 K/uL (3.8-11.8)
[2024-12-15 18:50] LABS: DIFFERENTIAL COMMENT 1
[2024-12-15 18:54] LABS: CALCIUM 9.2 mg/dL (8.5-10.1); CARBON DIOXIDE 28 mmol/L (21-32); CHLORIDE 102 mmol/L (98-107); CREATININE 0.5 mg/dL (0.6-1.3); GLUCOSE 108 mg/dL (74-106); POTASSIUM 4.6 mmol/L (3.5-5.1); SODIUM SERUM 139 mmol/L (136-145); UREA NITROGEN, BLOOD 4 mg/dL (7-18)
[2024-12-15 19:00] LABS: ALANINE AMINOTRANSFERASE 53 U/L (14-59); ALBUMIN 3.1 g/dL (3.4-5.0); ALKALINE PHOSPHATASE 117 U/L (50-136); ASPARTATE AMINOTRANSFERASE 110 U/L (15-37); BILIRUBIN,DIRECT < 0.1 mg/dL (0.0-0.2); ETHANOL < 3 MG/DL (0-10); LIPASE 23 U/L (16-77); TOTAL PROTEIN, SERUM 8.6 g/dL (6.4-8.2)
[2024-12-15 19:01] LABS: BILIRUBIN,TOTAL 0.8 mg/dL (0.2-1.0)
[2024-12-15] MEDS ORDERED: OXYC10TA49 PO (19:49)
[2024-12-15] MEDS ORDERED: OXYCODONE HCL 5 MG TABLET ONE (20:01)
[2024-12-15] MEDS: OXYCODONE HCL 5 MG TABLET PO ONE (20:31)
[2024-12-15 21:03] VITALS: BP 158/0; TEMP 95.6; O2SAT 100
[2024-12-15 21:12] LABS: ANISOCYTOSIS 1+; LYMPHOCYTES % (MANUAL) 26 % (20-40); MONOCYTES % (MANUAL) 12 % (2-10); NEUTROPHILS % (MANUAL) 62 % (42-75); PLATELET ESTIMATE ADEQUATE
== END 2024-12-15 21:38 | disposition home or self-care (01) ==
LOC: ER 14:50
DX: S22.080A Wedge compression fracture of T11-T12 vertebra, initial encounter for closed fracture (principal); M54.50 Low back pain, unspecified; R10.9 Unspecified abdominal pain; E78.5 Hyperlipidemia, unspecified; F17.210 Nicotine dependence, cigarettes, uncomplicated; G89.29 Other chronic pain; I11.9 Hypertensive heart disease without heart failure; K85.90 Acute pancreatitis without necrosis or infection, unspecified; Z79.891 Long term (current) use of opiate analgesic; Z79.899 Other long term (current) drug therapy; Z86.19 Personal history of other infectious and parasitic diseases; Z90.49 Acquired absence of other specified parts of digestive tract; Z88.5 Allergy status to narcotic agent; Z88.7 Allergy status to serum and vaccine; W01.0XXA Fall on same level from slipping, tripping and stumbling without subsequent striking against object, initial encounter; Y93.89 Activity, other specified; Y92.89 Other specified places as the place of occurrence of the external cause; Y99.8 Other external cause status
CPT/HCPCS: 36415; 70030-TC; 83690; 85025; A4606; A4663; G0480

== ENCOUNTER 2025-01-26 21:47 | Emergency (ER) | payer OTHER ==
[~2025-01-26 21:47] MED LIST changes: +HYDR-3980 PO; +OXYC10TA49 PO; +OXYC1TAB12 PO
== END 2025-01-26 23:05 | disposition left against medical advice (07) ==
LOC: ER 21:49
DX: M79.10 Myalgia, unspecified site (principal); Z53.21 Procedure and treatment not carried out due to patient leaving prior to being seen by health care provider

== ENCOUNTER 2025-05-17 13:02 | Inpatient (IN) | payer OTHER ==
[~2025-05-17] VITALS: Ht 175.3 cm; Wt 56.7 kg
[2025-05-17] MEDS: IV NORMAL SALINE 1000 ML BAG IV ONE ×2 (13:18→15:39)
[2025-05-17] MEDS: FAMOTIDINE. 20 MG/2 ML VIAL IV ONE (13:26)
[2025-05-17] MEDS ORDERED: LIDOCAINE VISCUS 2% 15 ML UDC ONE (13:26)
[2025-05-17] MEDS ORDERED: ONDANSETRON 4 MG/2 ML VIAL ONE (13:26)
[2025-05-17] MEDS ORDERED: FAMOTIDINE. 20 MG/2 ML VIAL IV ONE (13:27)
[2025-05-17] MEDS ORDERED: MAG HYDROX/AL HYDROX/SIMETH 30 ML LIQUID UDC ONE (13:27)
[2025-05-17] MEDS: ONDANSETRON 4 MG/2 ML VIAL IV ONE (13:28)
[2025-05-17 13:36] LABS: PLATELET COUNT (AUTO) 206 K/uL (179-408); RED BLOOD CELL COUNT(AUTO) 4.80 MIL/uL (3.63-4.92); RED CELL DISTRIBUTION WIDTH 14.7 % (12.3-17.7); WHITE BLOOD COUNT (AUTO) 5.2 K/uL (3.8-11.8)
[2025-05-17] MEDS ORDERED: HYDROMORPHONE 1 MG/1 ML DISP.SYRIN ONE ×2 (13:48→15:36)
[2025-05-17] MEDS: HYDROMORPHONE 1 MG/1 ML DISP.SYRIN IV ONE ×2 (13:51→15:39)
[2025-05-17 14:04] LABS: CREATININE 0.5 mg/dL (0.6-1.3); SODIUM SERUM 135.0 mmol/L (136-145); UREA NITROGEN, BLOOD 9.0 mg/dL (7-18)
[2025-05-17] MEDS: MAG HYDROX/AL HYDROX/SIMETH 30 ML LIQUID UDC PO ONE (14:09)
[2025-05-17] MEDS: LIDOCAINE VISCUS 2% 15 ML UDC MM ONE (14:09)
[2025-05-17 14:10] LABS: ASPARTATE AMINOTRANSFERASE 102.0 U/L (15-37); TOTAL PROTEIN, SERUM 8.3 g/dL (6.4-8.2)
[2025-05-17 15:20] LABS: ETHANOL 211.0 MG/DL (0-10)
[2025-05-17 15:39] LABS: *BILIRUBIN,URIN NEGATIVE (NEGATIVE); *BLOOD, URINE NEGATIVE (NEGATIVE); *CLARITY,URINE CLEAR (CLEAR); *COLOR,URINE YELLOW (YELLOW); *KETONES,URINE NEGATIVE (NEGATIVE); *PROTEIN,URINE NEGATIVE (NEGATIVE); *UROBILINOGEN,URINE 0.2 E.U./dl (NORMAL); LEUKOCYTE ESTERASE ,URINE NEGATIVE (NEGATIVE); NITRITE, URINE NEGATIVE (NEGATIVE); UGLUCOSE NEGATIVE (NEGATIVE)
[2025-05-17 15:48] LABS: *URINE HCG, QUAL NEGATIVE (NEGATIVE)
[2025-05-17 16:52] VITALS: BP 197/107; TEMP 98.2; O2SAT 97
[2025-05-17] MEDS ORDERED: LORAZEPAM 2 MG/1 ML VIAL IV PRN (17:15)
[2025-05-17] MEDS ORDERED: ACETAMINOPHEN 650 MG SUPP.RECT RC PRN (17:15)
[2025-05-17] MEDS: POTASSIUM CHLORIDE 20 MEQ in IV D5 1/2 NS 1000 ML 1,000 ML IV PRN (18:09)
[2025-05-17] MEDS: HYDROMORPHONE 1 MG/1 ML DISP.SYRIN IV PRN (18:17)
[2025-05-17] MEDS: ENALAPRILAT DIHYDRATE 1.25 MG/1 ML VIAL IV PRN (18:19)
[2025-05-17 19:00] VITALS: BP 167/98; TEMP 97.8; O2SAT 98
[2025-05-17] MEDS: ONDANSETRON 4 MG/2 ML VIAL IV PRN (21:10)
[2025-05-18] VITALS (9 sets, daily range): BP systolic 111–185; BP diastolic 75–108; TEMP 97.6–99; O2SAT 93–100
[2025-05-18] MEDS: NICOTINE 14 MG/24HR PATCH TD SCH (08:14)
[2025-05-18] MEDS: PANTOPRAZOLE SODIUM 40 MG VIAL IV SCH (08:14)
[2025-05-18] MEDS ORDERED: NICOTINE 21 MG/24HR PATCH TD SCH (09:00)
[2025-05-18 09:33] LABS: PLATELET COUNT (AUTO) 170 K/uL (179-408); RED BLOOD CELL COUNT(AUTO) 4.70 MIL/uL (3.63-4.92); RED CELL DISTRIBUTION WIDTH 14.1 % (12.3-17.7); WHITE BLOOD COUNT (AUTO) 11.2 K/uL (3.8-11.8)
[2025-05-18 09:52] LABS: ASPARTATE AMINOTRANSFERASE 85 U/L (15-37); CREATININE 0.6 mg/dL (0.6-1.3); SODIUM SERUM 140 mmol/L (136-145); TOTAL PROTEIN, SERUM 6.7 g/dL (6.4-8.2); UREA NITROGEN, BLOOD 7 mg/dL (7-18)
[2025-05-18] MEDS ORDERED: HYDROMORPHONE 1 MG/1 ML DISP.SYRIN IV PRN (11:00)
[2025-05-18] MEDS: HYDROMORPHONE 2 MG/1 ML DISP.SYRIN IV PRN (13:12)
[2025-05-19] VITALS (9 sets, daily range): BP systolic 141–175; BP diastolic 85–97; TEMP 98.2–99.1; O2SAT 94–100
[2025-05-19 06:51] LABS: PLATELET COUNT (AUTO) 111 K/uL (179-408); RED BLOOD CELL COUNT(AUTO) 4.14 MIL/uL (3.63-4.92); RED CELL DISTRIBUTION WIDTH 14.1 % (12.3-17.7); WHITE BLOOD COUNT (AUTO) 11.8 K/uL (3.8-11.8)
[2025-05-19 07:10] LABS: ASPARTATE AMINOTRANSFERASE 46.0 U/L (15-37); CREATININE 0.5 mg/dL (0.6-1.3); SODIUM SERUM 137.0 mmol/L (136-145); TOTAL PROTEIN, SERUM 6.3 g/dL (6.4-8.2); UREA NITROGEN, BLOOD 8.0 mg/dL (7-18)
[2025-05-19] MEDS: THIAMINE HCL 100 MG TABLET PO SCH (08:44)
[2025-05-19] MEDS: FOLIC ACID 1 MG TABLET PO SCH (08:44)
[2025-05-19] MEDS ORDERED: LOPERAMIDE HCL 2 MG CAPSULE PO PRN (09:30)
[2025-05-19] MEDS: MAGNESIUM SULFATE/D5W 100 ML IV SCH (09:39)
[2025-05-19] MEDS: TAMSULOSIN HCL 0.4 MG CAP.SR.24H PO SCH (21:40)
[2025-05-19] MEDS: LORAZEPAM 0.5 MG TABLET PO PRN (21:54)
[2025-05-20 05:06] VITALS: BP 132/79; TEMP 98.2; O2SAT 98
[2025-05-20 07:35] VITALS: BP 142/73; TEMP 97.7; O2SAT 94
[2025-05-20 07:56] LABS: CREATININE 0.5 mg/dL (0.6-1.3); SODIUM SERUM 133.0 mmol/L (136-145); UREA NITROGEN, BLOOD 6.0 mg/dL (7-18)
[2025-05-20 07:57] LABS: PLATELET COUNT (AUTO) 96 K/uL (179-408); RED BLOOD CELL COUNT(AUTO) 3.62 MIL/uL (3.63-4.92); RED CELL DISTRIBUTION WIDTH 13.8 % (12.3-17.7); WHITE BLOOD COUNT (AUTO) 7.9 K/uL (3.8-11.8)
[2025-05-20 14:02] LABS: LYMPHOCYTES % (MANUAL) 15 % (20-40); MONOCYTES % (MANUAL) 8 % (2-10); NEUTROPHILS % (MANUAL) 77 % (42-75)
[2025-05-20 14:04] LABS: PLATELET ESTIMATE DECREASED
== END 2025-05-20 09:40 | disposition left against medical advice (07) | DRG 282 ==
LOC: ER 13:02 → MEDSURG3 16:20 → TELE3 18:07
PROVIDERS: ADMIT Internal Medicine; ATTEND Nurse Practitioner Family
PROC: 05HC33Z Insertion of Infusion Device into Left Basilic Vein, Percutaneous Approach (ICD-10-PCS; principal; 2025-05-18)
DX: K85.20 Alcohol induced acute pancreatitis without necrosis or infection (principal); E44.1 Mild protein-calorie malnutrition; M48.54XA Collapsed vertebra, not elsewhere classified, thoracic region, initial encounter for fracture; E88.09 Other disorders of plasma-protein metabolism, not elsewhere classified; Z53.29 Procedure and treatment not carried out because of patient's decision for other reasons; F10.129 Alcohol abuse with intoxication, unspecified; Y90.7 Blood alcohol level of 200-239 mg/100 ml; E87.1 Hypo-osmolality and hyponatremia; R73.9 Hyperglycemia, unspecified; N28.1 Cyst of kidney, acquired; F64.0 Transsexualism; K31.4 Gastric diverticulum; F17.210 Nicotine dependence, cigarettes, uncomplicated; Z79.899 Other long term (current) drug therapy; R33.9 Retention of urine, unspecified; Z88.5 Allergy status to narcotic agent; E78.5 Hyperlipidemia, unspecified; I10 Essential (primary) hypertension; E86.0 Dehydration; K86.1 Other chronic pancreatitis; K82.8 Other specified diseases of gallbladder
CPT/HCPCS: 36415; 70030-TC; 71045; 83690; 83735; 84100; 84478; 84703; 85025; A4606; A4663; G0378; G0480; J1171; J1308; J2405; J2470; J3475; J3480; J3490; J7040